=== PATIENT | male | born 1940 | race African-American/Black ===

== ENCOUNTER 2022-09-23 13:25 | Inpatient (IN) | payer OTHER ==
--- OUTSIDE RECORDS SUMMARY | 2022-09-23 13:32 | XMS REPORT | Continuity of Care Document ---
:1940 Author Organization [facility] t Address [address] [place] [address] Care Team Providers Name Role Phone Alberto Carter MD Primary Care Physician [phone] ALBERTO CARTER Attending Clinician Unavailable Srini VILLEGAS Attending Clinician Unavailable Srini Olsen Attending Clinician Alberto Carter MD Attending Clinician Doctor Unassigned, [place] Attending Clinician Unavailable Corrie Barnhart RN Attending Clinician Unavailable CRIS RODRIGUEZ Attending Clinician Unavailable Darnell Benitez Attending Clinician Cris Rodriguez MD Attending Clinician CEFERINO RAMACHANDRAN Attending Clinician Unavailable CEFERINO RAMACHANDRAN Attending Clinician Unavailable Ceferino Ramachandran DO Attending Clinician SHARI BARBOZA Attending Clinician Unavailable Jaye Maxwell DO Attending Clinician Shari Barboza MD Attending Clinician Ayad SAUCEDA, [place] Attending Clinician HAMILTON LION Attending Clinician Unavailable Hunter Olson MD Attending Clinician Paulo RUSSO, Paula Augustine Attending Clinician Unavailable Sagar BISWAS, Eric Attending Clinician Bib Sanchez DO Attending Clinician RIYA FORD Attending Clinician Unavailable HUNTER OLSON Attending Clinician Unavailable HUNTER OLSON Attending Clinician Unavailable Andreas RUSSO, Tanesha Attending Clinician Logan BISWAS, Riya Rojas Attending Clinician [phone] Rita Barnes MD Attending Clinician Irina Gaxiola MD Attending Clinician IRINA GAXIOLA Attending Clinician Unavailable MICHELE CARNEY Attending Clinician Unavailable Po, [facility] Attending Clinician Unavailable Jacob North MD Attending Clinician JACOB NORTH Attending Clinician Unavailable ASHLIE ANGEL Attending Clinician Unavailable Dakota BISWAS, Saumya Attending Clinician Todd Redd MD Attending Clinician TODD REDD Attending Clinician Unavailable Helio BISWAS, Nolberto Attending Clinician Kemal Lombardi MD Attending Clinician [phone] ALLAN KIRAN Attending Clinician Unavailable Po, [facility] Attending Clinician Unavailable Allan Sanders Attending Clinician 1, [facility] Attending Clinician Unavailable CRIS RODRIGUEZ Admitting Clinician Unavailable Cris Rodriguez MD Admitting Clinician SHARI BARBOZA Admitting Clinician Unavailable Shari Barboza MD Admitting Clinician Bib Sanchez DO Admitting Clinician Irina Gaxiola MD Admitting Clinician IRINA GAXIOLA Admitting Clinician Unavailable Kemal Lombardi MD Admitting Clinician [phone] Payers Payer Name Policy Type Policy Number Effective Date Expiration Date S ource MEDICARE PART A [id number] 2006 \\T\\ B 00:00:00 CARLOS HEADLEY [id number] 2013 00:00:00 Problems Condition Condition Condition Status Onset Resolution Last Treating Co mments Source Name Details Category Date Date Treatment Clinician Date Acute on Acute on Disease Active 2021-09 Unive rs chronic chronic 1-17 [place] congest[place] heart heart 00 Medical failure, failure, Branch unspecifie unspecifie d heart d heart failure failure type type Acute on Acute on Disease Active Unive rs chronic chronic 3-27 ity of diastolic diastolic 00:00: [place] congestive congestive 00 Me dical heart heart Branch failure failure Pulmonary Pulmonary Disease Active Uni vers hypertensi hypertensi 3-27 it y of on on 00:00: [place] 00 Medical Branch Acute Acute Disease Active Univers left-sided left-sided 3-26 it y of CHF CHF 00:00: [place] (congestiv (congestiv 00 Me dical e heart e heart Branch failure) failure) Hypoglycem Hypoglycem Disease Active U nivers ia ia 5-13 ity of 00:00: [place] 00 Medical Branch Syncope Syncope Disease Active Univers and and 3-08 ity of collapse collapse 00:00: [place] 00 Medical Branch Seizure Seizure Disease Active Univers 3-07 ity of 00:00: [place] 00 Medical Branch Acute Acute Disease Active Univers exacerbati exacerbati 7-14 it y of on of CHF on of CHF 00:00: [place] (congestiv (congestiv 00 Me dical e heart e heart Branch failure) failure) CHF CHF Disease Active Univers (congestiv (congestiv 6-23 it y of e heart e heart 00:00: [place] failure) failure) 00 Medica l Branch Obesity Obesity Disease Active 2015-09 Univers 0-01 ity of 00:00: [place] 00 Medical Branch 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 Univers diabetes diabetes 0-27 ity of mellitus mellitus 00:00: [place] without without 00 Medical complicati complicati Br anch on on Essential Essential Disease Active 2014-09 Uni vers hypertensi hypertensi 0-27 it y of on on 00:00: [place] 00 Medical Branch Gastroesop Gastroesop Disease Active 2014-09 U beatriz hageal hageal 0-27 ity of reflux reflux 00:00: [place] disease disease 00 Medical without without Branch esophagiti esophagiti s s Hyperchole Hyperchole Disease Active 2014-09 U beatriz sterolemia sterolemia 0-27 it y of 00:00: [place] 00 Medical Branch Coronary Coronary Disease Active 2014-09 Unive rs artery artery 0-27 ity of disease disease 00:00: [place] involving involving 00 Medi tushar coronary coronary Branch bypass bypass graft of graft of false pass false pass heart heart without without angina angina pectoris pectoris Hypothyroi Hypothyroi Disease Active 2014-09 U beatriz dism due dism due 0-27 ity of to to 00:00: [place] acquired acquired 00 Medica l atrophy of atrophy of Br anch thyroid thyroid Allergies, Adverse Reactions, Alerts Allergy Allergy Status Severity Reaction(s) Onset Inactive Treating Comm ents Source Name Type Date Date Clinician NO KNOWN Drug Active Univers ALLERGIE Class ity of S [facility] Social History Social Habit Start Date Stop Date Quantity Comments Source Exposure to 2022-08-21 2022-08-31 Not sure [facility] [place] of SARS-CoV-2 00:00:00 10:39:00 [place] Medical (event) Branch History SDOH 2022-07-25 2022-07-25 2 University o f Transport Med 00:00:00 00:00:00 [place] Medic al Branch History SDOH 2022-07-25 2022-07-25 2 University o f Transport Non-Med 00:00:00 00:00:00 [facility] edical Branch Tobacco use and 2022-07-22 2022-07-22 Smokeless tobacco Un iversity of exposure 00:00:00 00:00:00 non-user [facility] Alcohol intake 2022-07-22 2022-07-22 0 /d University of 00:00:00 00:00:00 [facility] History of 2006-09-29 Cigar Smoker University o f tobacco use 00:00:00 [facility] Sex [birth year] Universit y of 00:00:00 00:00:00 [facility] Smoking Status Start Date Stop Date Source Ex-smoker 2022-07-22 00:00:00 2022-07-22 00:00:00 [facility] Medications Ordered Filled Start Stop Current Ordering Indication Dosage Frequency Signature Comments Components Source Medication Medication Date Date Medication? Clinician (SIG) Name Name AMLODIPINE Yes TAKE 1 Unive rs 10 mg 1-12 TABLET BY ity of tablet 00:00: MOUTH [place] 00 EVERY DAY Medical IN THE Branch MORNING AMLODIPINE Yes TAKE 1 Unive rs 10 mg 1-12 TABLET BY ity of tablet 00:00: MOUTH [place] 00 EVERY DAY Medical IN THE Branch MORNING AMLODIPINE Yes TAKE 1 Unive rs 10 mg 1-12 TABLET BY ity of tablet 00:00: MOUTH [place] 00 EVERY DAY Medical IN THE Branch MORNING levothyroxi Yes 88ug Take 1 Univ ers ne 88 mcg 1-09 tablet by ity o f tablet 00:00: mouth [place] 00 every Medical morning. Branch levothyroxi Yes 88ug Take 1 Univ ers ne 88 mcg 1-09 tablet by ity o f tablet 00:00: mouth [place] 00 every Medical morning. Branch levothyroxi Yes 88ug Take 1 Univ ers ne 88 mcg 1-09 tablet by ity o f tablet 00:00: mouth [place] 00 every Medical morning. Branch levothyroxi Yes 88ug Take 1 Univ ers ne 88 mcg 1-09 tablet by ity o f tablet 00:00: mouth [place] 00 every Medical morning. Branch hydrALAZINE 2021-09 Yes [id number] 50mg Take 1 Univers 50 mg 2-29 tablet by ity of tablet 00:00: mouth [place] 00 every 8 Medical (eight) Branch hours. furosemide 2021-09 Yes [id number] 40mg Take 1 Univers 40 mg 2-29 tablet by ity of tablet 00:00: mouth [place] 00 every Medical morning Branch and evening. hydrALAZINE 2021-09 Yes [id number] 50mg Take 1 Univers 50 mg 2-29 tablet by ity of tablet 00:00: mouth [place] 00 every 8 Medical (eight) Branch hours. furosemide 2021-09 Yes [id number] 40mg Take 1 Univers 40 mg 2-29 tablet by ity of tablet 00:00: mouth [place] 00 every Medical morning Branch and evening. hydrALAZINE 2021-09 Yes [id number] 50mg Take 1 Univers 50 mg 2-29 tablet by ity of tablet 00:00: mouth [place] 00 every 8 Medical (eight) Branch hours. furosemide 2021-09 Yes [id number] 40mg Take 1 Univers 40 mg 2-29 tablet by ity of tablet 00:00: mouth [place] 00 every Medical morning Branch and evening. hydrALAZINE 2021-09 Yes [id number] 50mg Take 1 Univers 50 mg 2-29 tablet by ity of tablet 00:00: mouth [place] 00 every 8 Medical (eight) Branch hours. furosemide 2021-09 Yes [id number] 40mg Take 1 Univers 40 mg 2-29 tablet by ity of tablet 00:00: mouth [place] 00 every Medical morning Branch and evening. hydrALAZINE 2021-09 Yes [id number] 50mg Take 1 Univers 50 mg 2-29 tablet by ity of tablet 00:00: mouth [place] 00 every 8 Medical (eight) Branch hours. furosemide 2021-09 Yes [id number] 40mg Take 1 Univers 40 mg 2-29 tablet by ity of tablet 00:00: mouth [place] 00 every Medical morning Branch and evening. hydrALAZINE 2021-09 Yes [id number] 50mg Take 1 Univers 50 mg 2-29 tablet by ity of tablet 00:00: mouth [place] 00 every 8 Medical (eight) Branch hours. furosemide 2021-09 Yes [id number] 40mg Take 1 Univers 40 mg 2-29 tablet by ity of tablet 00:00: mouth [place] 00 every Medical morning Branch and evening. hydrALAZINE 2021-09 Yes [id number] 50mg Take 1 Univers 50 mg 2-29 tablet by ity of tablet 00:00: mouth [place] 00 every 8 Medical (eight) Branch hours. furosemide 2021-09 Yes [id number] 40mg Take 1 Univers 40 mg 2-29 tablet by ity of tablet 00:00: mouth [place] 00 every Medical morning Branch and evening. CLOPIDOGREL 2021-09 Yes TAKE 1 Univ ers 75 mg 2-28 TABLET BY ity of tablet 00:00: MOUTH [place] 00 EVERY DAY Medical Branch CLOPIDOGREL 2021-09 Yes TAKE 1 Univ ers 75 mg 2-28 TABLET BY ity of tablet 00:00: MOUTH [place] 00 EVERY DAY Medical Branch CLOPIDOGREL 2021-09 Yes TAKE 1 Univ ers 75 mg 2-28 TABLET BY ity of tablet 00:00: MOUTH [place] 00 EVERY DAY Medical Branch CLOPIDOGREL 2021- Yes TAKE 1 Univ ers 75 mg 2-28 TABLET BY ity of tablet 00:00: MOUTH [place] 00 EVERY DAY Medical Branch CLOPIDOGREL 2021- Yes TAKE 1 Univ ers 75 mg 2-28 TABLET BY ity of tablet 00:00: MOUTH [place] 00 EVERY DAY Medical Branch CLOPIDOGREL 2021- Yes TAKE 1 Univ ers 75 mg 2-28 TABLET BY ity of tablet 00:00: MOUTH [place] 00 EVERY DAY Medical Branch CLOPIDOGREL 2021- Yes TAKE 1 Univ ers 75 mg 2-28 TABLET BY ity of tablet 00:00: MOUTH [place] 00 EVERY DAY Medical Branch CLOPIDOGREL 2021- Yes TAKE 1 Univ ers 75 mg 2-28 TABLET BY ity of tablet 00:00: MOUTH [place] 00 EVERY DAY Medical Branch hydrALAZINE 2021-09 Yes 50mg Take 1 Univ ers 50 mg 2-23 tablet by ity of tablet 00:00: mouth in [place] 00 the Medical morning Branch and 1 tablet in the evening. hydrALAZINE 2021-09 Yes 50mg Take 1 Univ ers 50 mg 2-23 tablet by ity of tablet 00:00: mouth in [place] 00 the Medical morning Branch and 1 tablet in the evening. hydrALAZINE 2021-09 Yes 50mg Take 1 Univ ers 50 mg 2-23 tablet by ity of tablet 00:00: mouth in [place] 00 the Medical morning Branch and 1 tablet in the evening. furosemide 2021-09- Yes 40mg Take 1 Univ ers 40 mg 2-23 03-24 tablet by ity of tablet 00:00: 04:59 mouth in [place] 00 :00 the Medical morning Branch for 90 days. atorvastati 2021-09- Yes 40mg Take 1 Uni vers n 40 mg 2-23 03-24 tablet by ity of tablet 00:00: 04:59 mouth at [place] 00 :00 bedtime Medical for 90 Branch days. furosemide 2021-09- Yes 40mg Take 1 Univ ers 40 mg 2-23 03-24 tablet by ity of tablet 00:00: 04:59 mouth in [place] 00 :00 the Medical morning Branch for 90 days. atorvastati 2021-09- Yes 40mg Take 1 Uni vers n 40 mg 2-23 03-24 tablet by ity of tablet 00:00: 04:59 mouth at [place] 00 :00 bedtime Medical for 90 Branch days. furosemide 2021-09- Yes 40mg Take 1 Univ ers 40 mg 2-23 11-24 tablet by ity of tablet 00:00: 04:59 mouth in [place] 00 :00 the Medical morning Branch for 90 days. atorvastati 2021-09- Yes 40mg Take 1 Uni vers n 40 mg 2-23 11-24 tablet by ity of tablet 00:00: 04:59 mouth at [place] 00 :00 bedtime Medical for 90 Branch days. atorvastati 2021-09- Yes 40mg Take 1 Uni vers n 40 mg 2-23 11-24 tablet by ity of tablet 00:00: 04:59 mouth at [place] 00 :00 bedtime Medical for 90 Branch days. atorvastati 2021-09- Yes 40mg Take 1 Uni vers n 40 mg 2-23 11-24 tablet by ity of tablet 00:00: 04:59 mouth at [place] 00 :00 bedtime Medical for 90 Branch days. atorvastati 2021-09- Yes 40mg Take 1 Uni vers n 40 mg 2-24 tablet by ity of tablet 00:00: 04:59 mouth at [place] 00 :00 bedtime Medical for 90 Branch days. atorvastati 2021-09- Yes 40mg Take 1 Uni vers n 40 mg 2-24 tablet by ity of tablet 00:00: 04:59 mouth at [place] 00 :00 bedtime Medical for 90 Branch days. atorvastati 2021-09- Yes 40mg Take 1 Uni vers n 40 mg 2-23 11-24 tablet by ity of tablet 00:00: 04:59 mouth at [place] 00 :00 bedtime Medical for 90 Branch days. atorvastati 2021-09- Yes 40mg Take 1 Uni vers n 40 mg 2-23 11-24 tablet by ity of tablet 00:00: 04:59 mouth at [place] 00 :00 bedtime Medical for 90 Branch days. atorvastati 2021-09- Yes 40mg Take 1 Uni vers n 40 mg 2-23 11-24 tablet by ity of tablet 00:00: 04:59 mouth at [place] 00 :00 bedtime Medical for 90 Branch days. furosemide 2021-09- No 40mg Take 1 Univ ers 40 mg 2-25 08-29 tablet by ity of tablet 00:00: 00:00 mouth in [place] 00 :00 the Medical morning Branch for 90 days. hydrALAZINE 2021-09- No 50mg Take 1 Uni vers 50 mg -08-31 tablet by ity of tablet 00:00: 00:00 mouth in [place] 00 :00 the Medical morning Branch and 1 tablet in the evening. furosemide 2021-09- No 40mg Take 1 Univ ers 40 mg -25 08- tablet by ity of tablet 00:00: 00:00 mouth in [place] 00 :00 the Medical morning Branch for 90 days. hydrALAZINE 2021-09- No 50mg Take 1 Uni vers 50 mg -08-31 tablet by ity of tablet 00:00: 00:00 mouth in [place] 00 :00 the Medical morning Branch and 1 tablet in the evening. ferrous 2021-09 Yes [id number] 325mg Take 1 Un yassine sulfate 325 1-22 tablet by ity of mg (65 mg 00:00: [place] 00 the Medical tablet morning. [place] ferrous 2021-09 Yes [id number] 325mg Take 1 Un yassine sulfate 325 1-22 tablet by ity of mg (65 mg 00:00: [place] 00 the Medical tablet morning. Branch ferrous 2021-09 Yes [id number] 325mg Take 1 Un yassine sulfate 325 1-22 tablet by ity of mg (65 mg 00:00: [place] 00 the Medical tablet morning. [place] ferrous 2021-09 Yes [id number] 325mg Take 1 Un yassine sulfate 325 1-22 tablet by ity of mg (65 mg 00:00: [place] iron[place] 00 the Medical tablet morning. [place] ferrous 2021-09 Yes [id number] 325mg Take 1 Un yassine sulfate 325 1-22 tablet by ity of mg (65 mg 00:00: [place] iron[place] 00 the Medical tablet morning. Branch ferrous 2021-09 Yes [id number] 325mg Take 1 Un yassine sulfate 325 1-22 tablet by ity of mg (65 mg 00:00: [place] iron[place] 00 the Medical tablet morning. [place] ferrous 2021-09 Yes [id number] 325mg Take 1 Un yassine sulfate 325 1-22 tablet by ity of mg (65 mg 00:00: [place] 00 the Medical tablet morning. Branch ferrous 2021-09 Yes [id number] 325mg Take 1 Un yassine sulfate 325 1-22 tablet by ity of mg (65 mg 00:00: [place] 00 the Medical tablet morning. Branch ferrous 2021-09 Yes [id number] 325mg Take 1 Un yassine sulfate 325 1-22 tablet by ity of mg (65 mg 00:00: [place] 00 the Medical tablet morning. Branch ferrous 2021-09 Yes [id number] 325mg Take 1 Un yassine sulfate 325 1-22 tablet by ity of mg (65 mg 00:00: [place] 00 the Medical tablet morning. Branch ferrous 2021-09 Yes [id number] 325mg Take 1 Un yassine sulfate 325 1-22 tablet by ity of mg (65 mg 00:00: [place] 00 the Medical tablet morning. Branch ferrous 2021-09 Yes [id number] 325mg Take 1 Un yassine sulfate 325 1-22 tablet by ity of mg (65 mg 00:00: [place] iron[place] 00 the Medical tablet morning. Branch ferrous 2021-09 Yes [id number] 325mg Take 1 Un yassine sulfate 325 1-22 tablet by ity of mg (65 mg 00:00: [place] iron[place] 00 the Medical tablet morning. Branch ferrous 2021-09 Yes [id number] 325mg Take 1 Un yassine sulfate 325 1-22 tablet by ity of mg (65 mg 00:00: [place] iron[place] 00 the Medical tablet morning. Branch ferrous 2021-09 Yes [id number] 325mg Take 1 Un yassine sulfate 325 1-22 tablet by ity of mg (65 mg 00:00: [place] iron[place] 00 the Medical tablet morning. Branch ferrous 2021-09 Yes [id number] 325mg Take 1 Un yassine sulfate 325 1-22 tablet by ity of mg (65 mg 00:00: [place] iron[place] 00 the Medical tablet morning. Branch hydrALAZINE 2021-09 Yes 50mg 50 mg, Univ ers (APRESOLINE 1-21 Oral, TID, it y of ) tablet 50 20:00: First dose [place] mg 00 (after Medical [facility] Branch modificati on) on 07/24/22 at 1400, Until Discontinu ed, Routine aspirin 81 2021-09 Yes 81mg Take 81 mg U nivers mg chewable 1-21 by mouth ity of tablet 18:17: daily. [address] aspirin 81 2021-09 Yes 81mg Take 81 mg U nivers mg chewable 1-21 by mouth ity of tablet 18:17: daily. [address] Branch aspirin 81 2021-09 Yes 81mg Take 81 mg U nivers mg chewable 1-21 by mouth ity of tablet 18:17: daily. [address] aspirin 81 2021-09 Yes 81mg Take 81 mg U nivers mg chewable 1-21 by mouth ity of tablet 18:17: daily. [address] Branch aspirin 81 2021-09 Yes 81mg Take 81 mg U nivers mg chewable 1-21 by mouth ity of tablet 18:17: daily. [address] aspirin 81 2021-09 Yes 81mg Take 81 mg U nivers mg chewable 1-21 by mouth ity of tablet 18:17: daily. [address] aspirin 81 2021-09 Yes 81mg Take 81 mg U nivers mg chewable 1-21 by mouth ity of tablet 18:17: daily. [address] aspirin 81 2021-09 Yes 81mg Take 81 mg U nivers mg chewable 1-21 by mouth ity of tablet 18:17: daily. [address] aspirin 81 2021-09 Yes 81mg Take 81 mg U nivers mg chewable 1-21 by mouth ity of tablet 18:17: daily. [address] aspirin 81 2021-09 Yes 81mg Take 81 mg U nivers mg chewable 1-21 by mouth ity of tablet 18:17: daily. [address] aspirin 81 2021-09 Yes 81mg Take 81 mg U nivers mg chewable 1-21 by mouth ity of tablet 18:17: daily. [address] aspirin 81 2021-09 Yes 81mg Take 81 mg U nivers mg chewable 1-21 by mouth ity of tablet 18:17: daily. [address] aspirin 81 2021-09 Yes 81mg Take 81 mg U nivers mg chewable 1-21 by mouth ity of tablet 18:17: daily. [address] aspirin 81 2021-09 Yes 81mg Take 81 mg U nivers mg chewable -21 by mouth ity of tablet 18:17: daily. [address] aspirin 81 2021-09 Yes 81mg Take 81 mg U nivers mg chewable -21 by mouth ity of tablet 18:17: daily. [address] aspirin 81 2021-09 Yes 81mg Take 81 mg U nivers mg chewable -21 by mouth ity of tablet 18:17: daily. [address] magnesium 2021-09- No 2g 2 g, IV Univ ers sulfate in 09-23 Piggyback, it y of water 2 16:00: 18:04 Administer Julio as gram/50 mL 00 :00 over 60 Medica l (4 %) Minutes, Branch infusion 2 ONCE, 1 g dose, On [facility] 07/24/22 at 1000, Routine KCL 2021-09 No 40meq 40 mEq, Univers (KLOR-CON 09-23 Oral, ity of M20) tablet 16:00: 17:01 ONCE, 1 [place] 40 mEq 00 :00 dose, On Medical [facility] 07/24/22 at 1000, Routine ferrous 2021-09 Yes 325mg 325 mg, Univer s sulfate 09-23 Oral, ity of tablet 325 15:00: DAILY, [place] mg 00 First dose Medical on [facility] 07/24/22 at 0900, Until Discontinu ed, Routine insulin NPH 2021-09 Yes 10U 10 Units, U nivers and regular 09-23 Subcutaneo it y of human 70-30 14:30: us, BIDAC, [place] (70-30 00 First dose Medical U-100 on [facility] INSULIN) 07/24/22 100 unit/mL at 0830, (70-30) Until injection Discontinu 10 Units ed, Routine furosemide 2021-09 Yes 40mg 40 mg, IV Un yassine (LASIX) 09-23 Push, BID, ity of injection 14:00: First dose [place] 40 mg 00 (after Medical last Branch modificati on) on [facility] 07/24/22 at 0800, Until Discontinu ed, ELO hydrALAZINE 2022-1 2022- No 50mg 50 mg, Uni vers (APRESOLINE 09-23- Oral, BID, i ty of ) tablet 50 02:00: 15:09 First dose [place] mg 00 :28 (after Medical last Branch modificati on) on 07/23/22 at 1999, Until Discontinu ed, Routine atorvastati 2021-09- Yes [id number] 40mg Take 1 Univers n 40 mg -23 08-22 tablet by ity of tablet 00:00: 05:59 mouth at [place] 00 :00 bedtime Medical for 30 Branch days. carvediloL 2021-09- Yes [id number] 25mg Take 1 Univers 25 mg -23 08-22 tablet by ity of tablet 00:00: 05:59 mouth in [place] 00 :00 the Medical morning Branch and 1 tablet in the evening. Do all this for 30 days. hydrALAZINE 2021-09- Yes [id number] 50mg Take 1 Univers 50 mg -23 08-22 tablet by ity of tablet 00:00: 05:59 mouth in [place] 00 :00 the Medical morning Branch and 1 tablet at noon and 1 tablet in the evening. Do all this for 30 days. furosemide 2021-09- Yes [id number] 40mg Take 1 Univers 40 mg -23 08-22 tablet by ity of tablet 00:00: 05:59 mouth [place] 00 :00 every Medical morning Branch and evening for 30 days. atorvastati 2021-09- Yes [id number] 40mg Take 1 Univers n 40 mg -23 08-22 tablet by ity of tablet 00:00: 05:59 mouth at [place] 00 :00 bedtime Medical for 30 Branch days. carvediloL 2021-09- Yes [id number] 25mg Take 1 Univers 25 mg -21 12-22 tablet by ity of tablet 00:00: 05:59 mouth in [place] 00 :00 the Medical morning Branch and 1 tablet in the evening. Do all this for 30 days. hydrALAZINE 2021-09- Yes [id number] 50mg Take 1 Univers 50 mg -21 12-22 tablet by ity of tablet 00:00: 05:59 mouth in [place] 00 :00 the Medical morning Branch and 1 tablet at noon and 1 tablet in the evening. Do all this for 30 days. furosemide 2021-09- Yes [id number] 40mg Take 1 [facility] 40 mg 1-21 12-22 tablet by ity of tablet 00:00: 05:59 mouth [place] 00 :00 every Medical morning Branch and evening for 30 days. atorvastati 2021-09- Yes [id number] 40mg Take 1 Univers n 40 mg 1-21 12-22 tablet by ity of tablet 00:00: 05:59 mouth at [place] 00 :00 bedtime Medical for 30 Branch days. carvediloL 2021-09- Yes [id number] 25mg Take 1 Univers 25 mg 1-21 12-22 tablet by ity of tablet 00:00: 05:59 mouth in [place] 00 :00 the Medical morning Branch and 1 tablet in the evening. Do all this for 30 days. hydrALAZINE 2021-09- Yes [id number] 50mg Take 1 Univers 50 mg 1-21 12-22 tablet by ity of tablet 00:00: 05:59 mouth in [place] 00 :00 the Medical morning Branch and 1 tablet at noon and 1 tablet in the evening. Do all this for 30 days. furosemide 2021-09- Yes [id number] 40mg Take 1 [facility] 40 mg 1-21 12-22 tablet by ity of tablet 00:00: 05:59 mouth [place] 00 :00 every Medical morning Branch and evening for 30 days. atorvastati 2021-09- Yes [id number] 40mg Take 1 Univers n 40 mg 1-21 12-22 tablet by ity of tablet 00:00: 05:59 mouth at [place] 00 :00 bedtime Medical for 30 Branch days. carvediloL 2021-09- Yes [id number] 25mg Take 1 Univers 25 mg 1-21 12-22 tablet by ity of tablet 00:00: 05:59 mouth in [place] 00 :00 the Medical morning Branch and 1 tablet in the evening. Do all this for 30 days. hydrALAZINE 2021-09- Yes [id number] 50mg Take 1 Univers 50 mg 1-21 12-22 tablet by ity of tablet 00:00: 05:59 mouth in [place] 00 :00 the Medical morning Branch and 1 tablet at noon and 1 tablet in the evening. Do all this for 30 days. furosemide 2021-09- Yes [id number] 40mg Take 1 Univers 40 mg 09-23-22 tablet by ity of tablet 00:00: 05:59 mouth [place] 00 :00 every Medical morning Branch and evening for 30 days. atorvastati 2021-09- Yes [id number] 40mg Take 1 Univers n 40 mg 09-23-22 tablet by ity of tablet 00:00: 05:59 mouth at [place] 00 :00 bedtime Medical for 30 Branch days. carvediloL 2021-09- Yes [id number] 25mg Take 1 Univers 25 mg 09-23- tablet by ity of tablet 00:00: 05:59 mouth in [place] 00 :00 the Medical morning Branch and 1 tablet in the evening. Do all this for 30 days. hydrALAZINE 2021-09- Yes [id number] 50mg Take 1 Univers 50 mg 09-23- tablet by ity of tablet 00:00: 05:59 mouth in [place] 00 :00 the Medical morning Branch and 1 tablet at noon and 1 tablet in the evening. Do all this for 30 days. furosemide 2021-09- Yes [id number] 40mg Take 1 [facility] 40 mg 09-23 tablet by ity of tablet 00:00: 05:59 mouth [place] 00 :00 every Medical morning Branch and evening for 30 days. hydrALAZINE 2021-09- No 25mg 25 mg, Uni vers (APRESOLINE -23 07-20 Oral, ity of ) tablet 25 16:00: 15:47 ONCE, 1 [place] mg 00 :00 dose, On Medical [place] [facility] 07/23/22 at 1000, Routine atorvastati 2021-09 Yes 40mg 40 mg, Univ ers n (LIPITOR) 1-20 Oral, QHS, it y of tablet 40 03:00: First dose [place] mg 00 (after Medical last Branch modificati on) on [facility] 07/22/22 at 2100, Until Discontinu ed, Routine metFORMIN 2021-09- No 500mg 500 mg, Uni vers (GLUCOPHAGE -22 07-20 Oral, BID it y of ) tablet 23:00: 20:49 MEALS, [place] 500 mg 00 :14 First dose Medical on Sat Branch 07/22/22 at 1700, Until Discontinu ed, Routine furosemide 2021-09- No 40mg 40 mg, IV U nivers (LASIX) 09-21 Push, TID, ity o f injection 20:00: 20:10 First dose [place] 40 mg 00 :17 (after Medical last Branch modificati on) on 07/22/22 at 1400, Until Discontinu ed, ELO atorvastati 2021-09- No 10mg 10 mg, Uni vers n (LIPITOR) 09-21 Oral, QHS, i ty of tablet 10 03:00: 20:43 First dose [place] mg 00 :00 on [facility] 07/21/22 Branch at 2100, Until Discontinu ed, Routine enoxaparin 2021-09 Yes 40mg 40 mg, Unive rs (LOVENOX) -18 Subcutaneo ity of injection 15:00: us, DAILY, [place] 40 mg 00 First dose Medical on [place] Branch 07/21/22 at 0900, Until Discontinu ed, Routine clopidogreL 2021-09 Yes 75mg 75 mg, Univ ers (PLAVIX) 75 -18 Oral, ity of mg tablet 15:00: DAILY, [place] 75 mg 00 First dose Medical on [place] [facility] 07/21/22 at 0900, Until Discontinu ed, Routine aspirin 2021-09 Yes 81mg 81 mg, [facility] chewable 18 Oral, ity of tablet 81 15:00: DAILY, [place] mg 00 First dose Medical on [place] [facility] 07/21/22 at 0900, Until Discontinu ed, Routine amLODIPine 2021-09 Yes 10mg 10 mg, Unive rs (NORVASC) 18 Oral, ity of tablet 10 15:00: DAILY, [place] mg 00 First dose Medical on [place] [facility] 07/21/22 at 0900, Until Discontinu ed, Routine Sliding 2021-09 Yes Subcutaneo Univ ers Scale -18 us, TID ity of Insulin - 14:00: MEALS+HS, [place] as Lispro 00 First dose Medical (HumaLOG) + on [facility] 07/21/22 Testing at 0800, Until Discontinu ed, Routine carvediloL 2021-09 Yes 25mg 25 mg, Unive rs (COREG) 1-18 Oral, BID, ity of tablet 25 14:00: First dose [place] mg 00 on [facility] 07/21/22 Branch at 0800, Until Discontinu ed, Routine hydrALAZINE 2021-09 No 25mg 25 mg, Uni vers (APRESOLINE 09-2020 Oral, BID, i ty of ) tablet 25 14:00: 14:48 First dose [place] mg 00 :02 on [facility] 07/21/22 Branch at 0800, Until Discontinu ed, Routine furosemide 2021-09 No 40mg 40 mg, IV U nivers (LASIX) 09-20 1119 Push, ity of injection 14:00: 16:58 Q12H, [place] 40 mg 00 :05 First dose Medical (after Branch last reorder) on Sun07/21/22 at 0800, Until Discontinu ed, ELO levothyroxi 2021-09 Yes 88ug 88 mcg, Uni vers ne 09-20 Oral, ity of (SYNTHROID) 12:00: QAM-0600, [place] tablet 88 00 First dose Medi tushar mcg on [place] [facility] 07/21/22 at 0600, Until Discontinu ed, Routine acetaminoph 2021-09 Yes 650mg 650 mg, Un yassine en 09-20 Oral, ity of (TYLENOL) 06:10: Q6HPRN, [place] tablet 650 20 Starting Medic al mg on [facility] 07/21/22 at 0010, Until Discontinu ed, Routine, Pain (scale 1-3) glucagon 2021-09 Yes 1mg 1 mg, [facility] (GLUCAGEN 09-20 Intramuscu ity of DIAGNOSTIC 06:01: lar, PRN, [place] KIT) 17 Starting Medical injection 1 on [facility] mg 07/21/22 at 0001, Until Discontinu ed, ELO, Blood Glucose < or = 70 mg/dL and patient is unable to swallow or has mental changes. dextrose 50 2021-09 Yes 25mL 25 mL, Univ ers % in water 18 Slow IV ity of (D50W) 06:01: Push, PRN, [place] injection 17 Starting Medica l 25 mL on [facility] Branch 07/21/22 at 0001, Until Discontinu ed, ELO, Blood Glucose < or = 70 mg/dL and patient is unable to swallow or has mental status changes. nitroglycer 2021-09 No .5[in_u 0.5 Inch, Univers in (NITROL) 09-20 11-18 s] Transderma i ty of 2 % 00:30: 00:21 l (Apply [place] ointment 00 :00 To Skin), Medica l 0.5 Inch ONCE, 1 Branch dose, On [place] 07/20/22 at 1830, ELO furosemide 2021-09- No 40mg 40 mg, IV U nivers (LASIX) 09-19 Push, ity of injection 23:30: 23:52 ONCE, 1 [place] 40 mg 00 :00 dose, On Medical [place] Branch 07/20/22 at 1730, ELO losartan 25 2021-0 Yes 25mg Take 25 mg [facility] mg tablet 9-17 by mouth ity of 00:00: in the [place] 00 morning. Medical Branch losartan 25 2021-0 Yes 25mg Take 25 mg [facility] mg tablet 9-17 by mouth ity of 00:00: in the [place] 00 morning. Medical Branch losartan 25 2021-0 Yes 25mg Take 25 mg [facility] mg tablet 9-17 by mouth ity of 00:00: in the [place] 00 morning. Medical Branch losartan 25 2021-0 Yes 25mg Take 25 mg [facility] mg tablet 9-17 by mouth ity of 00:00: in the [place] 00 morning. Medical Branch losartan 25 2021-0 Yes 25mg Take 25 mg [facility] mg tablet 9-17 by mouth ity of 00:00: in the [place] 00 morning. Medical Branch losartan 25 2021-0 Yes 25mg Take 25 mg [facility] mg tablet 9-17 by mouth ity of 00:00: in the [place] 00 morning. Medical Branch losartan 25 2021-0 Yes 25mg Take 25 mg [facility] mg tablet 9-17 by mouth ity of 00:00: in the [place] 00 morning. Medical Branch losartan 25 2021-0 Yes 25mg Take 25 mg [facility] mg tablet 9-17 by mouth ity of 00:00: in the [place] 00 morning. Medical Branch losartan 25 2021-0 Yes 25mg Take 25 mg [facility] mg tablet 9-17 by mouth ity of 00:00: in the [place] 00 morning. Medical Branch losartan 25 2022-0 Yes 25mg Take 25 mg [facility] mg tablet 9-17 by mouth ity of 00:00: in the [place] morning. Medical Branch losartan 25 2022-0 Yes 25mg Take 25 mg [facility] mg tablet 9-17 by mouth ity of 00:00: in the [place] morning. Medical Branch losartan 25 2022-0 Yes 25mg Take 25 mg [facility] mg tablet 9-17 by mouth ity of 00:00: in the [place] morning. Medical Branch losartan 25 2022-0 Yes 25mg Take 25 mg [facility] mg tablet 9-17 by mouth ity of 00:00: in the [place] morning. Medical Branch amLODIPine 2022-0 Yes 10mg Take 1 Unive rs 10 mg 7-21 tablet by ity of tablet 00:00: mouth in [place] the morning. Branch amLODIPine 2022-0 Yes 10mg Take 1 Unive rs 10 mg 7-21 tablet by ity of tablet 00:00: mouth in [place] the morning. Branch amLODIPine 2022-0 Yes 10mg Take 1 Unive rs 10 mg 7-21 tablet by ity of tablet 00:00: mouth in [place] the Medical morning. Branch amLODIPine 2022-0 Yes 10mg Take 1 Unive rs 10 mg 7-21 tablet by ity of tablet 00:00: mouth in [place] the Medical morning. Branch amLODIPine 2022-0 Yes 10mg Take 1 Unive rs 10 mg 7-21 tablet by ity of tablet 00:00: mouth in [place] the Medical morning. Branch amLODIPine 2022-0 Yes 10mg Take 1 Unive rs 10 mg 7-21 tablet by ity of tablet 00:00: mouth in [place] the Medical morning. Branch amLODIPine 2022-0 Yes 10mg Take 1 Unive rs 10 mg 7-21 tablet by ity of tablet 00:00: mouth in [place] the Medical morning. Branch amLODIPine 2022-0 Yes 10mg Take 1 Unive rs 10 mg 7-21 tablet by ity of tablet 00:00: mouth in [place] the Medical morning. Branch amLODIPine 2022-0 Yes 10mg Take 1 Unive rs 10 mg 7-21 tablet by ity of tablet 00:00: mouth in [place] the Medical morning. Branch amLODIPine 2022-0 Yes 10mg Take 1 Unive rs 10 mg 7-21 tablet by ity of tablet 00:00: mouth in [place] 00 the Medical morning. Branch amLODIPine 2022-0 Yes 10mg Take 1 Unive rs 10 mg 7-21 tablet by ity of tablet 00:00: mouth in [place] 00 the Medical morning. Branch amLODIPine 2022-0 Yes 10mg Take 1 Unive rs 10 mg 7-21 tablet by ity of tablet 00:00: mouth in [place] 00 the Medical morning. Branch amLODIPine 2022-0 Yes 10mg Take 1 Unive rs 10 mg 7-21 tablet by ity of tablet 00:00: mouth in [place] 00 the Medical morning. Branch amLODIPine 2022-0 Yes 10mg Take 1 Unive rs 10 mg 7-21 tablet by ity of tablet 00:00: mouth in [place] 00 the Medical morning. Branch amLODIPine 2022-0 Yes 10mg Take 1 Unive rs 10 mg 7-21 tablet by ity of tablet 00:00: mouth in [place] 00 the Medical morning. Branch amLODIPine 2022-0 Yes 10mg Take 1 Unive rs 10 mg 7-21 tablet by ity of tablet 00:00: mouth in [place] 00 the Medical morning. Branch amLODIPine 2022-0 Yes 10mg Take 1 Unive rs 10 mg 7-21 tablet by ity of tablet 00:00: mouth in [place] 00 the Medical morning. Branch amLODIPine 2022-0 Yes 10mg Take 1 Unive rs 10 mg 7-21 tablet by ity of tablet 00:00: mouth in [place] 00 the Medical morning. Branch amLODIPine 2022-0 2023- No 10mg Take 1 Univ ers 10 mg 7-21 01-12 tablet by ity of tablet 00:00: 00:00 mouth in [place] 00 :00 the Medical morning. Branch hydrALAZINE 2022-0 Yes [id number] 25mg Take 1 [facility] 25 mg 7-08 tablet by ity of tablet 00:00: mouth 2 [place] 00 (two) Medical times Branch daily. hydrALAZINE 2022-0 Yes [id number] 25mg Take 1 [facility] 25 mg 7-08 tablet by ity of tablet 00:00: mouth 2 [place] 00 (two) Medical times Branch daily. hydrALAZINE 2022-0 Yes [id number] 25mg Take 1 [facility] 25 mg 7-08 tablet by ity of tablet 00:00: mouth 2 [place] 00 (two) Medical times Branch daily. hydrALAZINE 2022-0 Yes [id number] 25mg Take 1 [facility] 25 mg 7-08 tablet by ity of tablet 00:00: mouth 2 00 (two) Medical times Branch daily. hydrALAZINE 2-0 Yes [id number] 25mg Take 1 [facility] 25 mg 7-08 tablet by ity of tablet 00:00: mouth 2 00 (two) Medical times Branch daily. hydrALAZINE 2-0 2022- No [id number] 25mg Take 1 [facility] 25 mg 7-08 11-21 tablet by ity of tablet 00:00: 00:00 mouth 2 [place] 00 :00 (two) Medical times Branch daily. levothyroxi 2022-0 Yes 88ug Take 1 Univ ers ne 88 mcg 6-28 tablet by ity o f tablet 00:00: mouth [place] 00 every Medical morning. Branch clopidogreL 2022-0 Yes 75mg Take 1 Univ ers 75 mg 6-28 tablet by ity of tablet 00:00: mouth [place] 00 daily. Medical Branch levothyroxi 2022-0 Yes 88ug Take 1 Univ ers ne 88 mcg 6-28 tablet by ity o f tablet 00:00: mouth [place] 00 every Medical morning. Branch clopidogreL 2022-0 Yes 75mg Take 1 Univ ers 75 mg 6-28 tablet by ity of tablet 00:00: mouth [place] 00 daily. Medical Branch levothyroxi 2022-0 Yes 88ug Take 1 Univ ers ne 88 mcg 6-28 tablet by ity o f tablet 00:00: mouth [place] 00 every Medical morning. Branch clopidogreL 2022-0 Yes 75mg Take 1 Univ ers 75 mg 6-28 tablet by ity of tablet 00:00: mouth [place] 00 daily. Medical Branch levothyroxi 2022-0 Yes 88ug Take 1 Univ ers ne 88 mcg 6-28 tablet by ity o f tablet 00:00: mouth [place] 00 every Medical morning. Branch clopidogreL 2022-0 Yes 75mg Take 1 Univ ers 75 mg 6-28 tablet by ity of tablet 00:00: mouth [place] 00 daily. Medical Branch levothyroxi 2022-0 Yes 88ug Take 1 Univ ers ne 88 mcg 6-28 tablet by ity o f tablet 00:00: mouth [place] 00 every Medical morning. Branch clopidogreL 2022-0 Yes 75mg Take 1 Univ ers 75 mg 6-28 tablet by ity of tablet 00:00: mouth [place] 00 daily. Medical Branch levothyroxi 2022-0 Yes 88ug Take 1 Univ ers ne 88 mcg 6-28 tablet by ity o f tablet 00:00: mouth [place] 00 every Medical morning. Branch clopidogreL 2022-0 Yes 75mg Take 1 Univ ers 75 mg 6-28 tablet by ity of tablet 00:00: mouth [place] 00 daily. Medical Branch levothyroxi 2022-0 Yes 88ug Take 1 Univ ers ne 88 mcg 6-28 tablet by ity o f tablet 00:00: mouth [place] 00 every Medical morning. Branch clopidogreL 2022-0 Yes 75mg Take 1 Univ ers 75 mg 6-28 tablet by ity of tablet 00:00: mouth [place] 00 daily. Medical Branch levothyroxi 2022-0 Yes 88ug Take 1 Univ ers ne 88 mcg 6-28 tablet by ity o f tablet 00:00: mouth [place] 00 every Medical morning. Branch clopidogreL 2022-0 Yes 75mg Take 1 Univ ers 75 mg 6-28 tablet by ity of tablet 00:00: mouth [place] 00 daily. Medical Branch levothyroxi 2022-0 Yes 88ug Take 1 Univ ers ne 88 mcg 6-28 tablet by ity o f tablet 00:00: mouth [place] 00 every Medical morning. Branch clopidogreL 2022-0 Yes 75mg Take 1 Univ ers 75 mg 6-28 tablet by ity of tablet 00:00: mouth [place] 00 daily. Medical Branch levothyroxi 2022-0 Yes 88ug Take 1 Univ ers ne 88 mcg 6-28 tablet by ity o f tablet 00:00: mouth [place] 00 every Medical morning. Branch clopidogreL 2022-0 Yes 75mg Take 1 Univ ers 75 mg 6-28 tablet by ity of tablet 00:00: mouth [place] 00 daily. Medical Branch levothyroxi 2022-0 Yes 88ug Take 1 Univ ers ne 88 mcg 6-28 tablet by ity o f tablet 00:00: mouth [place] 00 every Medical morning. Branch clopidogreL 2022-0 Yes 75mg Take 1 Univ ers 75 mg 6-28 tablet by ity of tablet 00:00: mouth [place] 00 daily. Medical Branch levothyroxi 2022-0 Yes 88ug Take 1 Univ ers ne 88 mcg 6-28 tablet by ity o f tablet 00:00: mouth [place] 00 every Medical morning. Branch clopidogreL 2022-0 Yes 75mg Take 1 Univ ers 75 mg 6-28 tablet by ity of tablet 00:00: mouth [place] 00 daily. Medical Branch levothyroxi 2021-0 Yes 88ug Take 1 Univ ers ne 88 mcg 6-28 tablet by ity o f tablet 00:00: mouth [place] 00 every Medical morning. Branch levothyroxi 0 Yes 88ug Take 1 Univ ers ne 88 mcg 6-28 tablet by ity o f tablet 00:00: mouth [place] 00 every Medical morning. Branch levothyroxi 0 Yes 88ug Take 1 Univ ers ne 88 mcg 6-28 tablet by ity o f tablet 00:00: mouth [place] 00 every Medical morning. Branch levothyroxi 0 Yes 88ug Take 1 Univ ers ne 88 mcg 6-28 tablet by ity o f tablet 00:00: mouth [place] 00 every Medical morning. Branch levothyroxi 0 Yes 88ug Take 1 Univ ers ne 88 mcg 6-28 tablet by ity o f tablet 00:00: mouth [place] 00 every Medical morning. Branch levothyroxi 2021-0 3- No 88ug Take 1 Uni vers ne 88 mcg 6-28 01-07 tablet by ity of tablet 00:00: 00:00 mouth [place] 00 :00 every Medical morning. Branch clopidogreL 2021-0 2- No 75mg Take 1 Uni vers 75 mg 6-28 12-28 tablet by ity of tablet 00:00: 00:00 mouth [place] 00 :00 daily. Medical Branch Insulin 0 Yes Use as Univers Syringe-Nee 5-26 directed ity of dle U-100 1 00:00: [place] mL 30 gauge 00 Medical x 1/2" Syrg Branch Insulin 2021-0 Yes Use as [facility] Syringe-Nee 5-26 directed ity of dle U-100 1 00:00: [place] mL 30 gauge 00 Medical x 1/2" Syrg Branch Insulin 2021-0 Yes Use as Univers Syringe-Nee 5-26 directed ity of dle U-100 1 00:00: [place] mL 30 gauge 00 Medical x 1/2" Syrg Branch Insulin 2021-0 Yes Use as Univers Syringe-Nee 5-26 directed ity of dle U-100 1 00:00: [place] mL 30 gauge 00 Medical x 1/2" Syrg Branch Insulin 2022-0 Yes Use as Univers Syringe-Nee 5-26 directed ity of dle U-100 1 00:00: [place] mL 30 gauge 00 Medical x 1/2" Syrg Branch Insulin 2022-0 Yes Use as Univers Syringe-Nee 5-26 directed ity of dle U-100 1 00:00: [place] mL 30 gauge 00 Medical x 1/2" Syrg Branch Insulin 2022-0 Yes Use as Univers Syringe-Nee 5-26 directed ity of dle U-100 1 00:00: [place] mL 30 gauge 00 Medical x 1/2" Syrg Branch Insulin 2022-0 Yes Use as Univers Syringe-Nee 5-26 directed ity of dle U-100 1 00:00: [place] mL 30 gauge 00 Medical x 1/2" Syrg Branch Insulin 2-0 Yes Use as Univers Syringe-Nee 5-26 directed ity of dle U-100 1 00:00: [place] mL 30 gauge 00 Medical x 1/2" Syrg Branch Insulin 2022-0 Yes Use as Univers Syringe-Nee 5-26 directed ity of dle U-100 1 00:00: [place] mL 30 gauge 00 Medical x 1/2" Syrg Branch Insulin 2022-0 Yes Use as Univers Syringe-Nee 5-26 directed ity of dle U-100 1 00:00: [place] mL 30 gauge 00 Medical x 1/2" Syrg Branch Insulin 2022-0 Yes Use as Univers Syringe-Nee 5-26 directed ity of dle U-100 1 00:00: [place] mL 30 gauge 00 Medical x 1/2" Syrg Branch Insulin 2022-0 Yes Use as Univers Syringe-Nee 5-26 directed ity of dle U-100 1 00:00: [place] mL 30 gauge 00 Medical x 1/2" Syrg Branch Insulin 2022-0 Yes Use as Univers Syringe-Nee 5-26 directed ity of dle U-100 1 00:00: [place] mL 30 gauge 00 Medical x 1/2" Syrg Branch Insulin 2022-0 Yes Use as Univers Syringe-Nee 5-26 directed ity of dle U-100 1 00:00: [place] mL 30 gauge 00 Medical x 1/2" Syrg Branch Insulin 2022-0 Yes Use as Univers Syringe-Nee 5-26 directed ity of dle U-100 1 00:00: [place] mL 30 gauge 00 Medical x 1/2" Syrg Branch Insulin 2021-0 Yes Use as [facility] Syringe-Nee 5-26 directed ity of dle U-100 1 00:00: [place] mL 30 gauge 00 Medical x 1/2" Syrg Branch Insulin 2021-0 Yes Use as [facility] Syringe-Nee 5-26 directed ity of dle U-100 1 00:00: [place] mL 30 gauge 00 Medical x 1/2" Syrg Branch Insulin 2021-0 Yes Use as [facility] Syringe-Nee 5-26 directed ity of dle U-100 1 00:00: [place] mL 30 gauge 00 Medical x 1/2" Syrg Branch Insulin 2021-0 Yes Use as [facility] Syringe-Nee 5-26 directed ity of dle U-100 1 00:00: [place] mL 30 gauge 00 Medical x 1/2" Syrg Branch Insulin 2021-0 Yes Use as [facility] Syringe-Nee 5-26 directed ity of dle U-100 1 00:00: [place] mL 30 gauge 00 Medical x 1/2" Syrg Branch aspirin 81 Yes 81mg Take 81 mg U nivers mg chewable 5-06 by mouth ity of tablet 16:41: daily. [address] Branch aspirin 81 0 Yes 81mg Take 81 mg U nivers mg chewable 5-06 by mouth ity of tablet 16:41: daily. [address] Branch aspirin 81 0 Yes 81mg Take 81 mg U nivers mg chewable 5-06 by mouth ity of tablet 16:41: daily. [address] Branch aspirin 81 0 Yes 81mg Take 81 mg U nivers mg chewable 5-06 by mouth ity of tablet 16:41: daily. [address] Branch aspirin 81 0 Yes 81mg Take 81 mg U nivers mg chewable 5-06 by mouth ity of tablet 16:41: daily. [address] Branch atorvastati Yes [id number] 10mg Take 1 Univers n 10 mg 5-03 tablet by ity of tablet 00:00: mouth at [place] 00 bedtime. Medical Branch insulin NPH Yes [id number] 22 units Univers and regular 5-03 am and 18 ity of human 70-30 00:00: units [place] (NOVOLIN 00 evening Medical 70/30 U-100 Branch INSULIN) 100 unit/mL (70-30) injection atorvastati Yes [id number] 10mg Take 1 Univers n 10 mg 5-03 tablet by ity of tablet 00:00: mouth at [place] 00 bedtime. Medical Branch insulin NPH Yes [id number] 22 units [facility] and regular 5-03 am and 18 ity of human 70-30 00:00: units [place] (NOVOLIN 00 evening Medical 70/30 U-100 Branch INSULIN) 100 unit/mL (70-30) injection atorvastati Yes [id number] 10mg Take 1 [facility] n 10 mg 5-03 tablet by ity of tablet 00:00: mouth at [place] 00 bedtime. Medical Branch insulin NPH Yes [id number] 22 units Univers and regular 5-03 am and 18 ity of human 70-30 00:00: units [place] (NOVOLIN 00 evening Medical 70/30 U-100 Branch INSULIN) 100 unit/mL (70-30) injection atorvastati Yes [id number] 10mg Take 1 Univers n 10 mg 5-03 tablet by ity of tablet 00:00: mouth at [place] 00 bedtime. Medical Branch insulin NPH Yes [id number] 22 units Univers and regular 5-03 am and 18 ity of human 70-30 00:00: units [place] (NOVOLIN 00 evening Medical 70/30 U-100 Branch INSULIN) 100 unit/mL (70-30) injection atorvastati Yes [id number] 10mg Take 1 Univers n 10 mg 5-03 tablet by ity of tablet 00:00: mouth at [place] 00 bedtime. Medical Branch insulin NPH Yes [id number] 22 units Univers and regular 5-03 am and 18 ity of human 70-30 00:00: units [place] (NOVOLIN 00 evening Medical 70/30 U-100 Branch INSULIN) 100 unit/mL (70-30) injection insulin NPH Yes [id number] 22 units Univers and regular 5-03 am and 18 ity of human 70-30 00:00: units [place] (NOVOLIN 00 evening Medical 70/30 U-100 Branch INSULIN) 100 unit/mL (70-30) injection insulin NPH Yes [id number] 22 units [facility] and regular 5-03 am and 18 ity of human 70-30 00:00: units [place] (NOVOLIN 00 evening Medical 70/30 U-100 Branch INSULIN) 100 unit/mL (70-30) injection insulin NPH Yes [id number] 22 units Univers and regular 5-03 am and 18 ity of human 70-30 00:00: units [place] (NOVOLIN 00 evening Medical 70/30 U-100 Branch INSULIN) 100 unit/mL (70-30) injection insulin NPH Yes [id number] 22 units Univers and regular 5-03 am and 18 ity of human 70-30 00:00: units [place] (NOVOLIN 00 evening Medical 70/30 U-100 Branch INSULIN) 100 unit/mL (70-30) injection insulin NPH Yes [id number] 22 units Univers and regular 5-03 am and 18 ity of human 70-30 00:00: units [place] (NOVOLIN 00 evening Medical 70/30 U-100 Branch INSULIN) 100 unit/mL (70-30) injection insulin NPH Yes [id number] 22 units Univers and regular 5-03 am and 18 ity of human 70-30 00:00: units [place] (NOVOLIN 00 evening Medical 70/30 U-100 Branch INSULIN) 100 unit/mL (70-30) injection insulin NPH Yes [id number] 22 units Univers and regular 5-03 am and 18 ity of human 70-30 00:00: units [place] (NOVOLIN 00 evening Medical 70/30 U-100 Branch INSULIN) 100 unit/mL (70-30) injection insulin NPH Yes [id number] 22 units Univers and regular 5-03 am and 18 ity of human 70-30 00:00: units [place] (NOVOLIN 00 evening Medical 70/30 U-100 Branch INSULIN) 100 unit/mL (70-30) injection insulin NPH Yes [id number] 22 units Univers and regular 5-03 am and 18 ity of human 70-30 00:00: units [place] (NOVOLIN 00 evening Medical 70/30 U-100 Branch INSULIN) 100 unit/mL (70-30) injection insulin NPH Yes [id number] 22 units Univers and regular 5-03 am and 18 ity of human 70-30 00:00: units [place] (NOVOLIN 00 evening Medical 70/30 U-100 Branch INSULIN) 100 unit/mL (70-30) injection insulin NPH Yes [id number] 22 units Univers and regular 5-03 am and 18 ity of human 70-30 00:00: units [place] (NOVOLIN 00 evening Medical 70/30 U-100 Branch INSULIN) 100 unit/mL (70-30) injection insulin NPH Yes [id number] 22 units Univers and regular 5-03 am and 18 ity of human 70-30 00:00: units [place] (NOVOLIN 00 evening Medical 70/30 U-100 Branch INSULIN) 100 unit/mL (70-30) injection insulin NPH Yes [id number] 22 units Univers and regular 5-03 am and 18 ity of human 70-30 00:00: units [place] (NOVOLIN 00 evening Medical 70/30 U-100 Branch INSULIN) 100 unit/mL (70-30) injection insulin NPH Yes [id number] 22 units Univers and regular 5-03 am and 18 ity of human 70-30 00:00: units [place] (NOVOLIN 00 evening Medical 70/30 U-100 Branch INSULIN) 100 unit/mL (70-30) injection insulin NPH Yes [id number] 22 units Univers and regular 5-03 am and 18 ity of human 70-30 00:00: units [place] (NOVOLIN 00 evening Medical 70/30 U-100 Branch INSULIN) 100 unit/mL (70-30) injection insulin NPH Yes [id number] 22 units Univers and regular 5- am and 18 ity of human 70-30 00:00: units [place] (NOVOLIN 00 evening Medical 70/30 U-100 Branch INSULIN) 100 unit/mL (70-30) injection atorvastati 2021- No [id number] 10mg Take 1 Univers n 10 mg - 11-21 tablet by ity of tablet 00:00: 00:00 mouth at [place] 00 :00 bedtime. Medical Branch carvediloL Yes 25mg Take 25 mg U nivers 25 mg 4-18 by mouth 2 ity of tablet 00:00: (two) [place] 00 times Medical daily. Branch carvediloL 0 Yes 25mg Take 25 mg U nivers 25 mg 4-18 by mouth 2 ity of tablet 00:00: (two) [place] 00 times Medical daily. Branch carvediloL 2021-0 Yes 25mg Take 25 mg U nivers 25 mg 4-18 by mouth 2 ity of tablet 00:00: (two) [place] 00 times Medical daily. Branch carvediloL 2021-0 Yes 25mg Take 25 mg U nivers 25 mg 4-18 by mouth 2 ity of tablet 00:00: (two) [place] 00 times Medical daily. Branch carvediloL 0 Yes 25mg Take 25 mg U nivers 25 mg 4-18 by mouth 2 ity of tablet 00:00: (two) [place] 00 times Medical daily. Branch carvediloL 2021-2021- No 25mg Take 25 mg Univers 25 mg 4-18 11-21 by mouth 2 ity of tablet 00:00: 00:00 (two) [place] 00 :00 times Medical daily. Branch Immunizations Ordered Filled Immunization Date Status Comments [facility] e Immunization Name Name Pneumococcal 2022-07-24 Completed Universit y of Conjugate, PCV20 00:00:00 [facility] [place] dical (Prevnar 20) Branch Pneumococcal 2022-07-24 Completed Universit y of Conjugate, PCV20 00:00:00 [facility] [place] dical (Prevnar 20) Branch Pneumococcal 20 2022-07-24 Completed Universit y of Conjugate, PCV20 00:00:00 [facility] [place] dical (Prevnar 20) Branch Pneumococcal 20 2022-07-24 Completed Universit y of Conjugate, PCV20 00:00:00 [facility] [place] dical (Prevnar 20) Branch Pneumococcal 20 2022-07-24 Completed Universit y of Conjugate, PCV20 00:00:00 [facility] [place] dical (Prevnar 20) Branch Pneumococcal 20 2022-07-24 Completed Universit y of Conjugate, PCV20 00:00:00 [facility] [place] dical (Prevnar 20) Branch Pneumococcal 20 2022-07-24 Completed Universit y of Conjugate, PCV20 00:00:00 [facility] [place] dical (Prevnar 20) Branch Pneumococcal 20 2022-07-24 Completed Universit y of Conjugate, PCV20 00:00:00 [facility] [place] dical (Prevnar 20) Branch Pneumococcal 20 2022-07-24 Completed Universit y of Conjugate, PCV20 00:00:00 [place] [facility] dical (Prevnar 20) Branch Pneumococcal 20 2022-07-24 Completed Universit y of Conjugate, PCV20 00:00:00 [place] Me dical (Prevnar 20) Branch Pneumococcal 20 2022-07-24 Completed [facility] Conjugate, PCV20 00:00:00 [place] [facility] (Prevnar 20) Branch Pneumococcal 20 2022-07-24 Completed [facility] Conjugate, PCV20 00:00:00 [place] [facility] (Prevnar 20) Branch Pneumococcal 20 2022-07-24 Completed [facility] Conjugate, PCV20 00:00:00 [place] [facility] (Prevnar 20) Branch Pneumococcal 20 2022-07-24 Completed [facility] Conjugate, PCV20 00:00:00 [place] [facility] (Prevnar 20) Branch Pneumococcal 20 2022-07-24 Completed [facility] Conjugate, PCV20 00:00:00 [place] [facility] (Prevnar 20) Branch Pneumococcal 20 2022-07-24 Completed [facility] Conjugate, PCV20 00:00:00 [facility] (Prevnar 20) [facility] Influenza Virus 2022-07-10 Completed [facility] Vaccine,quad 00:00:00 [facility] 65+ Influenza Virus 2022-07-10 Completed [facility] Vaccine,quad 00:00:00 [facility] 65+ Influenza Virus 2022-07-10 Completed [facility] Vaccine,quad 00:00:00 [facility] 65+ Influenza Virus 2022-07-10 Completed [facility] Vaccine,quad 00:00:00 [place] [facility] 65+ Influenza Virus 2022-07-10 Completed [facility] Vaccine,quad 00:00:00 [place] [facility] 65+ Influenza Virus 2022-07-10 Completed [facility] Vaccine,quad 00:00:00 [place] [facility] 65+ Influenza Virus 2022-07-10 Completed [facility] Vaccine,quad 00:00:00 [place] [facility] 65+ Influenza Virus 2022-07-10 Completed [facility] Vaccine,quad 00:00:00 [place] [facility] 65+ Influenza Virus 2022-07-10 Completed [facility] Vaccine,quad 00:00:00 [place] [facility] 65+ Influenza Virus 2022-07-10 Completed [facility] Vaccine,quad 00:00:00 [place] [facility] 65+ Influenza Virus 2022-07-10 Completed [facility] Vaccine,quad 00:00:00 [place] [facility] 65+ Influenza Virus 2022-07-10 Completed [facility] Vaccine,quad 00:00:00 [place] [facility] 65+ Influenza Virus 2022-07-10 Completed [facility] Vaccine,quad 00:00:00 [place] [facility] 65+ Influenza Virus 2022-07-10 Completed [facility] Vaccine,quad 00:00:00 [place] [facility] 65+ Influenza Virus 2022-07-10 Completed [facility] Vaccine,quad 00:00:00 [place] [facility] 65+ Influenza Virus 2022-07-10 Completed [facility] Vaccine,quad 00:00:00 [place] [facility] 65+ Influenza Virus 2022-07-10 Completed [facility] Vaccine,quad 00:00:00 [place] [facility] 65+ Influenza Virus 2022-07-10 Completed [facility] Vaccine,quad 00:00:00 [place] [facility] 65+ SARS-COV-2 COVID-19 2021-10-31 Completed [facility] of PFIZER VACCINE 00:00:00 [facility] SARS-COV-2 COVID-19 2021-10-31 Completed [facility] of PFIZER VACCINE 00:00:00 [facility] SARS-COV-2 COVID-19 2021-10-31 Completed [facility] of PFIZER VACCINE 00:00:00 [facility] SARS-COV-2 COVID-19 2021-10-31 Completed [facility] of PFIZER VACCINE 00:00:00 [facility] SARS-COV-2 COVID-19 2021-10-31 Completed [facility] of PFIZER VACCINE 00:00:00 [facility] SARS-COV-2 COVID-19 2021-10-31 Completed [facility] of PFIZER VACCINE 00:00:00 [facility] SARS-COV-2 COVID-19 2021-10-31 Completed [facility] of PFIZER VACCINE 00:00:00 [facility] SARS-COV-2 COVID-19 2021-10-31 Completed [facility] of PFIZER VACCINE 00:00:00 [facility] SARS-COV-2 COVID-19 2021-10-31 Completed [facility] of PFIZER VACCINE 00:00:00 [facility] SARS-COV-2 COVID-19 2021-10-31 Completed [facility] of PFIZER VACCINE 00:00:00 [facility] SARS-COV-2 COVID-19 2021-10-31 Completed [facility] of PFIZER VACCINE 00:00:00 [facility] SARS-COV-2 COVID-19 2021-10-31 Completed [facility] of PFIZER VACCINE 00:00:00 [facility] SARS-COV-2 COVID-19 2021-10-31 Completed [facility] of PFIZER VACCINE 00:00:00 [facility] SARS-COV-2 COVID-19 2021-10-31 Completed [facility] of PFIZER VACCINE 00:00:00 [facility] SARS-COV-2 COVID-19 2021-10-31 Completed [facility] of PFIZER VACCINE 00:00:00 [facility] SARS-COV-2 COVID-19 2021-10-31 Completed [facility] of PFIZER VACCINE 00:00:00 [facility] SARS-COV-2 COVID-19 2021-10-31 Completed [facility] of PFIZER VACCINE 00:00:00 [facility] SARS-COV-2 COVID-19 2021-10-31 Completed [facility] of PFIZER VACCINE 00:00:00 [facility] SARS-COV-2 COVID-19 2021-10-31 Completed [facility] of PFIZER VACCINE 00:00:00 [facility] SARS-COV-2 COVID-19 2021-10-31 Completed [facility] of PFIZER VACCINE 00:00:00 [facility] SARS-COV-2 COVID-19 2021-10-31 Completed [facility] PFIZER VACCINE 00:00:00 [facility] SARS-COV-2 COVID-19 2020-11-20 Completed [facility] of PFIZER VACCINE 00:00:00 [facility] SARS-COV-2 COVID-19 2020-11-20 Completed [facility] of PFIZER VACCINE 00:00:00 [facility] SARS-COV-2 COVID-19 2020-11-20 Completed [facility] of PFIZER VACCINE 00:00:00 [facility] SARS-COV-2 COVID-19 2020-11-20 Completed [facility] of PFIZER VACCINE 00:00:00 [facility] SARS-COV-2 COVID-19 2020-11-20 Completed [facility] of PFIZER VACCINE 00:00:00 [facility] SARS-COV-2 COVID-19 2020-11-20 Completed [facility] of PFIZER VACCINE 00:00:00 [facility] SARS-COV-2 COVID-19 2020-11-20 Completed [facility] of PFIZER VACCINE 00:00:00 [facility] SARS-COV-2 COVID-19 2020-11-20 Completed [facility] of PFIZER VACCINE 00:00:00 [facility] SARS-COV-2 COVID-19 2020-11-20 Completed [facility] of PFIZER VACCINE 00:00:00 [facility] SARS-COV-2 COVID-19 2020-11-20 Completed [facility] of PFIZER VACCINE 00:00:00 [facility] SARS-COV-2 COVID-19 2020-11-20 Completed [facility] of PFIZER VACCINE 00:00:00 [facility] SARS-COV-2 COVID-19 2020-11-20 Completed [facility] of PFIZER VACCINE 00:00:00 [facility] SARS-COV-2 COVID-19 2020-11-20 Completed [facility] of PFIZER VACCINE 00:00:00 [facility] SARS-COV-2 COVID-19 2020-11-20 Completed [facility] of PFIZER VACCINE 00:00:00 [facility] SARS-COV-2 COVID-19 2020-11-20 Completed [facility] of PFIZER VACCINE 00:00:00 [facility] SARS-COV-2 COVID-19 2020-11-20 Completed [facility] of PFIZER VACCINE 00:00:00 [facility] SARS-COV-2 COVID-19 2020-11-20 Completed [facility] of PFIZER VACCINE 00:00:00 [facility] SARS-COV-2 COVID-19 2020-11-20 Completed [facility] of PFIZER VACCINE 00:00:00 [facility] SARS-COV-2 COVID-19 2020-11-20 Completed [facility] of PFIZER VACCINE 00:00:00 [facility] SARS-COV-2 COVID-19 2020-11-20 Completed [facility] of PFIZER VACCINE 00:00:00 [facility] SARS-COV-2 COVID-19 2020-11-20 Completed [facility] of PFIZER VACCINE 00:00:00 [facility] SARS-COV-2 COVID-19 2020-10-30 Completed [facility] of PFIZER VACCINE 00:00:00 [facility] SARS-COV-2 COVID-19 2020-10-30 Completed [facility] of PFIZER VACCINE 00:00:00 [facility] SARS-COV-2 COVID-19 2020-10-30 Completed [facility] of PFIZER VACCINE 00:00:00 [facility] SARS-COV-2 COVID-19 2020-10-30 Completed [facility] of PFIZER VACCINE 00:00:00 [facility] SARS-COV-2 COVID-19 2020-10-30 Completed [facility] of PFIZER VACCINE 00:00:00 [facility] SARS-COV-2 COVID-19 2020-10-30 Completed [facility] of PFIZER VACCINE 00:00:00 [facility] SARS-COV-2 COVID-19 2020-10-30 Completed [facility] of PFIZER VACCINE 00:00:00 [facility] SARS-COV-2 COVID-19 2020-10-30 Completed [facility] of PFIZER VACCINE 00:00:00 [facility] SARS-COV-2 COVID-19 2020-10-30 Completed [facility] of PFIZER VACCINE 00:00:00 [facility] SARS-COV-2 COVID-19 2020-10-30 Completed [facility] of PFIZER VACCINE 00:00:00 [facility] SARS-COV-2 COVID-19 2020-10-30 Completed [facility] of PFIZER VACCINE 00:00:00 [facility] SARS-COV-2 COVID-19 2020-10-30 Completed [facility] of PFIZER VACCINE 00:00:00 [facility] SARS-COV-2 COVID-19 2020-10-30 Completed [facility] of PFIZER VACCINE 00:00:00 [facility] SARS-COV-2 COVID-19 2020-10-30 Completed [facility] of PFIZER VACCINE 00:00:00 [facility] SARS-COV-2 COVID-19 2020-10-30 Completed [facility] of PFIZER VACCINE 00:00:00 [facility] SARS-COV-2 COVID-19 2020-10-30 Completed [facility] of PFIZER VACCINE 00:00:00 [facility] SARS-COV-2 COVID-19 2020-10-30 Completed [facility] of PFIZER VACCINE 00:00:00 [facility] SARS-COV-2 COVID-19 2020-10-30 Completed [facility] of PFIZER VACCINE 00:00:00 [facility] SARS-COV-2 COVID-19 2020-10-30 Completed [facility] of PFIZER VACCINE 00:00:00 [facility] SARS-COV-2 COVID-19 2020-10-30 Completed [facility] of PFIZER VACCINE 00:00:00 [facility] SARS-COV-2 COVID-19 2020-10-30 Completed [facility] of PFIZER VACCINE 00:00:00 [facility] Influenza High Dose 2020-06-02 Completed [facility] of Quad 00:00:00 [facility] Influenza High Dose 2020-06-02 Completed [facility] Quad 00:00:00 [facility] Influenza High Dose 2020-06-02 Completed [facility] Quad 00:00:00 [facility] Influenza High Dose 2020-06-02 Completed [facility] Quad 00:00:00 [facility] Influenza High Dose 2020-06-02 Completed [facility] Quad 00:00:00 [facility] Influenza High Dose 2020-06-02 Completed [facility] of Quad 00:00:00 [facility] Influenza High Dose 2020-06-02 Completed [facility] Quad 00:00:00 [facility] Influenza High Dose 2020-06-02 Completed [facility] Quad 00:00:00 [facility] Influenza High Dose 2020-06-02 Completed [facility] Quad 00:00:00 [facility] Influenza High Dose 2020-06-02 Completed [facility] Quad 00:00:00 [facility] Influenza High Dose 2020-06-02 Completed [facility] of Quad 00:00:00 [facility] Influenza High Dose 2020-06-02 Completed [facility] of Quad 00:00:00 [facility] Influenza High Dose 2020-06-02 Completed [facility] Quad 00:00:00 [facility] Influenza High Dose 2020-06-02 Completed [facility] of Quad 00:00:00 [facility] Influenza High Dose 2020-06-02 Completed [facility] of Quad 00:00:00 [facility] Influenza High Dose 2020-06-02 Completed [facility] of Quad 00:00:00 [facility] Influenza High Dose 2020-06-02 Completed [facility] Quad 00:00:00 [facility] Influenza High Dose 2020-06-02 Completed [facility] of Quad 00:00:00 [facility] Influenza High Dose 2020-06-02 Completed [facility] Quad 00:00:00 [facility] Influenza High Dose 2020-06-02 Completed [facility] Quad 00:00:00 [facility] Influenza High Dose 2020-06-02 Completed [facility] Quad 00:00:00 [facility] Influenza High Dose 2019-06-25 Completed [facility]ive [facility] of 00:00:00 [facility] Influenza High Dose 2019-06-25 Completed [facility] of 00:00:00 [facility] Influenza High Dose 2019-06-25 Completed [facility] of 00:00:00 [facility] Influenza High Dose 2019-06-25 Completed [facility] of 00:00:00 [facility] Influenza High Dose 2019-06-25 Completed [facility] of 00:00:00 [facility] Influenza High Dose 2019-06-25 Completed [facility] of 00:00:00 [facility] Influenza High Dose 2019-06-25 Completed [facility] of 00:00:00 [facility] Influenza High Dose 2019-06-25 Completed [facility] of 00:00:00 [facility] Influenza High Dose 2019-06-25 Completed [facility] of 00:00:00 [facility] Influenza High Dose 2019-06-25 Completed [facility] of 00:00:00 [facility] Influenza High Dose 2019-06-25 Completed [facility] of 00:00:00 [facility] Influenza High Dose 2019-06-25 Completed [facility] of 00:00:00 [facility] Influenza High Dose 2019-06-25 Completed [facility] of 00:00:00 [facility] Influenza High Dose 2019-06-25 Completed [facility] of 00:00:00 [facility] Influenza High Dose 2019-06-25 Completed [facility] of 00:00:00 [facility] Influenza High Dose 2019-06-25 Completed [facility] of 00:00:00 [facility] Influenza High Dose 2019-06-25 Completed [facility] of 00:00:00 [facility] Influenza High Dose 2019-06-25 Completed [facility] of 00:00:00 [facility] Influenza High Dose 2019-06-25 Completed [facility] of 00:00:00 [facility] Influenza High Dose 2019-06-25 Completed [facility] of 00:00:00 [facility] Influenza High Dose 2019-06-25 Completed [facility]ity of 00:00:00 [facility] Influenza High Dose 2018-06-25 Completed [facility]ity of 00:00:00 [facility] Influenza High Dose 2018-06-25 Completed [facility] of 00:00:00 [facility] Influenza High Dose 2018-06-25 Completed [facility] of 00:00:00 [facility] Influenza High Dose 2018-06-25 Completed [facility] of 00:00:00 [facility] Influenza High Dose 2018-06-25 Completed [facility]ity of 00:00:00 [facility] Influenza High Dose 2018-06-25 Completed [facility] of 00:00:00 [facility] Influenza High Dose 2018-06-25 Completed [facility]ity of 00:00:00 [facility] Influenza High Dose 2018-06-25 Completed [facility] of 00:00:00 [facility] Influenza High Dose 2018-06-25 Completed [facility] of 00:00:00 [facility] Influenza High Dose 2018-06-25 Completed [facility] of 00:00:00 [facility] Influenza High Dose 2018-06-25 Completed [facility]ive [facility]ity of 00:00:00 [facility] Influenza High Dose 2018-06-25 Completed [facility] of 00:00:00 [facility] Influenza High Dose 2018-06-25 Completed [facility] of 00:00:00 [facility] Influenza High Dose 2018-06-25 Completed [facility] of 00:00:00 [facility] Influenza High Dose 2018-06-25 Completed [facility] of 00:00:00 [facility] Influenza High Dose 2018-06-25 Completed [facility]ity of 00:00:00 [facility] Influenza High Dose 2018-06-25 Completed [facility] of 00:00:00 [facility] Influenza High Dose 2018-06-25 Completed [facility] of 00:00:00 [facility] Influenza High Dose 2018-06-25 Completed [facility] of 00:00:00 [facility] Influenza High Dose 2018-06-25 Completed [facility] of 00:00:00 [facility] Influenza High Dose 2018-06-25 Completed [facility]ity of 00:00:00 [facility] Influenza Virus 2017-06-17 Completed [facility] of Vaccine - Whole 00:00:00 [facility] Influenza Virus 2017-06-17 Completed [facility] of Vaccine - Whole 00:00:00 [facility] Influenza Virus 2017-06-17 Completed [facility] of Vaccine - Whole 00:00:00 [facility] Influenza Virus 2017-06-17 Completed [facility] of Vaccine - Whole 00:00:00 [facility] Influenza Virus 2017-06-17 Completed [facility] of Vaccine - Whole 00:00:00 [facility] Influenza Virus 2017-06-17 Completed [facility] of Vaccine - Whole 00:00:00 [facility] Influenza Virus 2017-06-17 Completed [facility] of Vaccine - Whole 00:00:00 [facility] Influenza Virus 2017-06-17 Completed [facility] of Vaccine - Whole 00:00:00 [facility] Influenza Virus 2017-06-17 Completed [facility] of Vaccine - Whole 00:00:00 [facility] Influenza Virus 2017-06-17 Completed [facility] of Vaccine - Whole 00:00:00 [facility] Influenza Virus 2017-06-17 Completed [facility] of Vaccine - Whole 00:00:00 [facility] Influenza Virus 2017-06-17 Completed [facility] of Vaccine - Whole 00:00:00 [facility] Influenza Virus 2017-06-17 Completed [facility] of Vaccine - Whole 00:00:00 [facility] Influenza Virus 2017-06-17 Completed [facility] of Vaccine - Whole 00:00:00 [facility] Influenza Virus 2017-06-17 Completed [facility] of Vaccine - Whole 00:00:00 [facility] Influenza Virus 2017-06-17 Completed [facility] of Vaccine - Whole 00:00:00 [facility] Influenza Virus 2017-06-17 Completed [facility] of Vaccine - Whole 00:00:00 [facility] Influenza Virus 2017-06-17 Completed [facility] of Vaccine - Whole 00:00:00 [facility] Influenza Virus 2017-06-17 Completed [facility] of Vaccine - Whole 00:00:00 [facility] Influenza Virus 2017-06-17 Completed [facility] of Vaccine - Whole 00:00:00 [facility] Influenza Virus 2017-06-17 Completed [facility] of Vaccine - Whole 00:00:00 [facility] Influenza High Dose 2016-08-16 Completed Unive [facility]ity of 00:00:00 [facility] Influenza High Dose 2016-08-16 Completed [facility]ive [facility]ity of 00:00:00 [facility] Influenza High Dose 2016-08-16 Completed Unive [facility]ity of 00:00:00 [facility] Influenza High Dose 2016-08-16 Completed [facility] of 00:00:00 [facility] Influenza High Dose 2016-08-16 Completed [facility] of 00:00:00 [facility] Influenza High Dose 2016-08-16 Completed [facility] of 00:00:00 [facility] Influenza High Dose 2016-08-16 Completed [facility] of 00:00:00 [facility] Influenza High Dose 2016-08-16 Completed [facility] of 00:00:00 [facility] Influenza High Dose 2016-08-16 Completed [facility] of 00:00:00 [facility] Influenza High Dose 2016-08-16 Completed [facility] of 00:00:00 [facility] Influenza High Dose 2016-08-16 Completed [facility] of 00:00:00 [facility] Influenza High Dose 2016-08-16 Completed [facility] of 00:00:00 [facility] Influenza High Dose 2016-08-16 Completed [facility] of 00:00:00 [facility] Influenza High Dose 2016-08-16 Completed [facility] of 00:00:00 [facility] Influenza High Dose 2016-08-16 Completed [facility] of 00:00:00 [facility] Influenza High Dose 2016-08-16 Completed [facility] of 00:00:00 [facility] Influenza High Dose 2016-08-16 Completed [facility] of 00:00:00 [facility] Influenza High Dose 2016-08-16 Completed [facility] of 00:00:00 [facility] Influenza High Dose 2016-08-16 Completed [facility] of 00:00:00 [facility] Influenza High Dose 2016-08-16 Completed [facility]ive [facility] of 00:00:00 [facility] Influenza High Dose 2016-08-16 Completed [facility] of 00:00:00 [facility] Influenza High Dose 2015-06-29 Completed [facility] of 00:00:00 [facility] Influenza High Dose 2015-06-29 Completed [facility] of 00:00:00 [facility] Influenza High Dose 2015-06-29 Completed [facility] of 00:00:00 [facility] Influenza High Dose 2015-06-29 Completed [facility] of 00:00:00 [facility] Influenza High Dose 2015-06-29 Completed [facility] of 00:00:00 [facility] Influenza High Dose 2015-06-29 Completed [facility] of 00:00:00 [facility] Influenza High Dose 2015-06-29 Completed [facility] of 00:00:00 [facility] Influenza High Dose 2015-06-29 Completed [facility] of 00:00:00 [facility] Influenza High Dose 2015-06-29 Completed [facility] of 00:00:00 [facility] Influenza High Dose 2015-06-29 Completed [facility] of 00:00:00 [facility] Influenza High Dose 2015-06-29 Completed [facility] of 00:00:00 [facility] Influenza High Dose 2015-06-29 Completed [facility] 00:00:00 [facility] Influenza High Dose 2015-06-29 Completed Unive rsity of 00:00:00 [facility] Influenza High Dose 2015-06-29 Completed Unive rsity of 00:00:00 [facility] Influenza High Dose 2015-06-29 Completed Unive rsity of 00:00:00 [facility] Influenza High Dose 2015-06-29 Completed Unive rsity of 00:00:00 [facility] Influenza High Dose 2015-06-29 Completed Unive rsity of 00:00:00 [facility] Influenza High Dose 2015-06-29 Completed Unive rsity of 00:00:00 [facility] Influenza High Dose 2015-06-29 Completed Unive rsity of 00:00:00 [facility] Influenza High Dose 2015-06-29 Completed Unive rsity of 00:00:00 [facility] Influenza High Dose 2015-06-29 Completed Unive rsity of 00:00:00 [facility] Vital Signs Vital Name Observation Time Observation Value Comments Source Systolic blood 2022-08-31 16:46:00 102 mm[Hg] Univer sity of pressure [facility] Diastolic blood 2022-08-31 16:46:00 62 mm[Hg] Unive rsity of pressure [facility] Heart rate 2022-08-31 16:46:00 84 /min Universi ty of [facility] Body height 2022-08-31 16:46:00 170.2 cm Universi ty of [facility] Body weight 2022-08-31 16:46:00 77.111 kg Universi ty of [facility] BMI 2022-08-31 16:46:00 26.63 kg/m2 Universi ty of [facility] Systolic blood 2022-08-01 20:52:00 159 mm[Hg] Univer sity of pressure [facility] Diastolic blood 2022-08-01 20:52:00 74 mm[Hg] Unive rsity of pressure [facility] Heart rate 2022-08-01 20:47:00 84 /min Universi ty of [facility] Body height 2022-08-01 20:47:00 170.2 cm Universi ty of [facility] Body weight 2022-08-01 20:47:00 80.287 kg Universi ty of [facility] BMI 2022-08-01 20:47:00 27.72 kg/m2 Universi ty of [facility] Oxygen saturation in 2022-08-01 20:47:00 97 /min University of Arterial blood by [facility] Pulse oximetry Branch Systolic blood 2022-07-24 21:00:00 137 mm[Hg] Univer sity of pressure [facility] Diastolic blood 2022-07-24 21:00:00 79 mm[Hg] Unive rsity of pressure [facility] Heart rate 2022-07-24 21:00:00 75 /min Universi ty of [facility] Body temperature 2022-07-24 21:00:00 36.72 Bella Univ ersity of [facility] Respiratory rate 2022-07-24 21:00:00 21 /min Univ ersity of [facility] Oxygen saturation in 2022-07-24 21:00:00 89 /min University of Arterial blood by [facility] Pulse oximetry Branch Body weight 2022-07-24 10:00:00 81.965 kg Universi ty of [facility] BMI 2022-07-24 10:00:00 28.30 kg/m2 Universi ty of [facility] Body height 2022-07-22 17:11:00 170.2 cm Universi ty of [facility] Systolic blood 2022-07-10 21:21:00 127 mm[Hg] Univer sity of pressure [facility] Diastolic blood 2022-07-10 21:21:00 65 mm[Hg] Unive rsity of pressure [facility] Heart rate 2022-07-10 21:21:00 80 /min Universi ty [facility] Body height 2022-07-10 21:21:00 170.2 cm [facility] Body weight 2022-07-10 21:21:00 88.905 kg [facility] BMI 2022-07-10 21:21:00 30.70 kg/m2 Universi ty of [facility] Heart rate 2022-07-08 21:11:00 75 /min Universi ty of [facility] Respiratory rate 2022-07-08 21:11:00 19 /min Univ ersity of [facility] Oxygen saturation in 2022-07-08 21:11:00 100 /min University of Arterial blood by [facility] tushar Pulse oximetry Branch Systolic blood 2022-07-08 21:00:00 150 mm[Hg] Univer sity of [facility] Diastolic blood 2022-07-08 21:00:00 75 mm[Hg] Unive rsity of [facility] Body height 2022-07-08 19:19:00 170.2 cm Universi ty [facility] Body weight 2022-07-08 19:19:00 79.379 kg Universi ty [facility] BMI 2022-07-08 19:19:00 27.41 kg/m2 Universi ty [facility] Systolic blood 2022-04-07 20:14:00 176 mm[Hg] Univer sity of [facility] Diastolic blood 2022-04-07 20:14:00 76 [facility]Hg[facility] 2022-04-07 20:13:00 81 /min Universi ty [facility] Body height 2022-04-07 20:13:00 170.2 cm Universi ty [facility] Body weight 2022-04-07 20:13:00 81.647 kg Universi ty [facility] BMI 2022-04-07 20:13:00 28.19 kg/m2 Universi ty [facility] Procedures Procedure Date / Time Performing Clinician Source Performed REFERRAL- 2022-08-08 06:01:00 Doctor Unassigned, No [facility] REQUEST/RESPONSE Name [facility] POCT GLUCOSE (AUTOMATED) 2022-07-24 22:10:00 Cris Rodriguez [facility] POCT GLUCOSE (AUTOMATED) 2022-07-24 17:11:00 Cris Rodriguez [facility] POCT GLUCOSE (AUTOMATED) 2022-07-24 13:19:00 Cris Rodriguez [facility] MAGNESIUM 2022-07-24 10:22:00 Cris Rodriguez o [facility] BASIC METABOLIC PANEL 2022-07-24 10:22:00 Cris Rodriguez [facility] (NA, K, CL, CO2, Medical Branch GLUCOSE, BUN, CREATININE, CA) N-TERMINAL PRO-BNP 2022-07-24 10:22:00 [facility] 2022-07-24 02:38:00 Cris Rodriguez [facility] POCT GLUCOSE (AUTOMATED) 2022-07-23 22:44:00 Cris Rodriguez [facility] POCT GLUCOSE (AUTOMATED) 2022-07-23 17:07:00 Cris Rodriguez [facility] XR CHEST 1 VW 2022-07-23 15:48:56 Cris Rodriguez [facility] POCT GLUCOSE (AUTOMATED) 2022-07-23 14:00:00 Cris Rodriguez [facility] MAGNESIUM 2022-07-23 10:10:00 Michael [facility] BASIC METABOLIC PANEL 2022-07-23 10:10:00 Michael [facility] (NA, K, CL, CO2, [facility] GLUCOSE, BUN, CREATININE, CA) N-TERMINAL PRO-BNP 2022-07-23 10:10:00 [facility]UCOSE (AUTOMATED) 2022-07-23 03:01:00 Cris Rodriguez [facility] POCT GLUCOSE (AUTOMATED) 2022-07-22 22:44:00 Cris Rodriguez [facility] URINALYSIS 2022-07-22 21:50:00 Michael [facility] POCT GLUCOSE (AUTOMATED) 2022-07-22 18:08:00 Cris Rodriguez [facility] POCT GLUCOSE (AUTOMATED) 2022-07-22 13:55:00 Cris Rodriguez [facility] MAGNESIUM 2022-07-22 11:32:00 Michael [facility] BASIC METABOLIC PANEL 2022-07-22 11:32:00 Michael [facility] (NA, K, CL, CO2, [facility] GLUCOSE, BUN, CREATININE, CA) N-TERMINAL PRO-BNP 2022-07-22 11:32:00 Michael [facility] POCT GLUCOSE (AUTOMATED) 2022-07-22 03:29:00 Cris Rodriguez [facility] POCT GLUCOSE (AUTOMATED) 2022-07-21 22:53:00 Cris Rodriguez [facility] POCT GLUCOSE (AUTOMATED) 2022-07-21 17:20:00 Cris Rodriguez [facility] TRANSTHORACIC ECHO (TTE) 2022-07-21 14:48:00 Bib Sanchez [facility] POCT GLUCOSE (AUTOMATED) 2022-07-21 14:17:00 Cris Rodriguez [facility] RETICULOCYTES AUTOMATED 2022-07-21 09:12:00 Bib Sanchez [facility] MAGNESIUM 2022-07-21 09:07:00 Daniel [facility] BASIC METABOLIC PANEL 2022-07-21 09:07:00 Bib Sanchez [facility] (NA, K, CL, CO2, Medical Branch GLUCOSE, BUN, CREATININE, CA) CBC WITH DIFF 2022-07-21 09:07:00 Bib Sanchez [facility] XR CHEST 1 VW 2022-07-20 23:54:26 [facility] IRON 2022-07-20 23:52:00 Bib Sanchez [facility] TOTAL IRON BINDING 2022-07-20 23:52:00 Bib Sanchez [facility] TROPONIN I 2022-07-20 23:52:00 [facility] COMP. METABOLIC PANEL 2022-07-20 23:52:[address] [facility] ([id number]) [facility] CBC WITH DIFF 2022-07-20 23:52:00 [facility] GLYCOSYLATED HEMOGLOBIN 2022-07-20 23:52:00 Bib Sanchez [facility] (A1C) [facility] N-TERMINAL PRO-BNP 2022-07-20 23:52:00 [facility] HB ECG ROUTINE & RHYTHM 2022-07-20 23:27:20 [facility] CONSENT/REFUSAL FOR 2022-07-20 23:07:09 Doctor Unassigned, No Un [facility] DIAGNOSIS AND TREATMENT Name Medical Branch FLU 2022-07-10 21:28:53 Alberto Carter [facility] VACC(),65+YR,0. Medical Branch 5 ML,IM,ADJUVANTED,QUAD(FL UAD) POCT HEMOGLOBIN A1C TEST 2022-07-10 00:00:[address] [facility] POCT GLUCOSE (AUTOMATED) 2022-07-08 21:12:00 [facility] POCT GLUCOSE (AUTOMATED) 2022-07-08 19:56:00 Gen [facility] TROPONIN I 2022-07-08 19:41:00 Gen [facility] HEPATIC FUNCTION PANEL 2022-07-08 19:41:00 Gen, [facility] ([id number]) (ALB,T.PRO,BILI [facility] T,BU/BC,ALT,AST,ALK PHOS) BASIC METABOLIC PANEL 2022-07-08 19:41:00 [facility] (NA, K, CL, CO2, [facility] GLUCOSE, BUN, CREATININE, CA) CBC WITH DIFF 2022-07-08 19:41:00 Gen, [facility] POCT GLUCOSE (AUTOMATED) 2022-07-08 19:24:00 Gen [facility] REFERRAL- 2022-06-27 05:01:00 Doctor Unassigned, No [facility] REQUEST/RESPONSE Name [facility] POCT HEMOGLOBIN A1C TEST 2022-04-07 00:00:[address] [facility] Encounters Start End Encounter Admission Attending Care Care Encounter Source Date/Time Date/Time Type Type Clinicians Facility Department ID 2021-07-03 Emergency [facility] [id number] Univers 19:00:34 ity [facility] 2021-07-01 Emergency [facility] [id number] Univers 06:36:47 [facility] 2022-11-29 2022-11-29 Outpatient Bolivar CARTER [facility] [id number] Univers 15:00:00 15:00:00 ALBERTO whalen [facility] 2022-10-10 2022-10-10 Outpatient Bolivar CARTER [facility] [id number] Univers 15:15:00 15:15:00 ALBERTO isaiah [facility] 2022-09-23 2022-09-23 Emergency X Srini VILLEGAS [facility] ERT [id number] Univers 12:52:00 12:53:00 ity [facility] 2022-09-23 2022-09-23 Emergency Srini Villegas [facility] 1.2.840.114 [id number] Univers 12:52:00 12:53:00 [place] [id number] i ty of [facility] [place].2.[place].2.[place] [phone] [address] 2022-09-22 2022-09-22 Telephone [facility] 1.2.840.114 [id number] Univers 00:00:00 00:00:00 Alberto HEALTH [id number] it y of [place] [id number] Julio as ANNA?BLEA [phone] [address] OFFICE [facility] 2022-09-14 2022-09-14 [facility] 1.2.840.114 [id number] Univers 00:00:00 00:00:00 Alberto HEALTH [id number] it y of [place] [id number] Julio as ANNA?BLEA [phone] [address] 2022-09-09 2022-09-09 [facility] 1.2.840.114 [id number] Univers 00:00:00 00:00:00 Alberto HEALTH [id number] it y of [place] [id number] Julio as ANNA?BLEA [phone] [address] 2022-09-06 2022-09-06 Telephone [facility] 1.2.840.114 [id number] [facility] 00:00:00 00:00:00 [facility] [id number] it y of [place] [id number] Julio as ANNA?BLEA [id number] [address] OFFICE [facility] 2022-08-31 2022-08-31 Office [facility] 1.2.840.114 [id number] Univers 11:00:00 11:30:00 Visit [facility] [id number] it y of [place] 4.2.7.2.686 Julio as ANNA?BLEA [id number] [address] OFFICE [facility] 2022-08-31 2022-08-31 Outpatient R [facility] [id number] [facility] 11:00:00 11:02:13 ALBERTO ity [facility] 2022-08-30 2022-08-30 Refill [facility] 1.2.840.114 [id number] Univers 00:00:00 00:00:00 [facility] [id number] it y of [place] 4.2.7.2.686 Julio as ANNA?BLEA [id number] [address] OFFICE [facility] 2022-08-29 2022-08-29 Telephone [facility] 1.2.840.114 [id number] [facility] 00:00:00 00:00:00 [facility] [id number] it y of [place] 4.2.7.2.686 Julio as ANNA?BLEA [id number] [address] OFFICE [facility] 2022-08-25 2022-08-25 Telephone [facility] 1.2.840.114 [id number] Univers 00:00:00 00:00:00 [facility] [id number] it y of [place] 4.2.7.2.686 Julio as ANNA?BLEA [phone] [address] MEDICAL OFFICE [facility] 2022-08-08 2022-08-08 Orders Doctor FLORES 1.2.840.114 [id number] Univers 00:00:00 00:00:00 Only Unassigned, JENNYFER 350.1.13.10 ity of [place] [facility] 4.2.7.2.686 Julio as [phone] [facility] [address] 2022-08-01 2022-08-01 [facility] 1.2.840.114 [id number] Univers 14:30:00 15:00:00 Visit [facility] [id number] it y of Jose Eduardo ARCE 4.2.7.2.686 Julio as ANNA?BLEA [id number] [address] MEDICAL OFFICE BUILDING 2022-08-01 2022-08-01 Outpatient R EMMA [facility] [id number] Univers 14:30:00 14:30:00 ALBERTO ity of [facility] 2022-07-25 2022-07-25 Transition DUSTY BarnhartVickie 1.2.840.114 [id number] Univers 00:00:00 00:00:00 of Vannessa MCGUIRE 350.1.13.10 it y of [place]2.7.2.[place] [id number] [facility] [address] 2022-07-20 2022-07-24 Inpatient X MICHAEL MATY PIERRE [id number] Univers 17:13:00 18:16:00 CRIS ity of [facility] 2022-07-20 2022-07-24 [facility] Darnell Christina [facility] 1.2.8 40.114 [id number] Univers 17:13:00 18:16:00 Encounter Cris Rodriguez [id number] ity of [facility] 4.2.7.2.[place] [phone] [facility] [address] 2022-07-10 2022-07-10 Outpatient Bolivar CARTER [facility] [id number] Univers 15:00:00 15:39:55 ALBERTO ity of [facility] 2022-07-10 2022-07-10 Office [facility] 1.2.840.114 [id number] Univers 15:00:00 15:39:55 Visit [facility] 350.1.13.10 it y of [place] 4.2.7.2.686 Julio as ANNA?BLEA [phone] [facility] [address] MEDICAL OFFICE [facility] 2022-07-08 2022-07-08 Emergency X CEFERINO RAMACHANDRAN [facility] ERT [id number] Univers 14:20:00 17:07:00 CEFERINO RAMACHANDRAN ity [facility] 2022-07-08 2022-07-08 Emergency [facility] 1.2.691.974 [id number] Univers 14:20:00 17:07:00 [facility] 350.1.13.10 ity of [place] 4.2.7.2.686 [place] [facility] [id number] [facility] [address] 2022-06-27 2022-06-27 Orders Doctor MARK 1.2.840.114 [id number] Univers 00:00:00 00:00:00 Only Unassigned, JENNYFER 350.1.13.10 ity of [facility] 4.2.7.2.686 Julio as [id number] [facility] [address] 2022-04-07 2022-04-07 Outpatient R [facility] [id number] Univers 15:00:00 15:28:47 [facility] 2022-04-07 2022-04-07 Office [facility] 1.2.840.114 [id number] Univers 15:00:00 15:28:47 Visit [facility] 350.1.13.10 it y of [facility] 4.2.7.2.686 Julio as ANNA?BLEA [id number] [address] MEDICAL OFFICE [facility] 2022-03-23 2022-03-23 Telephone [facility] 1.2.840.114 [id number] Univers 00:00:00 00:00:00 [facility] 350.1.13.10 it y of [place] [facility] 4.2.7.2.686 Julio as ANNA?BLEA [id number] [address] MEDICAL OFFICE [facility] 2022-03-09 2022-03-09 [facility] 1.2.840.114 [id number] Univers 00:00:00 00:00:00 [facility] 350.1.13.10 it y of [place] 4.2.7.2.686 Julio as ANNA?BLEA [id number] [address] OFFICE [facility] 2022-03-01 2022-03-01 Orders Doctor MARK 1.2.840.114 [id number] Univers 00:00:00 00:00:00 Only Unassigned, JENNYFER 350.1.13.10 ity of [place] [facility] 4.2.7.2.686 Julio as [id number] [address] 2022-02-28 2022-02-28 [facility] 1.2.840.114 [id number] Univers 00:00:00 00:00:00 [facility] 350.1.13.10 it y of [place] 4.2.7.2.686 Julio as ANNA?BLEA [id number] [address] OFFICE [facility] 2022-01-26 2022-01-26 Telephone [facility] 1.2.840.114 [id number] Univers 00:00:00 00:00:00 [facility] 350.1.13.10 it y of [place] 4.2.7.2.686 Julio as ANNA?BLEA [id number] [address] OFFICE [facility] 2022-01-06 2022-01-06 Office [facility] 1.2.840.114 [id number] Univers 16:30:00 16:45:00 Visit [facility] 350.1.13.10 it y of [place] 4.2.7.2.686 Julio as ANNA?BLEA [id number] [address] OFFICE [facility] 2022-01-06 2022-01-06 Outpatient Bolivar CARTER [facility] [id number] Univers 16:30:00 16:30:00 ALBERTO whalen [facility] 2022-01-06 2022-01-06 [facility]patient [facility] [id number] Univers 16:30:00 16:30:00 ALBERTO whalen [facility] 2022-01-04 2022-01-04 Telephone [facility] 1.2.840.114 [id number] Univers 00:00:00 00:00:00 Alberto [facility] 350.1.13.10 it y of [place] 4.2.7.2.686 Julio as NANA?BLEA [id number] [address] OFFICE [facility] 2022-01-03 2022-01-03 Telephone [facility] 1.2.840.114 [id number] Univers 00:00:00 00:00:00 [facility] 350.1.13.10 it y of [place] 4.2.7.2.686 Julio as ANNA?BLEA [id number] [address] OFFICE [facility] 2022-01-03 2022-01-03 Refill [facility] 1.2.840.114 [id number] Univers 00:00:00 00:00:00 [facility] 350.1.13.10 it y of [place] 4.2.7.2.686 Julio as ANNA?BLEA [id number] [address] OFFICE [facility] 2021-12-19 2021-12-19 Orders Doctor MARK 1.2.840.114 [id number] Univers 00:00:00 00:00:00 Only Unassigned, JENNYFER 350.1.13.10 ity of [place] [facility] 4.2.7.2.686 Julio as [id number] [address] 2021-12-08 2021-12-08 Office [facility] 1.2.840.114 [id number] Univers 10:30:00 11:00:00 Visit [facility] 350.1.13.10 it y of [place] 4.2.7.2.686 Julio as ANNA?BLEA [id number] [address] OFFICE [facility] 2021-12-08 2021-12-08 Outpatient R [facility] [id number] Univers 10:30:00 10:30:00 ALBERTO whalne [facility] 2021-12-08 2021-12-08 Outpatient R EMMA [facility] [id number] Univers 10:30:00 10:30:00 ALBERTO isaiah [facility] 2021-12-01 2021-12-01 [facility]phone [facility] 1.2.840.114 [id number] Univers 00:00:00 00:00:00 Alberto [facility] 350.1.13.10 it y of Jose Eduardo AR[place] 4.2.7.2.686 Julio as ANNA?BLEA [phone] Nv faisal [address] MEDICAL OFFICE BUILDING 2021-11-30 2021-11-30 Transition ODESSA Barnhart 1.2.840.114 [id number] Univers 00:00:00 00:00:00 of Vannessa MCGUIRE 350.1.13.10 it y of [place].2.[place] [id number] [facility] [address] 2021-11-26 2021-11-29 Inpatient X [facility] PIERRE [id number] Univers 11:02:00 18:45:00 SHARI whalen [facility] 2021-11-26 2021-11-29 [facility] Jaye Maxwell [facility] 1.2.84 0.114 [id number] Univers 11:02:00 18:45:00 Encounter ErichhoneyShari 350.1.13.10 ity of [place].7.2.[place] [id number] [facility] [address] 2021-11-26 2021-11-29 Inpatient X ERICH [facility] PIERRE [id number] Univers 11:02:00 18:45:00 [facility]-28 2021-11-28 [facility] [id number] Univers 16:00:00 16:00:00 ALBERTO [facility] 2021-11-23 2021-11-23 [facility]ill [facility] 1.2.840.114 [id number] Univers 00:00:00 00:00:00 [facility] 350.1.13.10 it y of Jose Eduardo AR[place] 4.2.7.2.686 Julio as PROFESSIO [id number] [address] OFFICE BUILDING ONE 2021-10-31 2021-10-31 Outpatient R EMMA [facility] [id number] Univers 16:30:00 16:55:37 ALBERTO jacksony [facility] 2021-10-25 2021-10-25 Orders Doctor MARK 1.2.840.114 [id number] Univers 00:00:00 00:00:00 Only Unassigned, JENNYFER 350.1.13.10 ity of [facility] 4.2.7.2.686 Julio as [phone] [address] 2021-10-08 2021-10-08 [facility] 1.2.840.114 [id number] Univers 00:00:00 00:00:00 [facility] 350.1.13.10 it y of [place] 4.2.7.2.686 Julio as PROFESSIO [id number] [address] OFFICE [facility] ONE 2021-10-05 2021-10-05 [facility] 1.2.840.114 [id number] Univers 00:00:00 00:00:00 [facility] 350.1.13.10 it y of [place] 4.2.7.2.686 Julio as ANNA?BLEA [phone] [address] OFFICE [facility] 2021-10-03 2021-10-03 [facility] 1.2.840.114 [id number] Univers 00:00:00 00:00:00 [facility] 350.1.13.10 it y of [place] 4.2.7.2.686 Julio as ANNA?BLEA [id number] [address] OFFICE [facility] 2021-09-30 2021-09-30 Outpatient R EMMA [facility] [id number] Univers 16:15:00 16:26:10 ALBERTO ity [facility] 2021-09-30 2021-09-30 Office [facility] [id number] Univers 16:15:00 16:26:10 Visit [facility] [id number] it y of [place] [id number] Julio as ANNA?BLEA [id number] Nv faisal [facility]IL[facility] [address] [place] [address] MEDICAL OFFICE BUILDING 2021-09-27 2021-09-27 [facility] [id number] Univers 16:30:00 16:30:00 ALBERTO [facility] 2021-08-29 2021-08-29 Office [facility] [facility] [place] 1.2.840.114 [id number] Univers 09:15:00 09:30:00 Visit [facility] 350.1.13.10 it y of [place] 4.2.7.2.686 Julio as ANNA?BLEA [phone] [address] MEDICAL OFFICE [facility] 2021-08-29 2021-08-29 Outpatient [facility] [id number] Univers 09:15:00 09:15:00 [facility] 2021-08-29 2021-08-29 Outpatient R [facility] [id number] Univers 09:15:00 09:15:00 [facility] 2021-08-01 2021-08-01 Orders Doctor MARK 1.2.840.114 [id number] Univers 00:00:00 00:00:00 Only Unassigned, JENNYFER 350.1.13.10 ity of [place] [facility] 4.2.7.2.686 Julio as [phone] [address] 2021-07-27 2021-07-27 Office [facility] [place] 1.2.840.114 [id number] Univers 08:14:13 08:29:13 Visit [facility] 350.1.13.10 it y of [place] 4.2.7.2.686 Julio as ANNA?BLEA [phone] Nv faisal [address] MEDICAL OFFICE [facility] 2021-07-27 2021-07-27 Outpatient [facility] [id number] Univers 08:15:00 08:15:00 [facility] 2021-07-20 2021-07-20 [facility] 1.2.840.114 [id number] Univers 00:00:00 00:00:00 [facility] 350.1.13.10 it y of Jose Eduardo ARCE 4.2.7.2.686 Julio as PROFESSIO [phone] [facility] 044 [facility] ONE 2021-05-25 2021-05-25 Orders Doctor MARK 1.2.840.114 [id number] Univers 00:00:00 00:00:00 Only Unassigned, JENNYFER 350.1.13.10 ity of [place] [facility] 4.2.7.2.686 Julio as [phone] [place] [address] [place] 2021-03-29 2021-03-29 Office [facility] 1.2.840.114 [id number] Univers 08:02:42 12:02:42 Visit MULTISPEC 350.1.13.10 ity of [facility] [place].2.[place] [phone] [facility] AND QUIANA [address] [place] [facility] 2021-03-29 2021-03-29 Outpatient R HAMILTON LION [facility] [id number] Univers 08:00:00 08:00:00 ity of [facility] 2021-03-29 2021-03-29 Outpatient R AYAD [place] [id number] Univers 08:00:00 08:00:00 ity of [facility] 2021-02-25 2021-02-25 Telephone [facility] [place] 1.2.840.114 [id number] Univers 00:00:00 00:00:00 [facility] 350.1.13.10 it y of [place]ce 4.2.7.2.686 Julio as Professio [phone] Nv dicne nal 044 [facility] One 2021-02-22 2021-02-22 Telephone [facility] 1.2.840.114 [id number] Univers 00:00:00 00:00:00 Alberto Arce 350.1.13.10 i ty of [place].2.[place] [phone] Nv dicne nal 846 [facility] 2021-02-22 2021-02-22 Refill Doctor [facility] 1.2.840.114 [id number] Univers 00:00:00 00:00:00 UnassTra mcgregor 350.1.13.10 ity of [place].2.[place] [phone] Nv dical nal 092 [facility] 2021-01-23 2021-01-23 Refill Jarrell [facility] 1.2.840.114 [id number] Univers 00:00:00 00:00:00 Hunter Arce 350.1.13.10 ity of [place].2.[place] [phone] Nv dicne nal 092 [facility] 2021-01-17 2021-01-17 Transition Eduardomacarena Dustyvickie 1.2.840.114 [id number] Univers 00:00:00 00:00:00 of Care Paula Mcguire 350.1.13.10 i ty of [place].2.7.2.[place] [phone] [facility] [address] 2021-01-13 2021-01-14 Emergency Eric Keith [facility] 1.2.840. 114 [id number] Univers 16:15:00 17:54:00 Bib Sanchez 350.1.13.10 ity of [place].2.7.2.686 [place] [phone] [facility] 081 [address] 2021-01-13 2021-01-13 Outpatient Bolivar FORD [facility] [id number] Univers 16:00:00 16:14:00 RIYA koby [facility] 2021-01-13 2021-01-13 Outpatient Bolivar FORD [facility] [id number] Univers 16:00:00 16:00:00 RIYA whalen [facility] 2021-01-13 2021-01-13 Telephone Jarrell [facility] 1.2.840.114 [id number] Univers 00:00:00 00:00:00 Hunter Arce 350.1.13.10 ity of [place].2.[place] [phone] Nv dical nal 092 [facility] 2021-01-11 2021-01-11 Outpatient [facility] [id number] Univers 11:00:00 11:00:00 ALBERTO ity of [facility] 2021-01-11 2021-01-11 Telephone [facility] 1.2.840.114 [id number] Univers 00:00:00 00:00:00 [facility] 350.1.13.10 it y of [place] 4.2.7.2.686 Julio as Professio [phone] [facility] [address] [place] Office [facility] One 2021-01-10 2021-01-10 Telephone [facility] 1.2.840.114 [id number] Univers 00:00:00 00:00:00 [facility] 350.1.13.10 it y of [place] 4.2.7.2.686 Julio as Professio [phone] [facility] [address] [place] Office [facility] One 2021-01-07 2021-01-07 [facility] 1.2.840.114 [id number] Univers 00:00:00 00:00:00 [facility] 350.1.13.10 it y of [place] 4.2.7.2.686 Julio as Professio [phone] [address] 2020-12-22 2020-12-22 [facility] 1.2.840.114 [id number] Univers 00:00:00 00:00:00 [facility] 350.1.13.10 it y of [place] 4.2.7.2.686 Julio as Professio [phone] [address] 2020-12-22 2020-12-22 Orders Doctor MARK 1.2.840.114 [id number] Univers 00:00:00 00:00:00 Only Unassigned, JENNYFER 350.1.13.10 ity of [place] [facility] 4.2.7.2.686 Julio as [phone] [address] 2020-12-21 2020-12-21 Office Jarrell [facility] 1.2.840.114 [id number] Univers 13:03:13 14:20:46 Visit Hunter Darin [place] 350.1.13.10 ity of [place]2.7.2.[place] [phone] Nv dical nal 092 [facility] 2020-12-21 2020-12-21 Outpatient Bolivar JARRELLHUNTER Fiore [facility] [id number] Univers 13:00:00 13:00:00 [facility] 2020-12-15 2020-12-15 Orders Doctor MARK 1.2.840.114 [id number] Univers 00:00:00 00:00:00 Only Unassigned, JENNYFER 350.1.13.10 ity of [facility] 4.2.7.2.686 Julio as [phone] [address] 2020-12-14 2020-12-14 Outpatient Bolivar MCKENZIEMacarena HUNTER [facility] [id number] Univers 13:00:00 13:00:00 [facility] 2020-12-14 2020-12-14 Office [facility] 1.2.840.114 [id number] Univers 10:46:59 11:01:59 Visit [facility] 350.1.13.10 it y of [place] Eduardo Arce 4.2.7.2.686 Julio as Professio [phone] [address] One 2020-12-14 2020-12-14 Outpatient R EMMA [facility] [id number] Univers 11:00:00 11:00:00 ALBERTO [facility] 2020-11-29 2020-11-29 Telephone [facility] 1.2.840.114 [id number] Univers 00:00:00 00:00:00 [facility] 350.1.13.10 it y of [place] Edu[place]ce 4.2.7.2.686 Julio as Professio [phone] [address] Office [facility] One 2020-11-22 2020-11-22 Telephone [facility] 1.2.840.114 [id number] Univers 00:00:00 00:00:00 [facility] 350.1.13.10 it y of [place] 4.2.7.2.686 Julio as Professio [phone] [facility] 044 [facility] One 2020-11-22 2020-11-22 Telephone [facility] 1.2.840.114 [id number] Univers 00:00:00 00:00:00 Alberto Arce 350.1.13.10 i ty of [place]2.7.2.[place] [phone] [facility] 231 [facility] 2020-11-20 2020-11-20 Outpatient [facility] [id number] Univers 14:40:00 14:40:00 [facility] 2020-11-19 2020-11-19 Telephone [facility] 1.2.840.114 [id number] [facility] 00:00:00 00:00:00 [facility] 350.1.13.10 it y of [place] 4.2.7.2.686 Julio as Professio [phone] [address] One 2020-11-17 2020-11-17 [facility] 1.2.840.114 [id number] Univers 00:00:00 00:00:00 [facility] 350.1.13.10 it y of [place] 4.2.7.2.686 Julio as Professio [phone] [address] One 2020-11-15 2020-11-15 Office [facility] 1.2.840.114 [id number] Univers 10:53:18 11:08:18 Visit [facility] 350.1.13.10 it y of [place] 4.2.7.2.686 Julio as Professio [phone] [address] One 2020-11-15 2020-11-15 [facility]patient [facility] [id number] Univers 11:00:00 11:00:00 ALBERTO [facility] 2020-11-11 2020-11-11 Transition Odessa Johns 1.2.840.114 [id number] Univers 00:00:00 00:00:00 of Care Tanesha Craveny 350.1.13.10 it y of [place]2.7.2.686 [place] [phone] [facility] [address] 2020-11-10 2020-11-10 Telephone RAFAELA Ford 1.2.840.114 [id number] Univers 00:00:00 00:00:00 Riya Y HEALTH 350.1.13.10 i ty of [facility] 4.2.7.2.686 [place] a [phone] [facility] [address] 2020-11-10 2020-11-10 Telephone Libbycelestejacey [facility] 1.2.840.114 [id number] Univers 00:00:00 00:00:00 [facility] 350.1.13.10 it y of [place] Eduardo Arce 4.2.7.2.686 Julio as Gioio [phone] [address] Office Building One 2020-11-07 2020-11-09 [facility] Srini Villegas 1.2.840.1 14 [id number] Univers 16:40:00 18:09:00 Encounter Rita Barnes 350.1.13.10 ity of Irina Gaxiola [facility] 4.2.7.2.686 [place] [phone] [facility] 098 [address] 2020-11-07 2020-11-09 Inpatient X IRINA GAXIOLA [facility] SHAYNA [id number] Univers 16:40:00 18:09:00 ity of [facility] 2020-10-30 2020-10-30 Outpatient R ANGELIKA [facility] [id number] Univers 14:40:00 14:40:00 MICHELE ity of [facility] 2020-10-22 2020-10-22 Orders Doctor FLORES 1.2.840.114 [id number] Univers 00:00:00 00:00:00 Only Unassigned, JENNYFER 350.1.13.10 ity of [place] [facility] 4.2.7.2.686 Julio as [phone] [facility] [address]9 [address] 2020-10-13 2020-10-13 Telephone [facility] 1.2.840.114 [id number] [facility] 00:00:00 00:00:00 [facility] 350.1.13.10 it y of [place] 4.2.7.2.686 Julio as Professio [phone] Nv dical nal 044 [facility] 2020-10-13 2020-10-13 [facility] 1.2.840.114 [id number] 00:00:00 00:00:00 [facility] 350.1.13.10 [place] 4.2.7.2.686 Professio [phone] nal [address] [place] [address] One 2020-10-12 2020-10-12 Orders Doctor MARK 1.2.840.114 [id number] Univers 00:00:00 00:00:00 Only Unassigned, JENNYFER 350.1.13.10 ity of [place] [facility] 4.2.7.2.686 Julio as [phone] [address] 2020-09-20 2020-09-20 Orders Doctor MARK 1.2.840.114 [id number] Univers 00:00:00 00:00:00 Only Unassigned, JENNYFER 350.1.13.10 ity of [place] [facility] 4.2.7.2.686 Julio as [phone] [address] 2020-09-17 2020-09-17 [facility] 1.2.840.114 [id number] [facility] 00:00:00 00:00:00 [facility] 350.1.13.10 it y of [place] 4.2.7.2.686 Julio as Professio [phone] Nv dical nal 044 [facility] One 2020-09-09 2020-09-09 Systems Coordinator Chrissy, Heide Lab Main [facility] 1.2.8 40.114 [id number] [facility] 10:23:13 10:38:13 Visit Jacob [place] 350.1.13.10 ity of [place]2.7.2.[place] [phone] Me dical nal 353 [facility] 2020-09-09 2020-09-09 Outpatient [facility] [id number] Univers 10:15:00 10:15:00 MANAF ity of [facility] 2020-09-09 2020-09-09 Orders Doctor MARK 1.2.840.114 [id number] Univers 00:00:00 00:00:00 Only Unassigned, JENNYFER 350.1.13.10 ity of [place] [facility] 4.2.7.2.686 Julio as [phone] [address] 2020-08-31 2020-08-31 Telephone [facility] 1.2.840.114 [id number] Univers 00:00:00 00:00:00 [facility] 350.1.13.10 it y of [place] 4.2.7.2.686 Julio as Professio [phone] [address] Office [facility] 2020-08-20 2020-08-20 Telephone [facility] 1.2.840.114 [id number] Univers 00:00:00 00:00:00 [facility] 350.1.13.10 it y of [place] 4.2.7.2.686 Julio as Professio [phone] [address] Office [facility] 2020-08-20 2020-08-20 Orders Doctor MARK 1.2.840.114 [id number] Univers 00:00:00 00:00:00 Only Unassigned, JENNYFER 350.1.13.10 ity of [place] [facility] 4.2.7.2.686 Julio as [phone] [address] 2020-08-18 2020-08-18 Telephone [facility] 1.2.840.114 [id number] Univers 00:00:00 00:00:00 [facility] 350.1.13.10 it y of [place] 4.2.7.2.686 Julio as Professio [phone] [address] Office [facility] 2020-08-13 2020-08-13 Telephone [facility] 1.2.840.114 [id number] Univers 00:00:00 00:00:00 [facility] 350.1.13.10 it y of [place] 4.2.7.2.686 Julio as Professio [phone] Nv dic[address] Office [facility] One 2020-07-13 2020-07-13 Office [facility] 1.2.840.114 [id number] Univers 10:26:57 10:46:45 Visit [facility] 350.1.13.10 it y of [place] 4.2.7.2.686 Julio as Professio [phone] [address] Office [facility] 2020-07-13 2020-07-13 Outpatient R [facility] [id number] [facility] 10:45:00 10:45:00 ALBERTO ity of [facility] 2020-07-08 2020-07-08 [facility] 1.2.840.114 [id number] Univers 00:00:00 00:00:00 [facility] 350.1.13.10 it y of [place] 4.2.7.2.686 Julio as Professio [phone] [address] Office [facility] One 2020-06-30 2020-06-30 [facility] 1.2.840.114 [id number] Univers 00:00:00 00:00:00 [facility] 350.1.13.10 it y of [place] 4.2.7.2.686 Julio as Professio [phone] [address] Office [facility] 2020-05-28 2020-05-28 Orders Doctor MARK 1.2.840.114 [id number] Univers 00:00:00 00:00:00 Only Unassigned, JENNYFER 350.1.13.10 ity of [place] [facility] 4.2.7.2.686 Julio as [phone] [address] 2020-05-25 2020-05-25 [facility] 1.2.840.114 [id number] Univers 00:00:00 00:00:00 [facility] 350.1.13.10 it y of [place] 4.2.7.2.686 Julio as Professio [phone] [address] Office [facility] One 2020-05-20 2020-05-20 Orders Doctor MARK 1.2.840.114 [id number] Univers 00:00:00 00:00:00 Only Unassigned, JENNYFER 350.1.13.10 ity of [place] [facility] 4.2.7.2.686 Julio as [phone] [address] 2020-05-13 2020-05-13 Outpatient R STANLEY [facility] [id number] Univers 09:30:00 09:30:00 SENDIL ity of [facility] 2020-05-12 2020-05-12 Telephone DakotaFlakitaLillie 1.2.840.114 [id number] Univers 00:00:00 00:00:00 Afaq [place] 350.1.13.10 it y of Hospital 4.2.7.2.686 Julio as [phone] [address] 2020-05-08 2020-05-08 [facility] 1.2.840.114 [id number] Univers 00:00:00 00:00:00 [facility] 350.1.13.10 [facility] 4.2.7.2.686 Julio as Professio [phone] [address] One 2020-05-06 2020-05-06 Telephone HernanirvingLillie melchor 1.2.840.114 [id number] Univers 00:00:00 00:00:00 Afaq [place] 350.1.13.10 it y of Hospital 4.2.7.2.686 Julio as [phone] [address] 2020-05-06 2020-05-06 [facility] 1.2.840.114 [id number] Univers 00:00:00 00:00:00 [facility] 350.1.13.10 it y of [place] 4.2.7.2.686 Julio as Professio [phone] [address] Office [facility] One 2020-05-05 2020-05-05 Telephone [place] [facility] 1.2.840.114 [id number] Univers 00:00:00 00:00:00 Afaq [facility] 350.1.13.10 it y of [place] 4.2.7.2.686 [place]iffany Morris [phone] [facility] [address] Office Building 2020-04-15 2020-04-15 [facility]ill [facility] 1.2.840.114 [id number] Univers 00:00:00 00:00:00 [facility] 350.1.13.10 it y of [place] 4.2.7.2.686 Julio as Professio [phone] Nv dical nal [address] [place] Office Building [facility] 2020-04-14 2020-04-14 Refill [facility] 1.2.840.114 [id number] Univers 00:00:00 00:00:00 [facility] 350.1.13.10 it y of [place] 4.2.7.2.686 Julio as Professio [phone] Nv dical nal 044 [facility] 2020-04-08 2020-04-08 Systems Coordinator Heide Lowe [facility] Main [facility] 1.2.8 40.114 [id number] Univers 12:43:43 13:02:03 Visit Todd Redd 350.1.13.10 ity of [place] 4.2.7.2.686 [place] Professio [phone] Nv dical nal 353 [facility] 2020-04-08 2020-04-08 Outpatient R TODD REDD [facility] [id number] Univers 12:00:00 12:00:00 ity of [facility] 2020-04-01 2020-04-01 Orders Doctor MARK 1.2.840.114 [id number] Univers 00:00:00 00:00:00 Only Unassigned, JENNYFER 350.1.13.10 ity of [place] [facility] 4.2.7.2.686 Julio as [phone] [facility] [address] 2020-03-29 2020-03-29 Refill Lillie Cadet 1.2.840.114 [id number] Univers 00:00:00 00:00:00 [place] Jennyfer 350.1.13.10 it y of Hospital 4.2.7.2.686 Julio as [phone] [address] 2020-03-29 2020-03-29 Lillie Murcia 1.2.840.114 [id number] Univers 00:00:00 00:00:00 [place] 350.1.13.10 it y of Hospital 4.2.7.2.686 Julio as [phone] [address] 2020-03-29 2020-03-29 Lillie Murcia 1.2.840.114 [id number] Univers 00:00:00 00:00:00 [place] 350.1.13.10 it y of Hospital 4.2.7.2.686 Julio as [phone] [address] 2020-03-16 2020-03-24 [facility] Eric Keith 1.2.840.1 [id number] Univers 10:25:59 17:45:00 [facility] Kemal Lombardi 350.1.13.10 ity of Hospital 4.2.7.2.686 Julio as [phone] [address] 2020-03-24 2020-03-24 Lillie Murcia 1.2.840.114 [id number] Univers 00:00:00 00:00:00 [place] 350.1.13.10 it y of Hospital 4.2.7.2.686 Julio as [phone] [address] 2020-03-24 2020-03-24 Lillie Murcia 1.2.840.114 [id number] Univers 00:00:00 00:00:00 [place] 350.1.13.10 it y of Hospital 4.2.7.2.686 Julio as [phone] [address] 2020-03-24 2020-03-24 Lillie Murcia 1.2.840.114 [id number] Univers 00:00:00 00:00:00 [place] Jennyfer 350.1.13.10 it y of Hospital 4.2.7.2.686 Julio as [phone] [address] 2020-03-24 2020-03-24 Lillie Murcia 1.2.840.114 [id number] Univers 00:00:00 00:00:00 Nolberto Burger 350.1.13.10 it y of Hospital 4.2.7.2.686 Julio as [phone] [address] 2020-03-20 2020-03-20 [facility] 1.2.840.114 [id number] Univers 00:00:00 00:00:00 [facility] 350.1.13.10 it y of [place] 4.2.7.2.686 Julio as Professio [phone] [address] Office [facility] One 2020-03-16 2020-03-16 Outpatient Bolivar KIRAN [facility] [id number] Univers 10:40:00 10:40:00 ALLAN whalen [facility] 2020-03-16 2020-03-16 Urgent Pob1, Acute Care Clinic [facility] 1. 2.840.114 [id number] Univers 09:44:39 10:23:19 [facility] 350.1.13.10 ity of [place] 4.2.7.2.686 Julio as Professio [phone] [address] One 2020-02-27 2020-02-27 [facility] 1.2.840.114 [id number] Univers 00:00:00 00:00:00 [facility] 350.1.13.10 it y of [place] 4.2.7.2.686 Julio as Professio [phone] [address] One 2020-02-20 2020-02-20 [facility] 1.2.840.114 [id number] Univers 00:00:00 00:00:00 [facility] 350.1.13.10 it y of [place] 4.2.7.2.686 Julio as Professio [phone] [address] One 2020-01-17 2020-01-17 [facility] 1.2.840.114 [id number] Univers 00:00:00 00:00:00 [facility] 350.1.13.10 it y of Jose Eduardo Arce 4.2.7.2.686 Julio as Professio [phone] Nv dical [facility] [address] Office [facility] 2019-12-24 2019-12-24 Outpatient R EMMA [facility] [id number] Univers 10:00:00 10:00:00 ALBERTO ity of [facility] 2019-12-24 2019-12-24 Telemedici [facility] 1.2.840.114 [id number] Univers 08:19:36 08:34:36 ne Visit Alberto Arce 350.1.13.10 ity of [place].2.7.2.[place] Profess[place] [phone] [facility] 044 [facility] 2019-11-27 2019-11-27 [facility] 1.2.840.114 [id number] Univers 00:00:00 00:00:00 [facility] 350.1.13.10 it y of [place] Edu[place] Arce 4.2.7.2.686 Julio as Professio [phone] [facility] [address] [place] Office [facility] 2019-11-19 2019-11-19 Systems Coordinator Chrissy, Adc Lab Main [facility] 1.2.8 40.114 [id number] Univers 10:44:59 10:59:59 Visit Jacob [place] Billy Arce 350.1.13.10 ity of [place].2.[place] [phone] [facility] 353 [facility] 2019-11-19 2019-11-19 Outpatient R SUSANA [facility] [id number] Univers 10:45:00 10:45:00 MANAF ity [facility] 2019-11-19 2019-11-19 Orders Doctor FLORES 1.2.840.114 [id number] Univers 00:00:00 00:00:00 Only Unassigned, JENNYFER 350.1.13.10 ity of [place] [facility] 4.2.7.2.686 Julio as [phone] [address] 2019-11-06 2019-11-06 Refill [facility] 1.2.840.114 [id number] Univers 00:00:00 00:00:00 [facility] 350.1.13.10 it y of [place] 4.2.7.2.686 Julio as Professio [phone] [address] One 2019-10-15 2019-10-15 Orders Doctor FLORES 1.2.840.114 [id number] Univers 00:00:00 00:00:00 Only Unassigned, JENNYFER [id number] ity of [place] [facility] [id number] Julio as [phone] [address] 2019-10-09 2019-10-09 [facility] 1.2.840.114 [id number] Univers 00:00:00 00:00:00 [facility] [id number] it y of [place] 4.2.7.2.686 Julio as Professio [phone] [address] One 2019-05-07 2019-05-07 Orders Doctor FLORES 1.2.840.114 [id number] Univers 00:00:00 00:00:00 Only Unassigned, JENNYFER [id number] ity of [place] [facility] 4.2.7.2.686 Julio as [phone] [address] 2019-05-03 2019-05-03 [facility] 1.2.840.114 [id number] Univers 00:00:00 00:00:00 [facility] [id number] it y of [place] 4.2.7.2.686 Julio as Professio [phone] [address] One 2019-04-02 2019-04-02 Systems Coordinator 1, Ad[facility] 1.2.840.114 [id number] Univers 11:13:32 11:28:32 Visit [facility] [place] 350.1.13.10 ity [place] 4[place]7.2.[place] [phone] [facility] [address] 2019-04-02 2019-04-02 Orders Doctor FLORES 1.2.840.114 [id number] Univers 00:00:00 00:00:00 Only Unassigned, JENNYFER 350.1.13.10 ity of [place] [facility] [id number] [facility] as [id number] [address] Results Test Description Test Time Test Comments Results Result Comments Source POCT GLUCOSE (AUTOMATED) 2022-07-24 22:50:08 Test Item Value Reference Range Interpretation Comme nts POCT GLU (test code = 4776502399) 148 mg/dL 70-110 H Lab Interpretation (test code = 21854-0) Abnormal [facility]2022-07-24 17:47:54 Test Item Value Reference Range Interpretation Comments POCT GLU (test code = 5725427418) 176 mg/dL 70-110 H Lab Interpretation (test code = Abnormal 67837-1) [facility] GLUCOSE (AUTOMATED)2022-07-24 14:19:28 Test Item Value Reference Range Interpretation Comments POCT GLU (test code = 1965815579) 217 mg/dL 70-110 H Lab Interpretation (test code = Abnormal 39804-8) [facility] GLUCOSE (AUTOMATED)2022-07-24 13:41:42 Test Item Value Reference Range Interpretation Comments POCT GLU (test code = 1153484121) 247 mg/dL 70-110 H Lab Interpretation (test code = Abnormal 57164-4) [facility] GLUCOSE (AUTOMATED)2022-07-23 22:50:57 Test Item Value Reference Range Interpretation Comments POCT GLU (test code = 1601157708) 290 mg/dL 70-110 H Lab Interpretation (test code = Abnormal 16891-2) [facility] GLUCOSE (AUTOMATED)2022-07-23 17:39:35 Test Item Value Reference Range Interpretation Comments POCT GLU (test code = 3338519389) 225 mg/dL 70-110 H Lab Interpretation (test code = Abnormal 88451-1) [facility] GLUCOSE (AUTOMATED)2022-07-23 14:10:33 Test Item Value Reference Range Interpretation Comments POCT GLU (test code = 8145378178) 204 mg/dL 70-110 H Lab Interpretation (test code = Abnormal 69711-4) [facility] GLUCOSE (AUTOMATED)2022-07-23 03:03:12 Test Item Value Reference Range Interpretation Comments POCT GLU (test code = 6586249325) 214 mg/dL 70-110 H Lab Interpretation (test code = Abnormal 10802-4) [facility] GLUCOSE (AUTOMATED)2022-07-22 22:50:58 Test Item Value Reference Range Interpretation Comments POCT GLU (test code = 4683744838) 294 mg/dL 70-110 H Lab Interpretation (test code = Abnormal 65448-7) [facility] GLUCOSE (AUTOMATED)2022-07-22 18:32:15 Test Item Value Reference Range Interpretation Comments POCT GLU (test code = 1315501940) 228 mg/dL 70-110 H Lab Interpretation (test code = Abnormal 08079-6) [facility] GLUCOSE (AUTOMATED)2022-07-22 18:32:04 Test Item Value Reference Range Interpretation Comments POCT GLU (test code = 6822523196) 223 mg/dL 70-110 H Lab Interpretation (test code = Abnormal 47031-5) [facility] GLUCOSE (AUTOMATED)2022-07-22 13:59:41 Test Item Value Reference Range Interpretation Comments POCT GLU (test code = 2021843108) 175 mg/dL 70-110 H Lab Interpretation (test code = Abnormal 63238-1) [facility] GLUCOSE (AUTOMATED)2022-07-21 22:56:50 Test Item Value Reference Range Interpretation Comments POCT GLU (test code = 6104069846) 181 mg/dL 70-110 H Lab Interpretation (test code = Abnormal 48228-5) [facility]2022-07-21 22:21:18 Test Item Value Reference Range Interpretation Comments Height (test code = in 8585606971) Weight (test code = lbs 6359377092) Systolic BP (test code = mmHg 0594364067) Diastolic BP (test code mmHg = 9170375700) Heart Rate (test code = bpm 0757972148) BSA (test code = 2.02 m2 1389497522) Ao root diam (test code 2.90 cm = 1162033971) Aortic root (test code = 2.9 cm 8437942651) Ao root annulus (test 2.9 cm code = 8531776693) LVOT diameter (test code 2.04 cm = 5494591455) LVOT area (test code = 3.30 cm2 7355643573) LVIDD (test code = 4.70 cm 2294177740) Left Ventricular End 102.5 mL Diastolic Volume by Teichholz Method (test code = 2466161) IVS (test code = 1.13 cm 4987955641) Interventricular Septum 1.13 cm Diastolic Thickness by 2D (test code = 1864882) LVPWD (test code = 1.13 cm 4592528065) PW (test code = 1.13 cm 0.6-1.3 7757958568) EF(Teich) (test code = 63.80 % 6958532900) LVIDS (test code = 3.10 cm 5583075156) Left Ventricular End 37.1 mL Systolic Volume by Teichholz Method (test code = 0440507) FS (test code = 35 % 5567071150) EF - 2D (test code = 63.80 % 89021165) LA size (test code = 3.5 cm 3067238226) TR Peak Mayra (test code = 380.6 cm/s 1477055536) Triscuspid Valve mmHg Regurgitation Peak Gradient (test code = 4926461381) LAV(MOD-sp4) (test code 85.70 mL = 9550921249) E wave decelartion time 0.15 s (test code = 6488852116) MV Peak E Mayra (test code 143.2 cm/s = 9479759556) MV stenosis pressure 1/2 45.9 ms time (test code = 7733021078) MV Peak A Mayra (test code 139.6 cm/s = 0382078778) E/A ratio (test code = ratio 1970963900) MR max PG (test code = 129.10 mm[Hg] 8288061878) MR max mayra (test code = 568.10 cm/s 8446793257) Mr max mayra (test code = 568.1 m/s 2193175063) MV Prop V (test code = 42.60 cm/s 2341334707) MV E/e' septal (test 10.6 cm/s code = 4997556610) Tapse (test code = 1.26 cm 0197450484) LVOT stroke volume (test 63.70 cm3 code = 6079124988) LVOT peak mayra (test code 96.2 cm/s = 8597818949) LVOT mn grad (test code mmHg = 3877009299) AV LVOT peak gradient mmHg (test code = 2253305024) LVOT peak VTI (test code 19.5 cm = 0264957340) LV V1 mean (test code = 60.90 cm/s 8239062462) Aortic valve mean 156.1 cm/s velocity (test code = 7488671207) Ao peak mayra (test code = 217.6 cm/s 2979464840) Ao VTI (test code = 45.0 cm 0942137945) AV area by cont VTI 1.4 cm2 (test code = 9892374585) AV area peak mayra (test 1.5 cm2 code = 4679034068) Ao max PG (test code = 18.90 mm[Hg] 8833792335) AV peak gradient (test mmHg code = 0264314231) AV valve area (test code 1.42 cm2 = 8022177843) AV mean gradient (test mmHg code = 4153629609) Radiology Study observation (narrative) (test code = 85868-9) JESSICA (test code = JESSICA) Table formatting from the original result was not included. ?Left?Ventricle: Left ventricle is normal in size and function. Increased wall thickness. ?Mitral?Valve: Mitral valve is normal in structure and function. Mild mitral annular calcification. ?Tricuspid?Valve: Tricuspid valve is normal size and function. ?Aortic?Valve: Aortic valve is normal in structure and function. Mildly calcified cusps. ?Pulmonic?Valve: Pulmonic valve is normal in structure and function. VitalsHeight Weight BSA (Calculated - sq m) BP Pulse 5' 7" (1.702 m) 187 lb (84.8 kg) 2 sq meters 125/65 64 Left VentricleLeft ventricle is normal in size and function. Increased wall thickness. Septal motion is normal. . No regional wall motion abnormalities. Normal systolic function with a visually estimated EF of 60 - 65%. There is pseudonormal diastolic dysfunction.Right VentricleRight ventricle is mildly dilated. Normal wall thickness. Normal systolic function.Left AtriumLeft atrium is moderately dilated.Right AtriumRight atrium is moderately dilated.IVC/SVCIVC diameter is less than or equal to 21 mm and decreases less than 50% during inspiration; therefore the estimated right atrial pressure is intermediate (~8 mmHg). IVC normal in size and respiratory variation.Mitral ValveMitral valve is normal in structure and function. Mild mitral annular calcification. Moderate transvalvular regurgitation. No stenosis.Tricuspid ValveTricuspid valve is normal size and function. Moderate transvalvular regurgitation. Right ventricular systolic pressure is greater than 60 mmHg. No stenosis.Aortic ValveAortic valve is normal in structure and function. Mildly calcified cusps. No transvalvular regurgitation.Pulmoni c ValvePulmonic valve is normal in structure and function. Trace transvalvular regurgitation. No stenosis.Ascending AortaNormal sized aorta.PericardiumThe pericardium is normal. No pericardial effusion.Study DetailsStudy quality was adequate. A complete echocardiogram was performed using 2D, color flow Doppler and spectral Doppler. [facility] GLUCOSE (AUTOMATED)2022-07-21 17:23:41 Test Item Value Reference Range Interpretation Comments POCT GLU (test code = 6599486613) 204 mg/dL 70-110 H Lab Interpretation (test code = Abnormal 55308-5) [facility] GLUCOSE (AUTOMATED)2022-07-21 14:20:49 Test Item Value Reference Range Interpretation Comments POCT GLU (test code = 7473932992) 153 mg/dL 70-110 H Lab Interpretation (test code = Abnormal 77705-4) [facility] CenterTOTAL IRON BINDING [id number] 09:40:03 Test Item Value Reference Range Interpretation Comments TIBC (test code = 8348869540) 301 ug/dL 250-410 % FE SAT (test code = 5444753516) 11 % 20-50 L Lab Interpretation (test code = Abnormal 71657-9) [facility] CenterIRON2022-11-18 09:30:43 Test Item Value Reference Range Interpretation Comments IRON (test code = 5358200313) 32 ug/dL 50-160 L Lab Interpretation (test code = Abnormal 46910-6) [facility] CenterGlycosylated Hemoglobin (A1C)2022-07-21 07:56:04 Test Item Value Reference Range Interpretation Comments HGB A1C (test code = 8.0 % 4.0-5.7 H 4548-4) JESSICA (test code = JESSICA) Reference RangesNormal: <5.7%Prediabetes: 5.7 - 6.4%Diabetes: > 6.5% Lab Interpretation (test Abnormal code = 44663-4) [facility] CenterTROPONIN [id number] 00:28:47 Test Item Value Reference Interpretation Comments Range TROPONIN I (test 0.020 ng/mL See_Comment [Automated code = 2653439132) message] The system which generated this result transmitted reference range : <=0.034. The reference range was not used to interpret this result as normal/abnormal . JESSICA (test code = Reference (Normal) JESSICA) Range (defined by the 99th percentile reference limit): <= 0.034 ng/mL Note: Cardiac troponin begins to rise 3-4 hours after the onset of ischemia. Repeat in 4-6 hours if the sample was drawn within 3-4 hours of the onset of the symptom and found normal. Diagnosis of myocardial injury is made with acute changes in cTn concentrations with at least one serial sample above the 99th percentile upper reference limit (URL), taken together with the patient's clinical presentation. Biotin has been reported to cause a negative bias, interpret results relative to patient's use of biotin. Lab Interpretation Normal (test code = 16957-3) [facility] CenterN-TERMINAL [id number] 00:25:50 Test Item Value Reference Range Interpretation Comments NT-proBNP (test code 9240 pg/mL See_Comment H [Autom ated = 4117268323) message] The system which generated this result transmitted reference range : <=450. The reference range was not used to interpret this result as normal/abnormal . JESSICA (test code = JESSICA) Biotin has been reported to cause a negative bias, interpret results relative to patient's use of biotin. Lab Interpretation Abnormal (test code = 28738-4) [facility] CenterCOMP. METABOLIC PANEL (72612)2022-07-21 00:17:15 Test Item Value Reference Range Interpretation Comments NA (test code = 139 mmol/L 135-145 9347290773) K (test code = 4.4 mmol/L 3.5-5.0 2893929127) CL (test code = 107 mmol/L 98-108 4544806192) CO2 TOTAL (test code = 18 mmol/L 23-31 L 3980426680) AGAP (test code = 2-16 8919556518) BUN (test code = 21 mg/dL 7-23 7690043970) GLUCOSE (test code = 233 mg/dL 70-110 H 5782455161) CREATININE (test code = 1.65 mg/dL 0.60-1.25 H 1380249203) TOTAL BILI (test code = 1.2 mg/dL 0.1-1.1 H 1873185815) CALCIUM (test code = 9.0 mg/dL 8.6-10.6 4755513703) T PROTEIN (test code = 7.7 g/dL 6.3-8.2 3609626456) ALBUMIN (test code = 4.2 g/dL 3.5-5.0 0120400198) ALK PHOS (test code = 75 U/L 34-122 8544559230) ALTv (test code = 17 U/L 5-50 1742-6) AST(SGOT) (test code = 22 U/L 13-40 7629628292) eGFR (test code = mL/min/1.73m2 6313744592) JESSICA (test code = JESSICA) Association of Glomerular Filtration Rate (GFR) and Staging of Kidney Disease* + --+ --+ ------+| GFR (mL/min/1.73 m2) ?| With Kidney Damage ?| ?Without Kidney Damage+ --------+ --------+ +| ?>90 ?| ?Stage one ?| ? Normal ?+ ---+ ---+ -------+| ?60-89 ?| ?Stage two ?| ? Decreased GFR ? + --+ --+ ------+| ?30-59 ?| ?Stage three ?| ? Stage three ? + --+ --+ ------+| ?15-29 ?| ?Stage four ? | ? Stage four ?+ ---+ ---+ -------+| ?<15 (or dialysis) ? ?| ?Stage five ? | ? Stage five ?+ ---+ ---+ -------+ *Each stage assumes the associated GFR level has been in effect for at least three months. ?Stages 1 to 5, with or without kidney disease, indicate chronic kidney disease. Notes: Determination of stages one and two (with eGFR >59mL/min/1.73 m2) requires estimation of kidney damage for at least three months as defined by structural or functional abnormalities of the kidney, manifested by either:Pathological abnormalities or Markers of kidney damage (including abnormalities in the composition of the blood or urine or abnormalities in imaging tests). Lab Interpretation Abnormal (test code = 44825-7) [facility] WITH [id number] 00:05:25 Test Item Value Reference Range Interpretation Comments WBC (test code = See_Comment [Automated 6690-2) message] The sy stem which generated this result transmitted reference range : 4.20 - 10.70 10*3/?L. The reference range was not used to interpret this result as normal/abnormal . RBC (test code = See_Comment L [Automated 789-8) message] The sy stem which generated this result transmitted reference range : 4.26 - 5.52 10*6/?L. The reference range was not used to interpret this result as normal/abnormal . HGB (test code = 10.3 g/dL 12.2-16.4 L 718-7) HCT (test code = 30.6 % 38.4-49.3 L 4544-3) MCV (test code = 86.2 fL 81.7-95.6 787-2) MCH (test code = 29.0 pg 26.1-32.7 785-6) MCHC (test code = 33.7 g/dL 31.2-35.0 786-4) RDW-SD (test code = 40.7 fL 38.5-51.6 44319-7) RDW-CV (test code = 13.1 % 12.1-15.4 788-0) PLT (test code = See_Comment H [Automated 777-3) message] The sy stem which generated this result transmitted reference range : 150 - 328 10*3/ ?L. The reference r cassandra was not used to interpret this result as normal/abnormal . MPV (test code = 10.0 fL 9.8-13.0 29342-9) NRBC/100 WBC (test See_Comment [Automat ed code = 5076810389) message] The system which generated this result transmitted reference range : 0.0 - 10.0 /100 WBCs. The refer ence range was not u sed to interpret th is result as normal/abnormal . NRBC x10^3 (test code See_Comment [Auto mated = 9941534079) message] The s ystem which generated this result transmitted reference range : 10*3/?L. The reference range was not used to interpret this result as normal/abnormal . GRAN MAT (NEUT) % 69.8 % (test code = 770-8) IMM GRAN % (test code 0.50 % = 4954577502) LYMPH % (test code = 12.3 % 736-9) MONO % (test code = 14.0 % 5905-5) EOS % (test code = 2.7 % 713-8) BASO % (test code = 0.7 % 706-2) GRAN MAT x10^3(ANC) 6.85 10*3/uL 1.99-6.95 (test code = 8738619102) IMM GRAN x10^3 (test 0.05 10*3/uL 0.00-0.06 code = 2769696170) LYMPH x10^3 (test code 1.21 10*3/uL 1.09-3.23 = 731-0) MONO x10^3 (test code 1.37 10*3/uL 0.36-1.02 H = 742-7) EOS x10^3 (test code = 0.26 10*3/uL 0.06-0.53 711-2) BASO x10^3 (test code 0.07 10*3/uL 0.01-0.09 = 704-7) Lab Interpretation Abnormal (test code = 19332-5) [facility] HEMOGLOBIN A1C [id number] 21:31:00 Test Item Value Reference Range Interpretation Comments POCT HBA1C (test code = 4548-4) 8.8 % 4-6 A Lab Interpretation (test code = Abnormal 77157-2) [facility] HEMOGLOBIN A1C [id number] 21:31:00 Test Item Value Reference Range Interpretation Comments POCT HBA1C (test code = 4548-4) 8.8 % 4-6 A Lab Interpretation (test code = Abnormal 37390-8) [facility] GLUCOSE (AUTOMATED)2022-07-08 21:15:57 Test Item Value Reference Range Interpretation Comments POCT GLU (test code = 8467130315) 142 mg/dL 70-110 H Lab Interpretation (test code = Abnormal 66159-9) [facility] GLUCOSE (AUTOMATED)2022-07-08 19:59:33 Test Item Value Reference Range Interpretation Comments POCT GLU (test code = 9501583383) 120 mg/dL 70-110 H Lab Interpretation (test code = Abnormal 02075-8) [facility] GLUCOSE (AUTOMATED)2022-07-08 19:43:56 Test Item Value Reference Range Interpretation Comments POCT GLU (test code = 2316718861) 89 mg/dL 70-110 Lab Interpretation (test code = Normal 79457-8) [facility] HEMOGLOBIN A1C [id number] 20:29:00 Test Item Value Reference Range Interpretation Comments POCT HBA1C (test code = 4548-4) 11.2 % 4-6 A Lab Interpretation (test code = Abnormal 25716-0) [facility]
--- NOTE | 2022-09-23 14:48 | RAD REPORT ---
EXAM DESCRIPTION: RAD - Chest Single View - 09/23/2022 2:41 pm CLINICAL HISTORY: left arm and left leg weakness COMPARISON: No comparisons FINDINGS: Lines: None. Lungs: No evidence of edema or pneumonia. Pleural: No significant pleural effusions or pneumothorax. Cardiac: Mild cardiomegaly. Mediastinum: Within normal limits. Bones: No acute fractures. Soft tissue anchor in the humeral head. Other: Sternotomy IMPRESSION: No acute cardiopulmonary disease.
[2022-09-23 15:05] LABS: Absolute Lymphocytes (CBC) 2.4 K/uL (0.7-4.9); Hematocrit 34.1 % (39.6-49.0); Lymphocytes % 25.1 % (15.3-44.8); MCV 83.6 fL (80-100); MPV 8.5 fL (7.6-11.3); RBC Red Blood Cell Count 4.08 M/uL (4.33-5.43)
[2022-09-23 15:08] LABS: SARS-CoV-2 Antigen Rapid Res Negative (Negative)
[2022-09-23 15:13] LABS: Protime INR 1.08
--- NOTE | 2022-09-23 15:20 | RAD REPORT ---
EXAM DESCRIPTION: CT - Head Brain Wo Cont - 09/23/2022 3:12 pm CLINICAL HISTORY: left arm anf left leg weakness COMPARISON: <Comparisons> TECHNIQUE: All CT scans are performed using dose optimization technique as appropriate and may inclu de automated exposure control or mA/KV adjustment according to patient size. FINDINGS: No intracranial hemorrhage, hydrocephalus or extra-axial fluid collection.No areas of brai n edema or evidence of midline shift. Scattered hypoattenuating foci including in the right frontal l obe, right alvarez radiata, and bilateral cerebellar hemisphere infarcts. No acute large vascular terr itory infarct. The right frontal lobe hypoattenuation likely represents a small, probably remote, cor tical infarct. Chronically opacified left maxillary sinus with periosteal thickening. Trace right maxillary sinus th ickening. The calvarium is intact. IMPRESSION: No acute large vascular territory infarct. 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 MRI could better assess.
[2022-09-23 15:28] LABS: Albumin 3.9 g/dL (3.4-5.0); Bilirubin Direct 0.2 mg/dL (0-0.2); Bilirubin Total 0.8 mg/dL (0.2-1.0); Potassium 3.5 mmol/L (3.5-5.1); Protein, Total 8.3 g/dL (6.4-8.2); Troponin High Sensitivity 24.5 pg/mL (<58.9)
[2022-09-23] MEDS ORDERED: ASPIRIN 81 MG CHEWABLE TABLET ONE (15:59)
[2022-09-23] MEDS ORDERED: FOLIC ACID 5 MG/ML VIAL ONE (16:00)
[2022-09-23] MEDS ORDERED: NA CHLORIDE 0.9% 250 ML ONE (16:00)
[2022-09-23 16:06] LABS: Urine Blood Negative (Negative); Urine Glucose Negative (Negative); Urine Protein 1+ (Negative); Urine pH 5.5 (5.0-7.0)
[2022-09-23 16:23] LABS: Urine Bacteria None Seen /HPF (<20); Urine RBC <5 /HPF (None Seen)
--- NOTE | 2022-09-23 16:25 | ER ---
Nurse's Notes [facility] Name: Shane Powers Jr Age: 82 yrs Sex: Male : 1940 Arrival Date: 09/23/2022 Time: 13:26 Bed 20 Private MD: Diagnosis: Cerebral infarction, unspecified;Weakness-left arm and left leg Presentation: 09/23 13:47 Chief complaint: Patient's son or daughter states: Weakness to left arm and leg x 2 jl7 days. Coronavirus screen: At this time, the client does not indicate any symptoms associated with coronavirus-19. Ebola Screen: No symptoms or risks identified at this time. No acute neurological deficit is noted. The patients blood glucose was checked before arriving to the hospital and was found to be normal. Initial Sepsis Screen: Does the patient meet any 2 criteria? No. Patient's initial sepsis screen is negative. Does the patient have a suspected source of infection? No. Patient's initial sepsis screen is negative. Risk Assessment: Do you want to hurt yourself or someone else? Patient reports no desire to harm self or others. Onset of symptoms was September 21, 2022. 13:47 Method Of Arrival: Wheelchair jl7 13:47 Acuity: CHERELLE 3 jl7 Triage Assessment: 13:53 The onset of the patients symptoms was September 21, 2022 at 12:00. General: Appears in jl7 no apparent distress. uncomfortable, Behavior is calm, cooperative, appropriate for age. Pain: Denies pain. Neuro: Level of Consciousness is awake, alert, obeys commands, Oriented to person, place, time, situation, Reports weakness in left arm and left leg. Stroke Activation: Symptom onset > 6 hours Physician: Stroke Attending; Name: ; Notified At: ; Arrived At: Physician: Chief Stroke Resident; Name: ; Notified At: ; Arrived At: Physician: Stroke Resident; Name: ; Notified At: ; Arrived At: Physician: ED Attending; Name: ; Notified At: ; Arrived At: Physician: ED Resident; Name: ; Notified At: ; Arrived At: Historical: - Allergies: 13:53 No Known Allergies; jl7 - Home Meds: 13:53 amlodipine 10 mg oral tab [Active]; levothyroxine 88 mcg cap [Active]; hydralazine 50 jl7 mg Oral tab [Active]; Lasix 40 mg Oral tab [Active]; clopidogrel 75 mg oral tab [Active]; atorvastatin 40 mg oral tab [Active]; losartan 25 mg oral tab [Active]; Novolin 70/30 [place] Sub-Q [Active]; - PMHx: 13:53 Diabetes mellitus; Hypertensive disorder; Congestive heart failure; jl7 - PSHx: 13:53 Coronary artery bypass graft; jl7 - Immunization history:: Client reports receiving the 2nd dose of the Covid vaccine. - Social history:: Smoking status: Patient denies any tobacco usage or history of. Screenin:02 [facility] ED Fall Risk Assessment (Adult) History of falling in the last 3 months, pf1 including since admission No falls in past 3 months (0 pts) Confusion or Disorientation No (0 pts) Intoxicated or Sedated No (0 pts) Impaired Gait Yes (1 pt) Mobility Assist Device Used Yes (1 pt) Altered Elimination No (0 pt) Score/Fall Risk Level 0 - 2 = Low Risk Oriented to surroundings, Maintained a safe environment, Educated pt \T\ family on fall prevention, incl call for assistance when getting out of bed, Assessed \T\ reinforced patient's understanding of fall precautions, Provided non-skid footwear, Hourly rounding (assess needs \T\ fall precautionary measures) done, Used ambulatory aids as needed (educated on \T\ assisted with), Used gait belt as appropriate. Abuse screen: Denies threats or abuse. Nutritional screening: No deficits noted. Tuberculosis screening: No symptoms or risk factors identified. Assessment: 13:50 General: Appears in no apparent distress. comfortable, Behavior is calm, cooperative, mb9 appropriate for age. Pain: Denies pain. Neuro: Salgado Agitation-Sedation Scale (RASS): 0 - Alert and Calm Level of Consciousness is awake, alert, obeys commands, Oriented to person, place, time, situation, Appropriate for age Records Management Engineer are equal bilaterally Full function Gait is steady, Speech is normal, Facial symmetry appears normal, Pupils are PERRLA, Numbness in left leg and left arm. Neuro: Denies blurred vision dizziness, headache. Cardiovascular: Capillary refill < 3 seconds is brisk Patient's skin is warm and dry. Respiratory: Airway is patent Respiratory effort is even, unlabored, Respiratory pattern is Breath sounds are clear bilaterally. GI: Abdomen is flat, non-distended. : No signs and/or symptoms were reported regarding the genitourinary system. EENT: No signs and/or symptoms were reported regarding the EENT system. Derm: Skin is pink, warm \T\ dry. Musculoskeletal: Range of motion: limited in left leg and left arm. 14:50 Reassessment: No changes from previously documented assessment. Patient and/or family mb9 updated on plan of care and expected duration. Pain level reassessed. Patient is alert, oriented x 3, equal unlabored respirations, skin warm/dry/pink. 15:51 Reassessment: No changes from previously documented assessment. Patient and/or family mb9 updated on plan of care and expected duration. Pain level reassessed. Patient is alert, oriented x 3, equal unlabored respirations, skin warm/dry/pink. 17:07 Reassessment: No changes from previously documented assessment. Patient and/or family mb9 updated on plan of care and expected duration. Pain level reassessed. Patient is alert, oriented x 3, equal unlabored respirations, skin warm/dry/pink. 18:00 Reassessment: No changes from previously documented assessment. Patient and/or family mb9 updated on plan of care and expected duration. Pain level reassessed. Patient is alert, oriented x 3, equal unlabored respirations, skin warm/dry/pink. 19:15 General: Appears in no apparent distress. comfortable, well groomed, well developed, pf1 Behavior is calm, cooperative, appropriate for age, quiet. Pain: Denies pain. Neuro: Level of Consciousness is awake, alert, obeys commands, Oriented to person, place, time, situation, Records Management Engineer are weak on left Moves all extremities. Weakness in left arm(s) leg(s) Gait is unsteady, Speech is normal, Facial symmetry appears normal, Pupils are PERRLA, Pupil Size: 3 Numbness in left leg and left arm Denies headache. Cardiovascular: Capillary refill < 3 seconds is brisk Patient's skin is warm and dry. Respiratory: Airway is patent Trachea midline Respiratory effort is even, unlabored, Respiratory pattern is regular, symmetrical, Breath sounds are clear bilaterally. GI: No deficits noted. Abdomen is flat, non-distended, Bowel sounds present X 4 quads. Abd is soft and non tender X 4 quads. : No deficits noted. No signs and/or symptoms were reported regarding the genitourinary system. EENT: No deficits noted. No signs and/or symptoms were reported regarding the EENT system. Derm: Skin is pink, warm \T\ dry. Musculoskeletal: Capillary refill < 3 seconds. 21:04 Reassessment: Patient appears in no apparent distress at this time. No changes from pf1 previously documented assessment. Patient and/or family updated on plan of care and expected duration. Pain level reassessed. Patient is alert, oriented x 3, equal unlabored respirations, skin warm/dry/pink. Patient states symptoms have not improved. Vital Signs: 13:53 BP 128 / 55; Pulse 78; Resp 17 S; Temp 98.6(TE); Pulse Ox 98% on R/A; Weight 74.39 kg [facility] (R); Height 5 ft. 7 in. (170.18 cm); Pain 0/10; 16:24 BP 140 / 69; Pulse 85; Resp 18; Pulse Ox 100% ; mb9 17:36 BP 145 / 71; Pulse 85; Resp 16; Pulse Ox 100% on R/A; mb9 19:00 BP 146 / 76; Pulse 90; Resp 18; Temp 98.4; Pulse Ox 98% on R/A; Pain 0/10; pf1 20:00 BP 142 / 82; Pulse 87; Resp 14; Pulse Ox 98% on R/A; Pain 0/10; pf1 21:00 BP 155 / 81; Pulse 83; Resp 14; Temp 98; Pulse Ox 100% on R/A; Pain 0/10; pf1 13:53 Body Mass Index 25.69 (74.39 kg, 170.18 cm) [facility] NIH Stroke Scale Scores: 13:50 NIHSS Score: 1 mb9 13:59 NIHSS Score: 4 cp 14:50 NIHSS Score: 1 mb9 15:51 NIHSS Score: 1 mb9 17:07 NIHSS Score: 1 mb9 20:00 NIHSS Score: 4 pf1 ED Course: 13:26 Patient arrived in ED. as 13:47 Chuyita Turner, KARAN is Primary Nurse. 9 13:50 Triage completed. [facility] 13:52 Bubba Mcmanus PA is PHCP. cp 13:52 Jacob Mckeon MD is Attending Physician. cp 13:53 Arm band placed on right wrist. jl7 13:53 Placed in gown. Bed in low position. Call light in reach. Side rails up X 1. Client mb9 placed on continuous cardiac and pulse oximetry monitoring. NIBP monitoring applied. truck shop mechanic on. 13:53 Inserted saline lock: 22 gauge in left antecubital area, using aseptic technique. Blood mb9 collected. 14:21 Chuyita Turner RN is Primary Nurse. mb9 14:42 XRAY Chest (1 view) In Process Unspecified. EDMS 15:14 CT Head Brain wo Cont In Process Unspecified. EDMS 16:08 Urine Microscopic Only Sent. mb9 16:23 Ramon Mckeon MD is Hospitalizing Provider. cp 16:56 Shane Reynolds MD is Hospitalizing Provider. cp 18:46 Inserted saline lock: 22 gauge in right hand, using aseptic technique. aa5 19:00 IV discontinued, intact, bleeding controlled, No redness/swelling at site. Pressure pf1 dressing applied, 20 gauge to LAC has been removed per dayshift. 21:03 No provider procedures requiring assistance completed. Patient admitted, IV remains in pf1 place. Administered Medications: 15:55 Drug: Aspirin Chewable Tablet 81 mg Route: PO; mb9 16:23 Follow up: Response: No adverse reaction mb9 16:00 Drug: foLIC Acid 1 mg Route: IVPB; Site: left antecubital; mb9 19:00 Follow up: Response: No adverse reaction; IV Status: Completed infusion; IV Intake: [id number] 16:00 Drug: NS 0.9% 250 ml Route: IV; Rate: bolus; Site: left antecubital; mb9 19:00 Follow up: IV Status: Completed infusion; IV Intake: 250ml pf1 Medication: 21:17 VIS not applicable for this client. pf1 Intake: 19:00 IV: 250ml; Total: 250ml. pf1 19:00 IV: 10ml; Total: 260ml. pf1 Outcome: 16:24 Decision to Hospitalize by Provider. cp 21:16 Admitted to Tele accompanied by marybel, via stretcher, room 412, with chart, Report pf1 called to Sandy.RN 21:16 Condition: stable 21:16 Instructed on the need for admit, Demonstrated understanding of instructions. 21:20 Patient left the ED. pf1 NIH Stroke Scale - NIH Stroke Score Date: 09/23/2022 Time: 13:50 Total Score = 1 1a. Level of Consciousness (LOC) - 0(Alert) 1b. Level of Consciousness (LOC) (Month \T\ Age) - 0(Both) 1c. LOC Commands (Open \T\ Closes Eyes/Licensed Reactor Operator) - 0(Both) 2. Best Gaze (Lateral Gaze Paresis) - 0(Normal) 3. Visual Field Loss - 0(No visual loss) 4. Facial Palsy - 0(Normal) 5a. Left Arm: Motor (10-second hold) - 1(Drift) 5b. Right Arm: Motor (10-second hold) - 0(No drift) 6a. Left Leg: Motor (5-second hold - always test supine) - 0(No drift) 6b. Right Leg: Motor (5-second hold - always test supine) - 0(No drift) 7. Limb Ataxia (finger/nose \T\ heel/jane - test with eyes open) - 0(Absent) 8. Sensory Loss (pinprick arms/legs/face) - 0(Normal) 9. Best Language: Aphasia (description/naming/reading) - 0(No aphasia) 10. Dysarthria (speech clarity - read or repeat words) - 0(Normal) 11. Extinction and Inattention (visual/tactile/auditory/spatial/personal) - 0(No abnormality) Initials: mb9 NIH Stroke Scale - NIH Stroke Score Date: 09/23/2022 Time: 13:59 Total Score = 4 1a. Level of Consciousness (LOC) - 0(Alert) 1b. Level of Consciousness (LOC) (Month \T\ Age) - 0(Both) 1c. LOC Commands (Open \T\ Closes Eyes/Licensed Reactor Operator) - 0(Both) 2. Best Gaze (Lateral Gaze Paresis) - 0(Normal) 3. Visual Field Loss - 0(No visual loss) 4. Facial Palsy - 0(Normal) 5a. Left Arm: Motor (10-second hold) - 1(Drift) 5b. Right Arm: Motor (10-second hold) - 0(No drift) 6a. Left Leg: Motor (5-second hold - always test supine) - 1(Drift) 6b. Right Leg: Motor (5-second hold - always test supine) - 0(No drift) 7. Limb Ataxia (finger/nose \T\ heel/jane - test with eyes open) - 2(Present in two limbs) 8. Sensory Loss (pinprick arms/legs/face) - 0(Normal) 9. Best Language: Aphasia (description/naming/reading) - 0(No aphasia) 10. Dysarthria (speech clarity - read or repeat words) - 0(Normal) 11. Extinction and Inattention (visual/tactile/auditory/spatial/personal) - 0(No abnormality) Initials: cp NIH Stroke Scale - NIH Stroke Score Date: 09/23/2022 Time: 14:50 Total Score = 1 1a. Level of Consciousness (LOC) - 0(Alert) 1b. Level of Consciousness (LOC) (Month \T\ Age) - 0(Both) 1c. LOC Commands (Open \T\ Closes Eyes/Licensed Reactor Operator) - 0(Both) 2. Best Gaze (Lateral Gaze Paresis) - 0(Normal) 3. Visual Field Loss - 0(No visual loss) 4. Facial Palsy - 0(Normal) 5a. Left Arm: Motor (10-second hold) - 1(Drift) 5b. Right Arm: Motor (10-second hold) - 0(No drift) 6a. Left Leg: Motor (5-second hold - always test supine) - 0(No drift) 6b. Right Leg: Motor (5-second hold - always test supine) - 0(No drift) 7. Limb Ataxia (finger/nose \T\ heel/jane - test with eyes open) - 0(Absent) 8. Sensory Loss (pinprick arms/legs/face) - 0(Normal) 9. Best Language: Aphasia (description/naming/reading) - 0(No aphasia) 10. Dysarthria (speech clarity - read or repeat words) - 0(Normal) 11. Extinction and Inattention (visual/tactile/auditory/spatial/personal) - 0(No abnormality) Initials: mb9 NIH Stroke Scale - NIH Stroke Score Date: 09/23/2022 Time: 15:51 Total Score = 1 1a. Level of Consciousness (LOC) - 0(Alert) 1b. Level of Consciousness (LOC) (Month \T\ Age) - 0(Both) 1c. LOC Commands (Open \T\ Closes Eyes/Licensed Reactor Operator) - 0(Both) 2. Best Gaze (Lateral Gaze Paresis) - 0(Normal) 3. Visual Field Loss - 0(No visual loss) 4. Facial Palsy - 0(Normal) 5a. Left Arm: Motor (10-second hold) - 1(Drift) 5b. Right Arm: Motor (10-second hold) - 0(No drift) 6a. Left Leg: Motor (5-second hold - always test supine) - 0(No drift) 6b. Right Leg: Motor (5-second hold - always test supine) - 0(No drift) 7. Limb Ataxia (finger/nose \T\ heel/jane - test with eyes open) - 0(Absent) 8. Sensory Loss (pinprick arms/legs/face) - 0(Normal) 9. Best Language: Aphasia (description/naming/reading) - 0(No aphasia) 10. Dysarthria (speech clarity - read or repeat words) - 0(Normal) 11. Extinction and Inattention (visual/tactile/auditory/spatial/personal) - 0(No abnormality) Initials: mb9 NIH Stroke Scale - NIH Stroke Score Date: 09/23/2022 Time: 17:07 Total Score = 1 1a. Level of Consciousness (LOC) - 0(Alert) 1b. Level of Consciousness (LOC) (Month \T\ Age) - 0(Both) 1c. LOC Commands (Open \T\ Closes Eyes/Licensed Reactor Operator) - 0(Both) 2. Best Gaze (Lateral Gaze Paresis) - 0(Normal) 3. Visual Field Loss - 0(No visual loss) 4. Facial Palsy - 0(Normal) 5a. Left Arm: Motor (10-second hold) - 1(Drift) 5b. Right Arm: Motor (10-second hold) - 0(No drift) 6a. Left Leg: Motor (5-second hold - always test supine) - 0(No drift) 6b. Right Leg: Motor (5-second hold - always test supine) - 0(No drift) 7. Limb Ataxia (finger/nose \T\ heel/jane - test with eyes open) - 0(Absent) 8. Sensory Loss (pinprick arms/legs/face) - 0(Normal) 9. Best Language: Aphasia (description/naming/reading) - 0(No aphasia) 10. Dysarthria (speech clarity - read or repeat words) - 0(Normal) 11. Extinction and Inattention (visual/tactile/auditory/spatial/personal) - 0(No abnormality) Initials: mb9 NIH Stroke Scale - NIH Stroke Score Date: 09/23/2022 Time: 20:00 Total Score = 4 1a. Level of Consciousness (LOC) - 0(Alert) 1b. Level of Consciousness (LOC) (Month \T\ Age) - 0(Both) 1c. LOC Commands (Open \T\ Closes Eyes/Licensed Reactor Operator) - 0(Both) 2. Best Gaze (Lateral Gaze Paresis) - 0(Normal) 3. Visual Field Loss - 0(No visual loss) 4. Facial Palsy - 1(Minor Paralysis) 5a. Left Arm: Motor (10-second hold) - 1(Drift) 5b. Right Arm: Motor (10-second hold) - 0(No drift) 6a. Left Leg: Motor (5-second hold - always test supine) - 1(Drift) 6b. Right Leg: Motor (5-second hold - always test supine) - 0(No drift) 7. Limb Ataxia (finger/nose \T\ heel/jane - test with eyes open) - 0(Absent) 8. Sensory Loss (pinprick arms/legs/face) - 1(Mild to moderate loss) 9. Best Language: Aphasia (description/naming/reading) - 0(No aphasia) 10. Dysarthria (speech clarity - read or repeat words) - 0(Normal) 11. Extinction and Inattention (visual/tactile/auditory/spatial/personal) - 0(No abnormality) Initials: pf1 Signatures: Dispatcher [employer] Mamta Staples Audri, RN RN aa5 Bubba Mcmanus PA PA cp Leal, Jahala, RN RN jl7 Chuyita Turner, RN RN mb9 Mary clark, KARAN RN pf1 Corrections: (The following items were deleted from the chart) 15:51 13:50 NIHSS Score: 0 mb9 mb9
--- NOTE | 2022-09-23 16:25 | EDPHYS ---
Physician Documentation [facility] Name: Shane Powers Jr Age: 82 yrs Sex: Male : 1940 Arrival Date: 09/23/2022 Time: 13:26 Bed 20 Private MD: ED Physician Jacob Mckeon HPI: 09/23 13:54 This 82 yrs old Black Male presents to ER via Wheelchair with complaints of Numbness Of cp Arm, Numbness Of Leg. 13:54 The patient's problem is reported as paresthesias, in left upper extremity, in left cp lower extremity, weakness, in the left upper extremity, in the left lower extremity. Onset: The symptoms/episode began/occurred 2 day(s) ago. Duration: The episode is continuous. Context: symptoms became apparent upon waking. Associated signs and symptoms: Pertinent negatives: abdominal pain, chest pain, confusion, diaphoresis, headache, palpitations, seizure. Severity of symptoms: in the emergency department the symptoms are unchanged despite home interventions. Patient's baseline: Neuro: alert and fully oriented, Motor: no deficits, Ambulation: walks without assistance, Speech: normal. Historical: - Allergies: 13:53 No Known Allergies; jl7 - Home Meds: 13:53 amlodipine 10 mg oral tab [Active]; levothyroxine 88 mcg cap [Active]; hydralazine 50 jl7 mg Oral tab [Active]; Lasix 40 mg Oral tab [Active]; clopidogrel 75 mg oral tab [Active]; atorvastatin 40 mg oral tab [Active]; losartan 25 mg oral tab [Active]; Novolin 70/30 [place] Sub-Q [Active]; - PMHx: 13:53 Diabetes mellitus; Hypertensive disorder; Congestive heart failure; jl7 - PSHx: 13:53 Coronary artery bypass graft; jl7 - Immunization history:: Client reports receiving the 2nd dose of the Covid vaccine. - Social history:: Smoking status: Patient denies any tobacco usage or history of. ROS: 14:13 Constitutional: Negative for body aches, chills, fever, poor PO intake. cp 14:13 Neck: Negative for pain with movement, pain at rest, stiffness. 14:13 Cardiovascular: Negative for chest pain, edema, palpitations. 14:13 Respiratory: Negative for cough, shortness of breath, wheezing. 14:13 Abdomen/GI: Negative for abdominal pain, vomiting, diarrhea, constipation. 14:13 Neuro: Positive for weakness, of the left arm and left leg, Negative for altered mental status, headache, visual changes. 14:13 Eyes: Negative for injury, pain, redness, and discharge. cp 14:13 All other systems are negative. cp Exam: 14:15 Head/Face: Normocephalic, atraumatic. cp 14:15 Constitutional: The patient appears in no acute distress, alert, awake, comfortable, non-diaphoretic, non-toxic, well developed, well nourished. 14:15 Eyes: Periorbital structures: appear normal, Pupils: equal, round, and reactive to light and accomodation, Extraocular movements: intact throughout, Conjunctiva: normal, no exudate, no injection, Sclera: no appreciated abnormality, Lids and lashes: appear normal, bilaterally, Visual verdin: are intact. 14:15 ENT: External ear(s): are unremarkable, Nose: is normal, Mouth: Lips: moist, Oral cp mucosa: pink and intact, moist, Posterior pharynx: Airway: no evidence of obstruction, patent. 14:15 Neck: ROM/movement: is normal, is supple, without pain, no range of motions limitations, no nuchal rigidity. 14:15 Chest/axilla: Inspection: normal. cp 14:15 Cardiovascular: Rate: normal, Rhythm: regular, Edema: ankle edema, that is mild, JVD: is not appreciated. 14:15 Respiratory: the patient does not display signs of respiratory distress, Respirations: normal, no use of accessory muscles, no retractions, labored breathing, is not present, Breath sounds: are clear throughout, no decreased breath sounds, no stridor, no wheezing. 14:15 Abdomen/GI: Inspection: abdomen appears normal, Palpation: abdomen is soft and non-tender, in all quadrants. 14:15 Back: pain, is absent, ROM is normal. 14:15 Skin: no rash present. 14:15 Neuro: Orientation: to person, place, situation, Mentation: able to follow commands, slow to respond, Motor: moves all fours, strength is 4/5 in the left hand, Sensation: no obvious gross deficits. 14:50 Radiologist reports: multiple cerebral infarcts noted cp 15:53 ECG was reviewed by the Attending Physician. cp Vital Signs: 13:53 BP 128 / 55; Pulse 78; Resp 17 S; Temp 98.6(TE); Pulse Ox 98% on R/A; Weight 74.39 kg jl7 (R); Height 5 ft. 7 in. (170.18 cm); Pain 0/10; 16:24 BP 140 / 69; Pulse 85; Resp 18; Pulse Ox 100% ; mb9 17:36 BP 145 / 71; Pulse 85; Resp 16; Pulse Ox 100% on R/A; mb9 19:00 BP 146 / 76; Pulse 90; Resp 18; Temp 98.4; Pulse Ox 98% on R/A; Pain 0/10; pf1 20:00 BP 142 / 82; Pulse 87; Resp 14; Pulse Ox 98% on R/A; Pain 0/10; pf1 21:00 BP 155 / 81; Pulse 83; Resp 14; Temp 98; Pulse Ox 100% on R/A; Pain 0/10; pf1 13:53 Body Mass Index 25.69 (74.39 kg, 170.18 cm) 7 NIH Stroke Scale Scores: 13:50 NIHSS Score: 1 mb9 13:59 NIHSS Score: 4 cp 14:50 NIHSS Score: 1 mb9 15:51 NIHSS Score: 1 mb9 17:07 NIHSS Score: 1 mb9 20:00 NIHSS Score: 4 pf1 MDM: 14:05 Patient medically screened. cp 14:15 ED course: patient is not a candidate for tpa as onset of symptoms was 2 days ago. cp 16:25 Historians other than the Patient: Daughter/Son: daughter assisted with HPI. cp 16:25 Management of patient was discussed with the following: Hospitalist: after discussion, DR Reynolds will admit patient. I considered the following discharge prescriptions or medication management in the emergency department Medications were administered in the Emergency Department. See MAR. Test considered but Not performed: Other Details MRI brain, CT angio head and neck. 16:45 Data reviewed: vital signs, nurses notes, lab test result(s), EKG, radiologic studies, cp CT scan, plain films. 09/23 13:54 Order name: Basic Metabolic Panel; Complete Time: 15:48 cp 09/23 15:49 Interpretation: Normal except: ANION GAP 18.5; GLUC 186; BUN 59; CRE 2.58; GFR 24. cp 09/23 13:54 Order name: CBC with Diff cp 09/23 15:49 Interpretation: Normal except: RBC 4.08; HGB 11.3; HCT 34.1; MN% 20.0; MNA 1.9. cp 09/23 13:54 Order name: LFT's; Complete Time: 15:48 cp 09/23 13:54 Order name: Magnesium; Complete Time: 15:48 cp 09/23 13:54 Order name: NT PRO-BNP; Complete Time: 15:48 cp 09/23 15:49 Interpretation: Abnormal: NT PRO-BNP 1494. cp 09/23 13:54 Order name: PT-INR; Complete Time: 15:48 cp 09/23 13:54 Order name: Troponin HS; Complete Time: 15:48 cp 09/23 13:54 Order name: XRAY Chest (1 view); Complete Time: 14:58 cp 09/23 14:59 Interpretation: Report review. 09/23 13:54 Order name: CT Head Brain wo Cont; Complete Time: 15:48 09/23 13:54 Order name: Urine Microscopic Only; Complete Time: 16:39 cp 09/23 16:39 Interpretation: Reviewed. 09/23 13:54 Order name: SARS RAPID; Complete Time: 15:48 cp 09/23 16:06 Order name: Urine Dipstick-Ancillary; Complete Time: 16:14 EDNV 09/23 16:45 Order name: Manual Differential EDNV 09/23 13:54 Order name: EKG; Complete Time: 13:54 09/23 13:54 Order name: Cardiac monitoring; Complete Time: 15:02 09/23 13:54 Order name: EKG - Nurse/Tech; Complete Time: 15:55 cp 09/23 13:54 Order name: IV Saline Lock; Complete Time: 15:02 09/23 13:54 Order name: Labs collected and sent; Complete Time: 15:02 09/23 13:54 Order name: O2 Per Protocol; Complete Time: 15:02 cp 09/23 13:54 Order name: O2 Sat Monitoring; Complete Time: 15:02 cp 09/23 13:54 Order name: Urine Dipstick-Ancillary (obtain specimen); Complete Time: 16:23 cp 09/23 20:23 Order name: US EDMS 09/23 20:36 Order name: [facility] EC:53 Rate is 84 beats/min. Rhythm is regular. CT interval is normal. QRS interval is normal. cp QT interval is normal. Interpreted by me. Reviewed by me. Administered Medications: 15:55 Drug: Aspirin Chewable Tablet 81 mg Route: PO; mb9 16:23 Follow up: Response: No adverse reaction mb9 16:00 Drug: foLIC Acid 1 mg Route: IVPB; Site: left antecubital; mb9 19:00 Follow up: Response: No adverse reaction; IV Status: Completed infusion; IV Intake: [id number] 16:00 Drug: NS 0.9% 250 ml Route: IV; Rate: bolus; Site: left antecubital; mb9 19:00 Follow up: IV Status: Completed infusion; IV Intake: 250ml pf1 Disposition: 09/24 09:15 Co-signature as Attending Physician, Jacob Mckeon MD I reviewed the patient's care rn provided by the Advanced Practice Provider and agree with the diagnosis and treatment plan. Disposition Summary: 09/23/22 16:24 Hospitalization Ordered Hospitalization Status: Inpatient Admission cp Location: Telemetry/[facility]Sur (Inpatient) cp Condition: Stable cp Problem: new cp Symptoms: are unchanged cp Bed/Room Type: Standard cp Provider: Shane Reynolds(09/23/22 16:56) cp Room Assignment: [facility](09/23/22 19:53) Diagnosis - Cerebral infarction, unspecified cp - Weakness - left arm and left leg cp Forms: - Medication Reconciliation Form cp - SBAR form cp NIH Stroke Scale - NIH Stroke Score Date: 09/23/2022 Time: 13:50 Total Score = 1 1a. Level of Consciousness (LOC) - 0(Alert) 1b. Level of Consciousness (LOC) (Month \T\ Age) - 0(Both) 1c. LOC Commands (Open \T\ Closes Eyes/Retail Branch Manager) - 0(Both) 2. Best Gaze (Lateral Gaze Paresis) - 0(Normal) 3. Visual Field Loss - 0(No visual loss) 4. Facial Palsy - 0(Normal) 5a. Left Arm: Motor (10-second hold) - 1(Drift) 5b. Right Arm: Motor (10-second hold) - 0(No drift) 6a. Left Leg: Motor (5-second hold - always test supine) - 0(No drift) 6b. Right Leg: Motor (5-second hold - always test supine) - 0(No drift) 7. Limb Ataxia (finger/nose \T\ heel/jane - test with eyes open) - 0(Absent) 8. Sensory Loss (pinprick arms/legs/face) - 0(Normal) 9. Best Language: Aphasia (description/naming/reading) - 0(No aphasia) 10. Dysarthria (speech clarity - read or repeat words) - 0(Normal) 11. Extinction and Inattention (visual/tactile/auditory/spatial/personal) - 0(No abnormality) Initials: mb9 NIH Stroke Scale - NIH Stroke Score Date: 09/23/2022 Time: 13:59 Total Score = 4 1a. Level of Consciousness (LOC) - 0(Alert) 1b. Level of Consciousness (LOC) (Month \T\ Age) - 0(Both) 1c. LOC Commands (Open \T\ Closes Eyes/Retail Branch Manager) - 0(Both) 2. Best Gaze (Lateral Gaze Paresis) - 0(Normal) 3. Visual Field Loss - 0(No visual loss) 4. Facial Palsy - 0(Normal) 5a. Left Arm: Motor (10-second hold) - 1(Drift) 5b. Right Arm: Motor (10-second hold) - 0(No drift) 6a. Left Leg: Motor (5-second hold - always test supine) - 1(Drift) 6b. Right Leg: Motor (5-second hold - always test supine) - 0(No drift) 7. Limb Ataxia (finger/nose \T\ heel/jane - test with eyes open) - 2(Present in two limbs) 8. Sensory Loss (pinprick arms/legs/face) - 0(Normal) 9. Best Language: Aphasia (description/naming/reading) - 0(No aphasia) 10. Dysarthria (speech clarity - read or repeat words) - 0(Normal) 11. Extinction and Inattention (visual/tactile/auditory/spatial/personal) - 0(No abnormality) Initials: cp NIH Stroke Scale - NIH Stroke Score Date: 09/23/2022 Time: 14:50 Total Score = 1 1a. Level of Consciousness (LOC) - 0(Alert) 1b. Level of Consciousness (LOC) (Month \T\ Age) - 0(Both) 1c. LOC Commands (Open \T\ Closes Eyes/Retail Branch Manager) - 0(Both) 2. Best Gaze (Lateral Gaze Paresis) - 0(Normal) 3. Visual Field Loss - 0(No visual loss) 4. Facial Palsy - 0(Normal) 5a. Left Arm: Motor (10-second hold) - 1(Drift) 5b. Right Arm: Motor (10-second hold) - 0(No drift) 6a. Left Leg: Motor (5-second hold - always test supine) - 0(No drift) 6b. Right Leg: Motor (5-second hold - always test supine) - 0(No drift) 7. Limb Ataxia (finger/nose \T\ heel/jane - test with eyes open) - 0(Absent) 8. Sensory Loss (pinprick arms/legs/face) - 0(Normal) 9. Best Language: Aphasia (description/naming/reading) - 0(No aphasia) 10. Dysarthria (speech clarity - read or repeat words) - 0(Normal) 11. Extinction and Inattention (visual/tactile/auditory/spatial/personal) - 0(No abnormality) Initials: mb9 NIH Stroke Scale - NIH Stroke Score Date: 09/23/2022 Time: 15:51 Total Score = 1 1a. Level of Consciousness (LOC) - 0(Alert) 1b. Level of Consciousness (LOC) (Month \T\ Age) - 0(Both) 1c. LOC Commands (Open \T\ Closes Eyes/Retail Branch Manager) - 0(Both) 2. Best Gaze (Lateral Gaze Paresis) - 0(Normal) 3. Visual Field Loss - 0(No visual loss) 4. Facial Palsy - 0(Normal) 5a. Left Arm: Motor (10-second hold) - 1(Drift) 5b. Right Arm: Motor (10-second hold) - 0(No drift) 6a. Left Leg: Motor (5-second hold - always test supine) - 0(No drift) 6b. Right Leg: Motor (5-second hold - always test supine) - 0(No drift) 7. Limb Ataxia (finger/nose \T\ heel/jane - test with eyes open) - 0(Absent) 8. Sensory Loss (pinprick arms/legs/face) - 0(Normal) 9. Best Language: Aphasia (description/naming/reading) - 0(No aphasia) 10. Dysarthria (speech clarity - read or repeat words) - 0(Normal) 11. Extinction and Inattention (visual/tactile/auditory/spatial/personal) - 0(No abnormality) Initials: 9 NIH Stroke Scale - NIH Stroke Score Date: 09/23/2022 Time: 17:07 Total Score = 1 1a. Level of Consciousness (LOC) - 0(Alert) 1b. Level of Consciousness (LOC) (Month \T\ Age) - 0(Both) 1c. LOC Commands (Open \T\ Closes Eyes/Retail Branch Manager) - 0(Both) 2. Best Gaze (Lateral Gaze Paresis) - 0(Normal) 3. Visual Field Loss - 0(No visual loss) 4. Facial Palsy - 0(Normal) 5a. Left Arm: Motor (10-second hold) - 1(Drift) 5b. Right Arm: Motor (10-second hold) - 0(No drift) 6a. Left Leg: Motor (5-second hold - always test supine) - 0(No drift) 6b. Right Leg: Motor (5-second hold - always test supine) - 0(No drift) 7. Limb Ataxia (finger/nose \T\ heel/jane - test with eyes open) - 0(Absent) 8. Sensory Loss (pinprick arms/legs/face) - 0(Normal) 9. Best Language: Aphasia (description/naming/reading) - 0(No aphasia) 10. Dysarthria (speech clarity - read or repeat words) - 0(Normal) 11. Extinction and Inattention (visual/tactile/auditory/spatial/personal) - 0(No abnormality) Initials: [facility] NIH Stroke Scale - NIH Stroke Score Date: 09/23/2022 Time: 20:00 Total Score = 4 1a. Level of Consciousness (LOC) - 0(Alert) 1b. Level of Consciousness (LOC) (Month \T\ Age) - 0(Both) 1c. LOC Commands (Open \T\ Closes Eyes/Retail Branch Manager) - 0(Both) 2. Best Gaze (Lateral Gaze Paresis) - 0(Normal) 3. Visual Field Loss - 0(No visual loss) 4. Facial Palsy - 1(Minor Paralysis) 5a. Left Arm: Motor (10-second hold) - 1(Drift) 5b. Right Arm: Motor (10-second hold) - 0(No drift) 6a. Left Leg: Motor (5-second hold - always test supine) - 1(Drift) 6b. Right Leg: Motor (5-second hold - always test supine) - 0(No drift) 7. Limb Ataxia (finger/nose \T\ heel/jane - test with eyes open) - 0(Absent) 8. Sensory Loss (pinprick arms/legs/face) - 1(Mild to moderate loss) 9. Best Language: Aphasia (description/naming/reading) - 0(No aphasia) 10. Dysarthria (speech clarity - read or repeat words) - 0(Normal) 11. Extinction and Inattention (visual/tactile/auditory/spatial/personal) - 0(No abnormality) Initials: pf1 Signatures: Dispatcher [employer] EDMS Jacob Mckeon MD MD rn Attema, Lee, ROOF ASSEMBLER-C ROOF ASSEMBLER-Cla1 Bubba Mcmanus PA PA cp Garcia, Cindy, RN RN cg Chance Daugherty RN RN jl7 Chuyita Turner RN RN mb9 Mary clark RN pf1 Corrections: (The following items were deleted from the chart) 09/23 15:14 14:20 Head Angio+CT.RAD.BRZ ordered. EDMS EDMS 15:15 14:22 Neck Angio+CT.RAD.BRZ ordered. EDMS EDMS 16:56 16:24 Ramon Mckeon cp cp 19:53 16:24 cp cg
[2022-09-23 16:44] LABS: Platelet Estimate ADEQ
[2022-09-23 16:45] LABS: Blood Morphology Comment NOT SEEN (NOT SEEN)
--- NOTE | 2022-09-23 18:18 | P.HP ---
Certification for Inpatient Patient admitted to: Inpatient With expected LOS: >2 Midnights Patient will require the following post-hospital care: None Practitioner: I am a practitioner with admitting privileges, knowledge of patient current condition, hospital course, and medical plan of care. Services: Services provided to patient in accordance with Admission requirements found in Title 42 Section 412.3 of the Code of Federal Regulations <Donn Rodriguez - Last Filed: 09/23/22 18:12> Patient History Date of Service: 09/23/22 Reason for admission: CVA, RALF History of Present Illness: 82-year-old male with history of insulin-dependent diabetes, hypertension, hypothyroidism, chronic diastolic congestive heart failure presents the emergency department with left-sided weakness which began on the . He was evaluated here in the emergency department his labs were significant for creatinine of 2.58, GFR of 24 glucose 186. Patient is a known diabetic, I was able to review some of his previous labs and MyChart which did demonstrate a creatinine of 2.0 in late July 2022. Chest x-ray is negative for acute findings, CT of the head without contrast was performed which revealed no acute large vascular territory infarct. Age-indeterminate right frontal lobe, right alvarez radiata and bilateral cerebellar infarcts. Patient well out of the window for any TNKase or vascular intervention at this time. Will admit for further evaluation management of suspected CVA, left-sided weakness, RALF/CKD. - Past Medical/Surgical History -: Insulin-dependent diabetes -: Hypertension -: Hyperlipidemia -: CKD -: Chronic diastolic congestive heart failure -: Hypothyroidism -: CAD with previous CABG -: CABG 2006 Psychosocial/ Personal History: Patient was at home with his daughter - Family History Father -: Heart disease - Social History Smoking Status: Never smoker Alcohol use: No CD- Drugs: No Caffeine use: Yes Place of Residence: Home <Donn Rodriguez - Last Filed: 09/23/22 18:12> Date of Service: 09/24/22 <Shane Reynolds - Last Filed: 09/24/22 16:58> Review of Systems 10-point ROS is otherwise unremarkable Neurological: Weakness (Left upper/left lower extremity) <Donn Rodriguez - Last Filed: 09/23/22 18:12> Physical Examination - Physical Exam General: Alert, In no apparent distress, Oriented x3 HEENT: Atraumatic, PERRLA, Mucous membr. moist/pink, EOMI, Sclerae nonicteric Neck: Supple, 2+ carotid pulse no bruit, No LAD, Without JVD or thyroid abnormality Respiratory: Clear to auscultation bilaterally, Normal air movement Cardiovascular: Regular rate/rhythm, Normal S1 S2 Capillary refill: <2 Seconds Gastrointestinal: Normal bowel sounds, No tenderness Musculoskeletal: No tenderness Integumentary: No rashes Neurological: Normal gait, Normal speech, Normal tone, Normal affect, Abnormal strength (Left upper extremity weakness, left lower extremity weakness) - Studies Laboratory Data (last 24 hrs) 09/23/22 14:54: PT 11.9, INR 1.08 09/23/22 14:54: WBC 9.40, Hgb 11.3 L, Hct 34.1 L, Plt Count 225 09/23/22 14:54: Sodium 137, Potassium 3.5, BUN 59 H, Creatinine 2.58 H, Glucose 186 H, Magnesium 2.0, Total Bilirubin 0.8, AST 26, ALT 22, Alkaline Phosphatase 51 <Donn Rodriguez - Last Filed: 09/23/22 18:12> Assessment and Plan - Plan Assessment: Left upper and lower extremity weakness suspect ischemic CVA RALF on CKD Diabetes mellitus type 2insulin-dependent Chronic diastolic congestive heart failure Hypertension Hyperlipidemia Hypothyroidism History of CAD status post CABG Plan: Left upper and lower extremity weakness suspect ischemic CVA: MRI, echo, carotid Doppler, neurology consult, every 4 neurochecks. Patient passed swallow screen, PT/OT ordered. Aspirin, Plavix, statin, folic acid ordered. NIH of 2 for left upper and lower extremity drift RALF on CKD: Reviewed patient's MyChart labs in late July his creatinine was increasing 1.78 up to 2.0 at that time. Patient does not follow nephrology reportedly. Renal ultrasound ordered, patient was recently started on Lasix, does not appear overloaded. We will continue gentle IV fluids, nephrology consult. Diabetes mellitus type 2insulin-dependent: A1c in the morning, sliding scale insulin. Chronic diastolic congestive heart failure: Hold Lasix given RALF, obtain echocardiogram. Hypertension: Continue amlodipine, hold losartan. Hyperlipidemia: Continue statin. Hypothyroidism: Continue levothyroxine, obtain thyroid panel. History of CAD status post CABG: Continue aspirin, Plavix. Monitor on telemetry. Patient denies any chest pain. DVT PPX: Heparin Code status: Full Discharge Plan: Home - Advance Directives Does patient have a Living Will: No Does patient have a Durable POA for Healthcare: No - Code Status/Comfort Care Code Status Assessed: Yes (Full code) Critical Care: No Time Spent Managing Pts Care (In Minutes): 55 <Donn Rodriguez - Last Filed: 09/23/22 18:12> Physician Review: Patient Assessed, Agree with Above Assessment and Plan <Shane Reynolds - Last Filed: 09/24/22 16:58>
[2022-09-23] MEDS ORDERED: ONDANSETRON 4 MG/2 ML VIAL IV PRN (18:32)
--- NOTE | 2022-09-23 20:23 | RAD REPORT ---
EXAM DESCRIPTION: US - Renal Ultrasound-Complete - 09/23/2022 7:58 pm CLINICAL HISTORY: RALF/CKD COMPARISON: No comparisons FINDINGS: The right kidney measures 8.7 x 4.4 x 4.4 cm. The left kidney measures 12.6 x 3.9 x 4.3 c m. Left kidney has a very elongated craniocaudal dimension extending into the left pelvis. Connection to the right kidney is not seen. Horseshoe kidney is unlikely. 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 Cortical thickness for both kidneys is within range of normal. Echogenicity als o within range of normal. No hydronephrosis present. No suspicious solid or cystic mass of either kid jeremy. An enlarged lobulated prostate gland projects into the bladder base. No bladder wall thickening or ma ss identifiable. IMPRESSION: No hydronephrosis or suspicious mass. No identifiable medical renal disease. Enlarged lobulated prostate gland projecting into the bladder base. 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
--- NOTE | 2022-09-23 20:35 | RAD REPORT ---
EXAM DESCRIPTION: US - CP - 09/23/2022 7:58 pm CLINICAL HISTORY: suspected cva COMPARISON: No comparisons TECHNIQUE: Real-time sonographic evaluation of bilateral carotid and vertebral systems was performed . Ramos scale and Doppler interrogation were performed with waveform tracing bilaterally. FINDINGS: Normal high resistance waveforms are noted in both external carotid arteries. The common c arotid arteries and internal carotid arteries show normal low resistance waveforms. Scattered areas of calcified plaquing seen in common carotid arteries. Or significant calcified plaqu ing changes are present in each carotid bulb. Plaquing extends into the external and internal carotid arteries from each carotid bulb. Peak systolic velocity values are not grossly elevated to a signifi cant degree. The ICA/CCA ratios are normal range. Antegrade flow seen in both vertebral arteries. Velocity values and ratios were recorded and are retained in the patient's imaging records. IMPRESSION: Bilateral calcified plaquing changes in the bilateral carotid bulbs and ICAs. Currently findings do not result in hemodynamically significant stenosis.
[2022-09-23 22:41] VITALS: BMI 25.8
[2022-09-23] MEDS: NA CHLORIDE 0.9% 1,000 ML IV SCH (23:15)
[2022-09-23] MEDS: HEPARIN 5000 UNIT/ML 1 ML VIAL SQ SCH (23:15)
[2022-09-23] MEDS: ATORVASTATIN 40 MG TAB PO SCH (23:16)
[2022-09-23] MEDS: INSULIN -REGULAR HUMAN 50 UNIT/0.5 ML ML SQ SCH (23:17)
[2022-09-24 04:33] LABS: Absolute Lymphocytes (CBC) 1.8 K/uL (0.7-4.9); Hematocrit 30.2 % (39.6-49.0); Lymphocytes % 27.1 % (15.3-44.8); MPV 8.7 fL (7.6-11.3); RBC Red Blood Cell Count 3.64 M/uL (4.33-5.43)
[2022-09-24 05:02] LABS: Potassium 3.2 mmol/L (3.5-5.1); Thyroid Stimulating Hormone 0.877 uIU/mL (0.358-3.740)
[2022-09-24] MEDS: INSULIN -REGULAR HUMAN 50 UNIT/0.5 ML ML SQ SCH ×4 (07:30→22:11)
[2022-09-24] MEDS: AMLODIPINE 5 MG TAB PO SCH (09:13)
[2022-09-24] MEDS: CLOPIDOGREL 75 MG TABLET PO SCH (09:15)
[2022-09-24] MEDS: FOLIC ACID 1 MG TABLET PO SCH (09:15)
[2022-09-24] MEDS: ASPIRIN EC 81 MG TAB PO SCH (09:16)
[2022-09-24] MEDS: HEPARIN 5000 UNIT/ML 1 ML VIAL SQ SCH ×2 (09:16→22:11)
[2022-09-24] MEDS: NA CHLORIDE 0.9% 1,000 ML IV SCH (11:51)
--- NOTE | 2022-09-24 16:59 | P.PN ---
Subjective Date of Service: 09/24/22 Chief Complaint: CVA, RALF No acute events since admission. He endorses that he has had left upper and left lower extremity weakness since 09/21/2022. He denies any chest pain, shortness of breath, or palpitations. Review of Systems 10-point ROS is otherwise unremarkable Neurological: Weakness, Numbness Physical Examination - Vital Signs Temperature: 98.3 F Blood Pressure: 160/72 Pulse: 76 Respirations: 16 Pulse Ox (%): 97 - Physical Exam General: Alert, In no apparent distress, Oriented x3 HEENT: Atraumatic, Mucous membr. moist/pink, EOMI, Sclerae nonicteric Neck: JVD not distended Respiratory: Clear to auscultation bilaterally, Normal air movement Cardiovascular: No edema, Regular rate/rhythm, Normal S1 S2, No gallops, No rubs, No murmurs Gastrointestinal: Normal bowel sounds, Soft and benign, Non-distended, No tenderness, No rebound, No guarding Musculoskeletal: No clubbing Integumentary: No rashes Neurological: Normal speech, Normal tone, Sensation intact, Cranial nerves 3-12 intact, Normal reflexes 2+, Normal affect, Abnormal strength (3/5 in LUE, 4/5 in LLE. 5/5 in RUE. 5/5 in RLE.) Assessment And Plan - Plan NIH Stroke Scale 1a. Level of consciousness: 0 - Alert; keenly responsive 1b. LOC questions: 0 - Both questions right 1c. LOC commands: 0 - Performs both tasks 2. Best Gaze: 0 - Normal 3. Visual: 0 - No visual loss 4. Facial Palsy: 0 - Normal symmetry 5a. Motor left arm: 1 - Drift, but doesn't hit bed 5b. Motor right arm: 0 - No drift for 10 seconds 6a. Motor left le - Drift, but doesn't hit bed 6b. Motor right le - No drift for 5 seconds 7. Limb ataxia: 0 - No ataxia 8. Sensory: 0 - Normal; no sensory loss 9. Best Language: 0 - Normal; no aphasia 10. Dysarthria: 0 - Normal 11. Extinction and Inattention: 0 - No abnormality 12. Distal motor function: 0 - No abnormality Total Score: 2 # Suspect Subacute Right Frontal, Right Duarte Radiata, and Bilateral Cerebellar Cerebrovascular Accidents - CT head = "no acute large vascular territory infarct. Age indeterminate right frontal lobe, right duarte radiata, and bilateral cerebellar infarcts. MRI could better assess." - Consulted Neurology and spoke with Dr. Figueroa - recommendations appreciated - Continue aspirin, atorvastatin, folic acid, clopidogrel - NIHSS = 2 - q4hr neurochecks - Ordered MR brain - Order MRA head/neck if cleared by Nephrology - Ordered TTE - Carotid artery ultrasound = "bilateral calcified plaquing changes in the bilateral carotid bulbs and ICAs. Currently findings do not result in hemodynamically significant stenosis" - PT/OT evaluation requested - Ordered risk profile: - Hgb A1c = 7.7 % - Lipid panel = TC 138, TG 102, LDL 66, HDL 52 - TSH = 0.877 # KDIGO Stage I Acute Kidney Injury on Chronic Kidney Disease Stage III - Nephrology consulted - recommendations appreciated - Creatinine = 2.58 -> 2.20 (creatinine was 1.78 in July 2022 per outside records) - Urinalysis = 1+ protein - Renal ultrasound = "no hydronephrosis or suspicious mass. No identifiable medical renal disease. Enlarged lobulated prostate gland projecting into the bladder base. 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
[2022-09-24] MEDS ORDERED: NACHLORIDE 0.45% 1,000 ML IV SCH (17:00)
[2022-09-24] MEDS ORDERED: KCL 20 MEQ/100 mL IVPB 100 ML IV SCH (17:00)
[2022-09-24] MEDS: METOPROLOL TAR 25 MG TAB PO SCH (18:34)
--- NOTE | 2022-09-24 21:12 | CON ---
Date of Consultation: 09/24/2022 Reason For Consult: Acute renal failure. History Of Present Illness: Mr. Powers is an 82-year-old male with past medical history significan t for history of insulin-dependent diabetes, hypertension, hypothyroidism, and chronic diastolic hear t failure who presented to the emergency room with left-sided weakness, which began 2 days prior to a dmission. He was evaluated and his labs were significant for acute renal failure with a creatinine o f 2.58 with possible baseline creatinine of 2. He had an age-indeterminate right frontal lobe infarc t; however, he was not admitted any tPA and he has been admitted for further evaluation and managemen t. Past Medical History: Significant for history of insulin-dependent diabetes, hypertension, hyperlipi demia, chronic kidney disease, chronic diastolic heart failure, hypothyroidism, coronary artery disea se with history of CABG in 2006. Family History: Noncontributory. Social History: He has no history of smoking or alcohol use reported. Physical Examination: Vital Signs: Temperature of 98.3, pulse rate of 76, respiratory rate of 16, and blood pressure 160/7 2. General: He appears in no acute distress. HEENT: Atraumatic head. Abdomen: Soft and nontender. Extremities: Left arm and left leg weakness were noted with decreased motor strength. Neuro: He is alert and awake at this time. Laboratory Data: At this time are showing creatinine improving to 2.2 from 2.5, BUN of 55, bicarb of 24, potassium of 3.2, and sodium of 139. CBC showing stable hemoglobin, hematocrit, and platelet co unt. Medications: Current medications include amlodipine 5 mg daily, aspirin, atorvastatin, folic acid, P lavix, heparin for DVT prophylaxis, and normal saline at 75 cc an hour. Impression: 1.[id number] renal insufficiency, likely secondary to acute tubular necrosis, currently with i mproving renal function. The patient had a renal ultrasound done, which showed enlarged prostate gla nd, but no evidence of hydronephrosis at this time. I will discontinue IV fluids and switch to half NS with potassium chloride to improve his potassium as well as continue gentle hydration at this time . 2.Possible acute cerebrovascular accident. The patient has had a CT scan done consistent with some indeterminate age of stroke. He has had bilateral carotid arterial Dopplers done, which showed bilat eral calcified blocking consistent, but noted hemodynamically significant stenosis was noted. He citlali l need a neurology workup and followup. 3.Hypertension. Resume home medications and switch to half NS to avoid further worsening of hyperte nsion. 4.Chronic diastolic heart failure. He was on Lasix at home, which is currently on hold. His volume status seems compensated. History of coronary artery disease status post CABG. The patient's cardi ac parameters seem stable at this time. Plan: Overall, the patient's renal function is doing okay. We will switch IV fluids to half NS with potassium chloride to improve his electrolyte status and blood pressure status and continue hydratio n and we will follow the patient with you. Thank you very much for this consultation. Please do not hesitate to call us with any questions or c oncerns. FLACO/OFE Voice ID: [id number] Report ID: [id number]
[2022-09-24] MEDS: ATORVASTATIN 40 MG TAB PO SCH (22:12)
[2022-09-25 03:45] LABS: Absolute Lymphocytes (CBC) 2.5 K/uL (0.7-4.9); MPV 8.8 fL (7.6-11.3)
[2022-09-25 03:53] LABS: Lymphocytes % 29.9 % (15.3-44.8); MCV 83.6 fL (80-100); RBC Red Blood Cell Count 4.19 M/uL (4.33-5.43)
[2022-09-25 03:58] LABS: Potassium 3.6 mmol/L (3.5-5.1)
[2022-09-25] MEDS: METOPROLOL TAR 25 MG TAB PO SCH ×2 (06:00→17:54)
--- NOTE | 2022-09-25 09:04 | RAD REPORT ---
EXAM DESCRIPTION: MRI - Brain Wo Cont - 09/25/2022 8:50 am CLINICAL HISTORY: Left sided weakness Headache, drowsiness, CVA symptomology COMPARISON: Head Brain Wo Cont dated 09/23/2022 TECHNIQUE: Multi-sequence, multiplanar MR imaging of the brain was performed without contrast. FINDINGS: No intracranial hemorrhage, hydrocephalus or extra-axial fluid collections.Prominent diffu se brain atrophy. Moderate confluent T2/FLAIR hyperintensity in the periventricular and deep white ma tter is present compatible with chronic microvascular ischemic changes. No edema or shift of midline structures. No findings to suspect brain mass. 9 mm area of restricted diffusion is seen involving th e anterior right aries in the approximate location of the pyramidal tract. This is compatible with acu te CVA. There are very small areas of restricted diffusion also seen left posterior occipital region adjacent to the lateral ventricle posterior horn. Midline structures are normally formed. Left maxillary sinus is opacified. 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 Tiny possible micro infarcts left occipital lobe.
[2022-09-25] MEDS: ASPIRIN EC 81 MG TAB PO SCH (09:10)
[2022-09-25] MEDS: FOLIC ACID 1 MG TABLET PO SCH (09:10)
[2022-09-25] MEDS: AMLODIPINE 5 MG TAB PO SCH (09:10)
[2022-09-25] MEDS: HEPARIN 5000 UNIT/ML 1 ML VIAL SQ SCH ×2 (09:11→21:15)
[2022-09-25] MEDS: CLOPIDOGREL 75 MG TABLET PO SCH (09:11)
[2022-09-25] MEDS: INSULIN -REGULAR HUMAN 50 UNIT/0.5 ML ML SQ SCH ×4 (09:33→21:16)
--- NOTE | 2022-09-25 12:27 | P.PN ---
Nephrology note (S) Pt had no acute complaints this AM, still with Lt UE weakness, MRI brain report findings noted. (O) Vitals reviewed in the EMR Physical Examination: General: He appears in no acute distress. HEENT: Atraumatic head, sclera anicteric Resp: b/l air entry, no rhonchi CVS: RRR mostly Abdomen: Soft, ND and nontender. Extremities: Neuro: He is alert and awake at this time. Lt UE weakness noted Laboratory Data: Reviewed in the EMR 1. Stage 1 RALF on underlying CKD NOS, renal u/s image findings reviewed, no hydro but appears to have duplicated collecting system on the left. Cr level downward trending. UA on admission not too impressive. Will d/c IVF 2. Acute cerebrovascular accident. MRI findings noted, allow for permissive HTN, further reccs per Neurology. 3. Hypertension -as per above, longer term target BP < 140/90, if renal function continues to improve, ACEi/SAMPSON inhibitors can be employed. Jose Wolff MD, ODELL
--- NOTE | 2022-09-25 16:55 | EKG ---
Test Date: 2022-09-23 Test Time: 15:47:00 [employer]: MB MEASUREMENT RESULTS: Intervals: Rate: 84 AR: 142 QRSD: 94 QT: 352 QTc: 415 Maribel: P: 59 AR: 142 QRS: -16 T: 119 INTERPRETIVE STATEMENTS: Sinus rhythm with occasional premature ventricular complexes Nonspecific T wave abnormality Abnormal ECG No previous ECG available for comparison Electronically Signed On 09-25-22 16:52:36 CHIEF NURSE ANESTHETIST by Yandel Woodall
[2022-09-25] MEDS ORDERED: NA CHLORIDE 0.9% 1,000 ML IV SCH (19:00)
[2022-09-25] MEDS: ATORVASTATIN 40 MG TAB PO SCH (21:15)
[2022-09-26 00:06] VITALS: O2SAT 97
[2022-09-26] MEDS: METOPROLOL TAR 25 MG TAB PO SCH ×2 (05:18→17:00)
[2022-09-26 05:45] LABS: Absolute Lymphocytes (CBC) 2.7 K/uL (0.7-4.9); Hematocrit 33.9 % (39.6-49.0); Lymphocytes % 35.8 % (15.3-44.8); MCV 83.3 fL (80-100); MPV 8.6 fL (7.6-11.3); RBC Red Blood Cell Count 4.07 M/uL (4.33-5.43)
[2022-09-26 05:57] LABS: Potassium 3.4 mmol/L (3.5-5.1)
[2022-09-26 06:45] LABS: Blood Morphology Comment NOT SEEN (NOT SEEN); Platelet Estimate ADEQ
[2022-09-26] MEDS: INSULIN -REGULAR HUMAN 50 UNIT/0.5 ML ML SQ SCH ×3 (07:30→17:00)
--- NOTE | 2022-09-26 08:54 | ECHO ---
HEIGHT: 5 ft 7 in WEIGHT: 165 lb 0 oz DATE OF STUDY: 09/25/[address]: Donn Rodriguez NP 2-DIMENSIONAL: YES M.MODE: YES DOPPLER: YES COLOR FLOW: YES TDS: NO PORTABLE: YES DEFINITY: NO BUBBLE STUDY: NO DIAGNOSIS: SUSPECTED CEREBRAL VASCULAR ACCIDENT CARDIAC HISTORY: CATHERIZATION: YES SURGERY: YES PROSTHETIC VALVE: NO PACEMAKER: NO MEASUREMENTS (cm) DIASTOLIC (NORMALS) SYSTOLIC (NORMALS) IVSd 1.0 (0.6-1.2) LA Diam 3.1 (1.9-4.0) LVEF 60-65% LVIDd 5.1 (3.5-5.7) LVIDs 3.1 (2.0-3.5) %FS 38% LVPWd 1.1 (0.6-1.2) Ao Diam 2.5 (2.0-3.7) 2 DIMENSIONAL ASSESSMENT: RIGHT ATRIUM: NORMAL LEFT ATRIUM: NORMAL RIGHT VENTRICLE: NORMAL LEFT VENTRICLE: NORMAL TRICUSPID VALVE: MILD TRICUSPID REGURGITATION MITRAL VALVE: MITRAL ANNULAR CALCIFICATION WITH MILD MITRAL REGURGITATION PULMONIC VALVE: NORMAL AORTIC VALVE: THICKENED AORTIC VALVE, NO AORTIC STENOSIS PERICARDIAL EFFUSION: NONE AORTIC ROOT: NORMAL LEFT VENTRICULAR WALL MOTION: NORMAL. DOPPLER/COLOR FLOW: SEE BELOW. COMMENTS: 1. NORMAL LEFT VENTRICULAR EJECTION FRACTION 60-65%. 2. NORMAL WALL MOTION 3. MITRAL ANNULAR CALCIFICATION WITH MILD MITRAL REGURGITATION. 4. MILD TRICUSPID REGURGITATION. 5. AORTIC VALVE SCLEROSIS, NO AORTIC STENOSIS. 6. MODERATE DIASTOLIC DYSFUNCTION. TECHNOLOGIST: ANT HOUSTON
[2022-09-26] MEDS: FOLIC ACID 1 MG TABLET PO SCH (08:58)
[2022-09-26] MEDS: HEPARIN 5000 UNIT/ML 1 ML VIAL SQ SCH (08:58)
[2022-09-26] MEDS: CLOPIDOGREL 75 MG TABLET PO SCH (08:58)
[2022-09-26] MEDS: ASPIRIN EC 81 MG TAB PO SCH (08:58)
[2022-09-26] MEDS: AMLODIPINE 5 MG TAB PO SCH (08:59)
--- NOTE | 2022-09-26 09:49 | P.PN ---
Nephrology note (S) Pt does not report any CP or dyspnea, Lt UE weakness stable. (O) Vitals reviewed in the EMR Physical Examination: General: He appears in no acute distress. HEENT: Atraumatic head, sclera anicteric Resp: b/l air entry, no rhonchi CVS: RRR mostly Abdomen: Soft, ND and nontender. Extremities: Neuro: He is alert and awake at this time. Lt UE weakness noted Laboratory Data: Reviewed in the EMR 1. Stage 1 RALF on underlying CKD NOS resolved. Cr level has downward trended. D/c IVF. Disorder of kidney and/or ureter. 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 UA on admission not too impressive. 2. Acute cerebrovascular accident. MRI findings noted, allowed for initial permissive HTN, further reccs per Neurology. 3. Hypertension -as per above, longer term target BP < 140/90, as renal function continues to improve, lower dose ACEi/SAMPSON inhibitors can be employed given benefit post CVA. Jose Wolff MD, ODELL
[2022-09-26 16:36] VITALS: BP 149/70; TEMP 97.7
[2022-09-26] MEDS ORDERED: lisinopriL 10 MG TAB PO SCH (21:00)
== END 2022-09-26 18:07 | disposition home or self-care (01) | DRG 65 ==
LOC: ER 13:25 → ERHOLD 18:03 → 4TH 20:22
PROVIDERS: ADMIT Internal Medicine; ATTEND Hospitalist
DX: I63.9 Cerebral infarction, unspecified (principal); G81.94 Hemiplegia, unspecified affecting left nondominant side; I50.32 Chronic diastolic (congestive) heart failure; N17.9 Acute kidney failure, unspecified; I13.0 Hypertensive heart and chronic kidney disease with heart failure and stage 1 through stage 4 chronic kidney disease, or unspecified chronic kidney disease; N18.30 Chronic kidney disease, stage 3 unspecified; E11.22 Type 2 diabetes mellitus with diabetic chronic kidney disease; E11.65 Type 2 diabetes mellitus with hyperglycemia; E78.5 Hyperlipidemia, unspecified; E03.9 Hypothyroidism, unspecified; I25.10 Atherosclerotic heart disease of native coronary artery without angina pectoris; R29.702 NIHSS score 2; Z79.4 Long term (current) use of insulin; Z95.1 Presence of aortocoronary bypass graft; Z79.02 Long term (current) use of antithrombotics/antiplatelets; Z79.82 Long term (current) use of aspirin; Z79.890 Hormone replacement therapy; Z79.899 Other long term (current) drug therapy; Z20.822 Contact with and (suspected) exposure to COVID-19
CPT/HCPCS: 36415; 70450; 70551; 71045; 76770; 80048; 80061; 80076; 81003; 81015; 82565; 82947; 83036; 83735; 83880; 84439; 84443; 84484; 85025; 85610; 87811; 93005; 93306; 93880; 96365; 96366; 97112; 97116; 97161; 97165; 99285; J1644; J1815; J3480; J7030; J7050